=== PATIENT | female | born 1960 | race Caucasian/White ===

== ENCOUNTER 2016-11-22 16:37 | Observation (INO) | payer MEDICAID, MEDICARE ==
--- NOTE | 2016-11-22 17:05 | EDM.PDOC ---
<MagalyZak - Last Filed: 11/22/16 20:07> ED HPI GI/ABDOMINAL - General Chief Complaint: Gastrointestinal Problem Stated Complaint: STOMACH PAIN Time Seen by Provider: 11/22/16 16:54 Source of Information: Reports: Patient History Limitations: Reports: No limitations - History of Present Illness INITIAL COMMENTS - FREE TEXT/NARRATIVE: History of present illness: [56-year-old female presenting with acute abdominal pain specifically in the right upper quadrant. Patient has known history of cirrhotic liver and esophageal varices secondary to hepatitis C. She received treatment for hepatitis C and is cured but has subsequent sequelae a from previous disease process. Patient indicates she has been nauseated and vomiting, as well as having some black tarry stools.] Review of systems: As per history of present illness and below otherwise all systems reviewed and negative. Past medical history: As per history of present illness and as reviewed below otherwise noncontributory. Surgical history: As per history of present illness and as reviewed below otherwise noncontributory. Social history: No reported history of drug or alcohol abuse. Family history: As per history of present illness and as reviewed below otherwise noncontributory. Physical exam: HEENT: Atraumatic, normocephalic, pupils reactive, negative for conjunctival pallor or scleral icterus, mucous membranes moist, throat clear, neck supple, nontender, trachea midline. Lungs: Clear to auscultation, breath sounds equal bilaterally, chest nontender. Heart: S1S2, regular, negative for clicks, rubs, or JVD. Abdomen: Soft, nondistended, diffuse tenderness concentrated primarily in the right upper quadrant but with some amount of radiation to the pelvic area Negative for masses, slight amount of liver enlargement noted on palpation approximately 3 cm below last rib. Negative for costovertebral tenderness. Pelvis: Stable nontender. Genitourinary: Deferred. Rectal: Deferred. Extremities: Atraumatic, negative for cords or calf pain. Neurovascular unremarkable. Neuro: Awake, alert, oriented. Cranial nerves II through XII unremarkable. Cerebellum unremarkable. Motor and sensory unremarkable throughout. Exam nonfocal. Rectal exam performed and guaiac was slightly positive for GI bleed. With faint blue tinge to testing media. Patients CT positive for cirrhosis,cholilithiasis and ascites Diagnostics: [CBC, CMP, amylase, lipase, ammonia, CT of abdomen and pelvis] Therapeutics: [IV, Zofran] Impression: [Cirrhosis of the liver, ascites, GI bleed, ] Plan: [admit] Definitive disposition and diagnosis as appropriate pending reevaluation and review of above. - Related Data Allergies/ADRs: Allergies Allergy/AdvReac Type Severity Reaction Status Date / Time No Known Allergies Allergy Verified 11/22/16 17:10 Home Meds: Home Meds Ascorbic Acid/Vitamin E/Biotin [Hair Skin Nails-Biotin Gummies] 1 tab PO DAILY 11/22/16 [History] Cholecalciferol (Vitamin D3) [D3-2000] 5,000 units PO DAILY 11/22/16 [History] Cyanocobalamin (Vitamin B-12) [B-12] 500 mcg PO DAILY 11/22/16 [History] Eszopiclone [Lunesta] 3 mg PO QPM 11/22/16 [History] Fish Oil/DHA/EPA [Fish Oil 1,200 MG] 1,200 mg PO DAILY 11/22/16 [History] Furosemide [Lasix] 20 mg PO DAILY 11/22/16 [History] Ginkgo Biloba 60 mg PO DAILY 11/22/16 [History] Magnesium 250 mg PO DAILY 11/22/16 [History] Melatonin 5 mg PO BEDTIME 11/22/16 [History] Multivitamin [Multivitamins] 1 cap PO DAILY 11/22/16 [History] Pantoprazole [ProTONIX] 40 mg PO BID 11/22/16 [History] Propranolol [Inderal] 10 mg PO BID 11/22/16 [History] Selenium 200 mcg PO BID PRN 11/22/16 [History] Spironolactone [Aldactone] 50 mg PO DAILY 11/22/16 [History] Turmeric Root Extract [Turmeric] 500 mg PO TID 11/22/16 [History] Ubidecarenone [Coq10] 100 mg PO DAILY 11/22/16 [History] ED ROS GENERAL - Review of Systems Review Of Systems: See Below (The history of present illness) ED EXAM, GI/ABD - Physical Exam Exam: See Below (History of present illness) Course - Vital Signs Last Recorded V/S: Last Vital Signs Temp 36.8 C 11/22/16 18:49 Pulse 53 L 11/22/16 21:49 Resp 17 11/22/16 21:49 BP 99/51 L 11/22/16 21:49 Pulse Ox 91 L 11/22/16 21:49 - Orders/Labs/Meds Orders: Active Orders 24 hr Category Date Time Status Patient Status [ADT] Routine ADT 11/22/16 19:44 Active Antiembolic Devices [RC] PER UNIT ROUTINE Care 11/22/16 19:46 Active Intake and Output [RC] QSHIFT Care 11/22/16 19:45 Active Oxygen Therapy [RC] PRN Care 11/22/16 19:44 Active Up to Chair [RC] ASDIRECTED Care 11/22/16 19:44 Active VTE/DVT Education [RC] PER UNIT ROUTINE Care 11/22/16 19:44 Active Vital Signs [RC] Q4H Care 11/22/16 19:44 Active Clear Liquid Diet [DIET] Diet 11/22/16 Breakfast Active Abdomen Pelvis wo Cont [CT] Stat Exams 11/22/16 17:11 Taken CBC W/O DIFF,HEMOGRAM [HEME] AM Lab 11/23/16 05:11 Ordered COMPREHENSIVE METABOLIC PN,CMP [CHEM] AM Lab 11/23/16 05:11 Ordered Ciprofloxacin in D5W [Cipro in D5W 400 MG/200 ML] 400 Med 11/22/16 20:00 Active mg Premix Bag 1 bag IV Q12H Ondansetron [Zofran] Med 11/22/16 19:44 Active 4 mg IVPUSH Q4H PRN Pantoprazole [ProTONIX IV] 40 mg Med 11/22/16 19:45 Active Sodium Chloride 0.9% [Normal Saline] 10 ml IVPUSH Q12H metroNIDAZOLE/Normal Saline [Flagyl 500 MG in NS 100 ML Med 11/23/16 00:00 Active ] 500 mg Premix Bag 1 bag IV QID Sequential Compression Device [OM.PC] Per Unit Routine Oth 11/22/16 19:45 Ordered Resuscitation Status Routine Resus Stat 11/22/16 19:44 Ordered Medication Orders Pantoprazole Sodium 40 mg/ (Sodium Chloride) 10 mls @ 300 mls/hr IVPUSH Q12H GER Last Admin: 11/22/16 19:58 Dose: 300 mls/hr Ciprofloxacin/Dextrose 400 mg/ (Premix) 200 mls @ 200 mls/hr IV Q12H GER Last Admin: 11/22/16 20:31 Dose: 200 mls/hr Metronidazole 500 mg/ Premix 100 mls @ 100 mls/hr IV QID [facility] Last Admin: 11/22/16 23:20 Dose: 100 mls/hr Morphine Sulfate (Morphine) 2 mg IVPUSH Q2H PRN PRN Reason: Pain Last Admin: 11/22/16 23:16 Dose: 2 mg Ondansetron HCl (Zofran) 4 mg IVPUSH Q4H PRN PRN Reason: Nausea Propranolol HCl (Inderal) 10 mg PO BID [facility] Last Admin: 11/22/16 21:17 Dose: 10 mg Labs: Laboratory Tests 11/22/16 11/22/16 11/22/16 Range/Units 17:17 17:17 17:17 WBC 4.40 (4.0-11.0) K/uL RBC 4.35 (4.30-5.90) M/uL Hgb 14.3 (12.0-16.0) g/dL Hct 41.7 (36.0-46.0) % MCV 95.9 (80.0-98.0) fL MCH 32.9 H (27.0-32.0) pg MCHC 34.3 (31.0-37.0) g/dL RDW Std Deviation 56.4 (28.0-62.0) fl RDW Coeff of Tracey 16 H (11.0-15.0) % Plt Count 66 L (150-400) K/uL MPV 9.50 (7.40-12.00) fL Neut % (Auto) 48.5 (48.0-80.0) % Lymph % (Auto) 40.2 H (16.0-40.0) % [place] % (Auto) 9.1 (0.0-15.0) % Eos % (Auto) 2.0 (0.0-7.0) % Baso % (Auto) 0.2 (0.0-1.5) % Neut # (Auto) 2.1 (1.4-5.7) K/uL Lymph # (Auto) 1.8 (0.6-2.4) K/uL [place] # (Auto) 0.4 (0.0-0.8) K/uL Eos # (Auto) 0.1 (0.0-0.7) K/uL Baso # (Auto) 0.0 (0.0-0.1) K/uL Nucleated RBC % 0.0 /100WBC Nucleated RBCs # 0 K/uL INR (0.86-1.11) Sodium 137 (136-146) mmol/L Potassium 4.4 (3.5-5.1) mmol/L Chloride 105 (98-110) mmol/L Carbon Dioxide 25 (21-31) mmol/L BUN 12 (6.0-23.0) mg/dL Creatinine 0.9 (0.6-1.5) mg/dL Est Cr Clr Drug Dosing 59.11 mL/min Estimated GFR (MDRD) > 60.0 ml/min Glucose 87 (60-110) mg/dL Calcium 8.6 L (8.8-10.8) mg/dL Total Bilirubin 2.1 H (0.1-1.5) mg/dL AST 51 H (5-40) IU/L ALT 32 (8-54) IU/L Alkaline Phosphatase 111 (40-150) Ammonia 74 H (14-68) UG/DL Total Protein 6.7 (6.0-8.0) g/dL Albumin 2.9 L (3.5-5.0) g/dL Globulin 3.8 H (2.0-3.5) g/dL Albumin/Globulin Ratio 0.8 L (1.3-2.8) Amylase 89 (10-90) U/L Lipase 118 H (7-80) U/L 11/22/16 Range/Units 17:17 WBC (4.0-11.0) K/uL RBC (4.30-5.90) M/uL Hgb (12.0-16.0) g/dL Hct (36.0-46.0) % MCV (80.0-98.0) fL MCH (27.0-32.0) pg MCHC (31.0-37.0) g/dL RDW Std Deviation (28.0-62.0) fl RDW Coeff of Tracey (11.0-15.0) % Plt Count (150-400) K/uL MPV (7.40-12.00) fL Neut % (Auto) (48.0-80.0) % Lymph % (Auto) (16.0-40.0) % [place] % (Auto) (0.0-15.0) % Eos % (Auto) (0.0-7.0) % Baso % (Auto) (0.0-1.5) % Neut # (Auto) (1.4-5.7) K/uL Lymph # (Auto) (0.6-2.4) K/uL [place] # (Auto) (0.0-0.8) K/uL Eos # (Auto) (0.0-0.7) K/uL Baso # (Auto) (0.0-0.1) K/uL Nucleated RBC % /100WBC Nucleated RBCs # K/uL INR 1.28 H (0.86-1.11) Sodium (136-146) mmol/L Potassium (3.5-5.1) mmol/L Chloride (98-110) mmol/L Carbon Dioxide (21-31) mmol/L BUN (6.0-23.0) mg/dL Creatinine (0.6-1.5) mg/dL Est Cr Clr Drug Dosing mL/min Estimated GFR (MDRD) ml/min Glucose (60-110) mg/dL Calcium (8.8-10.8) mg/dL Total Bilirubin (0.1-1.5) mg/dL AST (5-40) IU/L ALT (8-54) IU/L Alkaline Phosphatase (40-150) Ammonia (14-68) UG/DL Total Protein (6.0-8.0) g/dL Albumin (3.5-5.0) g/dL Globulin (2.0-3.5) g/dL Albumin/Globulin Ratio (1.3-2.8) Amylase (10-90) U/L Lipase (7-80) U/L Meds: Medications Generic Name Dose Route Start Last Admin Trade Name Freq PRN Reason Stop Dose Admin Pantoprazole Sodium 40 mg/ 10 mls @ 300 mls/hr 11/22/16 19:45 11/22/16 19:58 Sodium Chloride IVPUSH 300 mls/hr Q12H GER Administration Ciprofloxacin/Dextrose 400 mg/ 200 mls @ 200 mls/hr 11/22/16 20:00 11/22/16 20:31 Premix IV 200 mls/hr Q12H GER Administration Metronidazole 500 mg/ Premix 100 mls @ 100 mls/hr 11/23/16 00:00 11/22/16 23: 20 IV 100 mls/hr QID GER Administration Morphine Sulfate 2 mg 11/22/16 20:39 11/22/16 23:16 Morphine IVPUSH 2 mg Q2H PRN Administration Pain Ondansetron HCl 4 mg 11/22/16 19:44 Zofran IVPUSH Q4H PRN Nausea Propranolol HCl 10 mg 11/22/16 21:00 11/22/16 21:17 Inderal PO 10 mg BID GER Administration Discontinued Medications Generic Name Dose Route Start Last Admin Trade Name Freq PRN Reason Stop Dose Admin Sodium Chloride 1,000 mls @ 999 mls/hr 11/22/16 17:10 11/22/16 17:30 Normal Saline IV 11/22/16 18:10 999 mls/hr STAT ONE Administration Morphine Sulfate 4 mg 11/22/16 17:10 11/22/16 17:41 Morphine IV 11/22/16 17:11 4 mg ONETIME ONE Administration Morphine Sulfate 4 mg 11/22/16 18:54 11/22/16 19:19 Morphine IV 11/22/16 18:55 4 mg ONETIME ONE Administration Non-Formulary Medication 10 mg 11/22/16 21:00 Propranolol PO BID GER Ondansetron HCl 8 mg 11/22/16 17:10 11/22/16 17:36 Zofran IVPUSH 11/22/16 17:11 8 mg ONETIME ONE Administration Departure - Departure Time of Disposition: 20:01 Disposition: Admitted As Inpatient 68 Condition: good Clinical Impression: Abdominal pain, Colitis, Cholelithiases, Cirrhosis <Miguelina Ambriz - Last Filed: 11/22/16 23:27> ED HPI GI/ABDOMINAL - History of Present Illness INITIAL COMMENTS - FREE TEXT/NARRATIVE: Please note that the case was discussed with our hospitalist Dr. White who also came to the ER to see the patient and evaluate her prior to admission.
[2016-11-22] MEDS ORDERED: Sodium Chloride 0.9% 1,000 ML IV ONE (17:10)
[2016-11-22] MEDS ORDERED: Ondansetron 4 MG/2 ML SDV IVPUSH ONE (17:10)
[2016-11-22] MEDS ORDERED: Morphine 10 MG/ML Syringe IV ONE ×2 (17:10→18:54)
[2016-11-22 17:46] LABS: CHLORIDE,CL 105 mmol/L (98-110); SODIUM,NA 137 mmol/L (136-146)
[2016-11-22] MEDS: Pantoprazole 40 MG in Sodium Chloride 0.9% 10 ML IVPUSH SCH (19:58)
--- NOTE | 2016-11-22 20:00 | PCM.HP ---
H&P History of Present Illness - General Admit Problem/Dx: Admission Diagnosis/Problem Admission Diagnosis/Problem Abdominal pain - History of Present Illness Initial Comments - Free Text/Narative: 56 yo female with pmh of Hepatitis C, liver cirrhosis with multiple banding procedures for esophageal varices. She presents with one day history of right lower quadrant abdominal pain and nausea. She reports dark stool yesterday. She denies any vomiting. She was evaluated in the ED and no melanotic stools were noted on rectal exam with mildly positive heme test. CT scan of the abdomen reported thickening of the ascending colon, cirrhosis of liver, and cholelithiasis. Abdominal Pain Score (Numeric/FACES): 5 - Related Data Allergies/Adverse Reactions: Allergies Allergy/AdvReac Type Severity Reaction Status Date / Time No Known Allergies Allergy Verified 11/22/16 17:10 Home Medications: Home Meds Eszopiclone [Lunesta] 3 mg PO QPM 11/22/16 [History] Furosemide [Lasix] 20 mg PO DAILY 11/22/16 [History] Pantoprazole [ProTONIX] 40 mg PO BID 11/22/16 [History] Propranolol [Inderal] 10 mg PO BID 11/22/16 [History] Spironolactone [Aldactone] 50 mg PO DAILY 11/22/16 [History] Past Medical History - Past Health History Medical/Surgical History: Denies Medical/Surgical History Gastrointestinal 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: Cirrhosis, Hepatitis, Other (see below) Other Gastrointestinal History: esophageal varicies - Infectious Disease History Infectious Disease 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: Chicken pox, Hepatitis C, Measles, Mumps - Past Surgical History GI Surgical 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: Colonoscopy, EGD, Esophageal dilatation Social & Family History - Family History Family Medical History: Noncontributory - Tobacco Use Smoking Status *Q: Light Tobacco Smoker Years of Tobacco use: 4 Packs/Tins Daily: 0.1 - Caffeine Use Caffeine Use: Reports: None - Recreational Drug Use Recreational Drug Use: No H&P Review of Systems - Review of Systems: Review Of Systems: See Below General: Reports: no symptoms HEENT: Reports: no symptoms Pulmonary: Reports: No Symptoms Cardiovascular: Reports: no symptoms Gastrointestinal: Reports: Abdominal pain, Black stool, Nausea. Denies: Bloody stool, Diarrhea, Hematochezia, Vomiting Genitourinary: Reports: no symptoms Musculoskeletal: Reports: no symptoms Skin: Reports: no symptoms Psychiatric: Reports: no symptoms Neurological: Reports: No Symptoms Hematologic/Lymphatic: Reports: no symptoms Immunologic: Reports: no symptoms Exam - Exam Exam: See Below - Vital Signs Vital Signs: Last Vital Signs Temp 36.8 C 11/22/16 18:49 Pulse 52 L 11/22/16 19:18 Resp 18 11/22/16 19:18 BP 102/58 L 11/22/16 19:18 Pulse Ox 95 11/22/16 19:18 Weight: 52.6 kg - Exam General: alert, oriented, 4 Lungs: Clear to auscultation, Normal respiratory effort Cardiovascular: regular rate, regular rhythm Abdomen: normal bowel sounds, tenderness (right sided). No: distention, guarding, rigidity Extremities: normal inspection. No: edema - Patient Data Lab Results last 24 hrs: Laboratory Results - last 24 hr 11/22/16 11/22/16 11/22/16 Range/Units 17:17 17:17 17:17 WBC 4.40 (4.0-11.0) K/uL RBC 4.35 (4.30-5.90) M/uL Hgb 14.3 (12.0-16.0) g/dL Hct 41.7 (36.0-46.0) % MCV 95.9 (80.0-98.0) fL MCH 32.9 H (27.0-32.0) pg MCHC 34.3 (31.0-37.0) g/dL RDW Std Deviation 56.4 (28.0-62.0) fl RDW Coeff of Tracey 16 H (11.0-15.0) % Plt Count 66 L (150-400) K/uL MPV 9.50 (7.40-12.00) fL Neut % (Auto) 48.5 (48.0-80.0) % Lymph % (Auto) 40.2 H (16.0-40.0) % [place] % (Auto) 9.1 (0.0-15.0) % Eos % (Auto) 2.0 (0.0-7.0) % Baso % (Auto) 0.2 (0.0-1.5) % Neut # (Auto) 2.1 (1.4-5.7) K/uL Lymph # (Auto) 1.8 (0.6-2.4) K/uL [place] # (Auto) 0.4 (0.0-0.8) K/uL Eos # (Auto) 0.1 (0.0-0.7) K/uL Baso # (Auto) 0.0 (0.0-0.1) K/uL Nucleated RBC % 0.0 /100WBC Nucleated RBCs # 0 K/uL INR (0.86-1.11) Sodium 137 (136-146) mmol/L Potassium 4.4 (3.5-5.1) mmol/L Chloride 105 (98-110) mmol/L Carbon Dioxide 25 (21-31) mmol/L BUN 12 (6.0-23.0) mg/dL Creatinine 0.9 (0.6-1.5) mg/dL Est Cr Clr Drug Dosing 59.11 mL/min Estimated GFR (MDRD) > 60.0 ml/min Glucose 87 (60-110) mg/dL Calcium 8.6 L (8.8-10.8) mg/dL Total Bilirubin 2.1 H (0.1-1.5) mg/dL AST 51 H (5-40) IU/L ALT 32 (8-54) IU/L Alkaline Phosphatase 111 (40-150) Ammonia 74 H (14-68) UG/DL Total Protein 6.7 (6.0-8.0) g/dL Albumin 2.9 L (3.5-5.0) g/dL Globulin 3.8 H (2.0-3.5) g/dL Albumin/Globulin Ratio 0.8 L (1.3-2.8) Amylase 89 (10-90) U/L Lipase 118 H (7-80) U/L 11/22/16 Range/Units 17:17 WBC (4.0-11.0) K/uL RBC (4.30-5.90) M/uL Hgb (12.0-16.0) g/dL Hct (36.0-46.0) % MCV (80.0-98.0) fL MCH (27.0-32.0) pg MCHC (31.0-37.0) g/dL RDW Std Deviation (28.0-62.0) fl RDW Coeff of Tracey (11.0-15.0) % Plt Count (150-400) K/uL MPV (7.40-12.00) fL Neut % (Auto) (48.0-80.0) % Lymph % (Auto) (16.0-40.0) % [place] % (Auto) (0.0-15.0) % Eos % (Auto) (0.0-7.0) % Baso % (Auto) (0.0-1.5) % Neut # (Auto) (1.4-5.7) K/uL Lymph # (Auto) (0.6-2.4) K/uL [place] # (Auto) (0.0-0.8) K/uL Eos # (Auto) (0.0-0.7) K/uL Baso # (Auto) (0.0-0.1) K/uL Nucleated RBC % /100WBC Nucleated RBCs # K/uL INR 1.28 H (0.86-1.11) Sodium (136-146) mmol/L Potassium (3.5-5.1) mmol/L Chloride (98-110) mmol/L Carbon Dioxide (21-31) mmol/L BUN (6.0-23.0) mg/dL Creatinine (0.6-1.5) mg/dL Est Cr Clr Drug Dosing mL/min Estimated GFR (MDRD) ml/min Glucose (60-110) mg/dL Calcium (8.8-10.8) mg/dL Total Bilirubin (0.1-1.5) mg/dL AST (5-40) IU/L ALT (8-54) IU/L Alkaline Phosphatase (40-150) Ammonia (14-68) UG/DL Total Protein (6.0-8.0) g/dL Albumin (3.5-5.0) g/dL Globulin (2.0-3.5) g/dL Albumin/Globulin Ratio (1.3-2.8) Amylase (10-90) U/L Lipase (7-80) U/L Result Diagrams: 11/22/16 17:17 11/22/16 17:17 *Q Meaningful Use (ADM) - VTE *Q VTE Criteria *Q: - Stroke *Q Stroke Criteria *Q: - AMI *Q AMI Criteria *Q: Problem List Initiated/Reviewed/Updated: Yes Orders Last 24hrs: Active Orders 24 hr Category Date Time Status Patient Status [ADT] Routine ADT 11/22/16 19:44 Ordered Antiembolic Devices [RC] PER UNIT ROUTINE Care 11/22/16 19:46 Ordered Intake and Output [RC] QSHIFT Care 11/22/16 19:45 Ordered Oxygen Therapy [RC] PRN Care 11/22/16 19:44 Ordered Up to Chair [RC] ASDIRECTED Care 11/22/16 19:44 Ordered VTE/DVT Education [RC] PER UNIT ROUTINE Care 11/22/16 19:44 Ordered Vital Signs [RC] Q4H Care 11/22/16 19:44 Ordered Clear Liquid Diet [DIET] Diet 11/22/16 Breakfast Ordered Abdomen Pelvis wo Cont [CT] Stat Exams 11/22/16 17:11 Taken CBC W/O DIFF,HEMOGRAM [HEME] AM Lab 11/23/16 05:11 Ordered COMPREHENSIVE METABOLIC PN,CMP [CHEM] AM Lab 11/23/16 05:11 Ordered Ondansetron [Zofran] Med 11/22/16 19:44 Ordered 4 mg IVPUSH Q4H PRN Pantoprazole [ProTONIX IV] 40 mg Med 11/22/16 19:45 Ordered Sodium Chloride 0.9% [Normal Saline] 10 ml IVPUSH Q12H Sequential Compression Device [OM.PC] Per Unit Routine Oth 11/22/16 19:45 Ordered Resuscitation Status Routine Resus Stat 11/22/16 19:44 Ordered Medication Orders Pantoprazole Sodium 40 mg/ (Sodium Chloride) 10 mls @ 300 mls/hr IVPUSH Q12H GER Ondansetron HCl (Zofran) 4 mg IVPUSH Q4H PRN PRN Reason: Nausea Assessment/Plan Comment:: 56 yo female presented with right sided abdominal pain. I suspect colitis. Patient has received one liter of fluids. Will start Flagyl and ciprofloxacin. I spoke with Dr. Pham regarding her report of dark stools, abdominal pain and history of varices. As the patient was stable and active bleeding was thought less likely he did not believe endoscopy was needed and recommended outpatient GI follow up. Patient will continue protonix and propranolol.
[2016-11-22] MEDS: Ciprofloxacin in D5W 400 MG in Premix Bag 1 BAG IV SCH ×2 (20:31)
[2016-11-22] MEDS ORDERED: PROPRANOLOL 10 MG PO SCH (21:00)
[2016-11-22] MEDS: Propranolol 20 MG Tab PO SCH (21:17)
[2016-11-22] MEDS: Morphine 2 MG/ML Syringe IVPUSH PRN (23:16)
[2016-11-22] MEDS: metroNIDAZOLE/Normal Saline 500 MG in Premix Bag 1 BAG IV SCH (23:20)
[2016-11-22] MEDS: Ondansetron 4 MG/2 ML SDV IVPUSH PRN (23:27)
[2016-11-23] MEDS ORDERED: diphenhydrAMINE 25 MG Cap PO PRN (00:05)
[2016-11-23] MEDS: Morphine 2 MG/ML Syringe IVPUSH PRN ×6 (01:26→12:37)
[2016-11-23] MEDS: Ondansetron 4 MG/2 ML SDV IVPUSH PRN ×2 (04:07→10:45)
[2016-11-23 05:53] LABS: CHLORIDE,CL 107 mmol/L (98-110); SODIUM,NA 138 mmol/L (136-146)
[2016-11-23] MEDS: metroNIDAZOLE/Normal Saline 500 MG in Premix Bag 1 BAG IV SCH ×2 (06:03→11:10)
[2016-11-23] MEDS: Pantoprazole 40 MG in Sodium Chloride 0.9% 10 ML IVPUSH SCH (06:52)
[2016-11-23] MEDS: Ciprofloxacin in D5W 400 MG in Premix Bag 1 BAG IV SCH ×2 (07:22)
[2016-11-23] MEDS ORDERED: Acetaminophen 325 MG Tab PO PRN (07:37)
[2016-11-23] MEDS ORDERED: Promethazine 25 MG/ML SDV IM PRN (07:38)
[2016-11-23] MEDS: Propranolol 20 MG Tab PO SCH (08:32)
[2016-11-23] MEDS ORDERED: traMADol 50 MG Tab PO PRN (09:13)
--- NOTE | 2016-11-23 09:13 | PCM.PN ---
- General Info Date of Service: 11/23/16 - Patient Data Vitals - most recent: Last Vital Signs Temp 97.6 F 11/23/16 08:30 Pulse 61 11/23/16 08:30 Resp 12 11/23/16 08:30 BP 104/59 L 11/23/16 08:30 Pulse Ox 90 L 11/23/16 08:30 Weight - most recent: 114 lb 4.8 oz I&O - last 24 hours: Intake & Output 11/22/16 11/23/16 11/23/16 22:59 06:59 14:59 Intake Total 200 500 200 Output Total 600 Balance 200 -100 200 Lab Results last 24 hrs: Laboratory Results - last 24 hr 11/23/16 11/23/16 Range/Units 04:49 04:49 WBC 4.70 (4.0-11.0) K/uL RBC 4.09 L (4.30-5.90) M/uL Hgb 13.5 (12.0-16.0) g/dL Hct 39.3 (36.0-46.0) % MCV 96.1 (80.0-98.0) fL MCH 33.0 H (27.0-32.0) pg MCHC 34.4 (31.0-37.0) g/dL RDW Std Deviation 55.8 (28.0-62.0) fl RDW Coeff of Tracey 16 H (11.0-15.0) % Plt Count 39 L (150-400) K/uL MPV 10.10 (7.40-12.00) fL Nucleated RBC % 0.0 /100WBC Nucleated RBCs # 0 K/uL Sodium 138 (136-146) mmol/L Potassium 4.1 (3.5-5.1) mmol/L Chloride 107 (98-110) mmol/L Carbon Dioxide 22 (21-31) mmol/L BUN 13 (6.0-23.0) mg/dL Creatinine 0.8 (0.6-1.5) mg/dL Est Cr Clr Drug Dosing 65.80 mL/min Estimated GFR (MDRD) > 60.0 ml/min Glucose 61 (60-110) mg/dL Calcium 7.9 L (8.8-10.8) mg/dL Total Bilirubin 2.3 H (0.1-1.5) mg/dL AST 44 H (5-40) IU/L ALT 29 (8-54) IU/L Alkaline Phosphatase 93 (40-150) Total Protein 6.2 (6.0-8.0) g/dL Albumin 2.8 L (3.5-5.0) g/dL Globulin 3.4 (2.0-3.5) g/dL Albumin/Globulin Ratio 0.8 L (1.3-2.8) Med Orders - Current: Current Medications Acetaminophen (Tylenol) 325 mg PO Q8H PRN PRN Reason: Pain/Fever Last Admin: 11/23/16 08:32 Dose: 325 mg Diphenhydramine HCl (Benadryl) 25 mg PO Q6H PRN PRN Reason: Itching Last Admin: 11/23/16 00:47 Dose: 25 mg Pantoprazole Sodium 40 mg/ (Sodium Chloride) 10 mls @ 300 mls/hr IVPUSH Q12H [facility] Last Admin: 11/23/16 06:52 Dose: 300 mls/hr Ciprofloxacin/Dextrose 400 mg/ (Premix) 200 mls @ 200 mls/hr IV Q12H [facility] Last Admin: 11/23/16 07:22 Dose: 200 mls/hr Metronidazole 500 mg/ Premix 100 mls @ 100 mls/hr IV QID [facility] Last Admin: 11/23/16 06:03 Dose: 100 mls/hr Morphine Sulfate (Morphine) 2 mg IVPUSH Q2H PRN PRN Reason: Pain Last Admin: 11/23/16 07:22 Dose: 2 mg Ondansetron HCl (Zofran) 4 mg IVPUSH Q4H PRN PRN Reason: Nausea Last Admin: 11/23/16 04:07 Dose: 4 mg Promethazine HCl (Phenergan) 12.5 mg IM Q6H PRN PRN Reason: Abdominal Pain Last Admin: 11/23/16 07:51 Dose: 12.5 mg Propranolol HCl (Inderal) 10 mg PO BID [facility] Last Admin: 11/23/16 08:32 Dose: 10 mg Discontinued Medications Sodium Chloride (Normal Saline) 1,000 mls @ 999 mls/hr IV STAT ONE Stop: 11/22/16 18:10 Last Admin: 11/22/16 17:30 Dose: 999 mls/hr Morphine Sulfate (Morphine) 4 mg IV ONETIME ONE Stop: 11/22/16 17:11 Last Admin: 11/22/16 17:41 Dose: 4 mg Morphine Sulfate (Morphine) 4 mg IV ONETIME ONE Stop: 11/22/16 18:55 Last Admin: 11/22/16 19:19 Dose: 4 mg Non-Formulary Medication (Propranolol) 10 mg PO BID GER Ondansetron HCl (Zofran) 8 mg IVPUSH ONETIME ONE Stop: 11/22/16 17:11 Last Admin: 11/22/16 17:36 Dose: 8 mg - Plan Plan:: 56 yo female presented with right sided abdominal pain. I suspect colitis. Patient has received one liter of fluids. Will start Flagyl and ciprofloxacin. I spoke with Dr. Pham regarding her report of dark stools, abdominal pain and history of varices. As the patient was stable and active bleeding was thought less likely he did not believe endoscopy was needed and recommended outpatient GI follow up. Patient will continue protonix and propranolol.
[2016-11-23] MEDS ORDERED: LORazepam 0.5 MG Tab PO PRN (09:15)
[2016-11-23 12:07] VITALS: BP 97/61
--- NOTE | 2016-11-23 14:09 | CT ---
EXAM DATE: 11/22/16 PATIENT'S AGE: 56 Patient: AURA SANTOYO Facility: [place], [place] Site . Site : [id number] Study: CT Abdomen/Pelvis [id number]/10/2017 5:32:18 PM Ordering Physician: Doctor Coto Final Report: INDICATION: abd pain TECHNIQUE: CT abdomen and pelvis without contrast. COMPARISON: None FINDINGS: Lower chest: Obstructive lung disease. Mild scarring /atelectasis. Liver: Nodular contour of the liver. Spleen: Splenomegaly. Pancreas: Unremarkable. Gallbladder and bile ducts: Cholelithiasis. Kidneys: Unremarkable. No kidney or ureteral stones and no hydronephrosis. Adrenal glands: Unremarkable. GI tract: Apparent thickening of the ascending colon. Appendix is normal. Vascular structures: Varicosities. Atherosclerotic disease. Lymph nodes: Unremarkable. Miscellaneous: Unremarkable. Ascites. Pelvic Organs: Unremarkable. Bones: Degenerative changes. IMPRESSION: 1. Apparent thickening of the ascending colon. Please correlate for colitis. 2. Cirrhosis with findings consistent with portal hypertension. 3. Nonspecific ascites. 4. Cholelithiasis. Dictated by Umer Fernández MD @ 11/22/2016 6:12:14 PM Dictated by: Umer Fernández MD @ 11/22/2016 18:12:44 (Electronic Signature) Report Signed by Proxy and Original Signed Document filed in the Medical Record. [facility]
--- NOTE | 2016-11-25 11:52 | PCM.DCSUM1 ---
Discharge Summary - Hospital Course Free Text/Narrative:: admission diagnosis: 1.lower abdominal pain with nausea 2. liver cirrhosis 3. melena Discharge diagnosis: 1. lower abdominal pain with nausea, improved 2. liver cirrhosis 3. cholelithiasis 4. thrombocytopenia 56 year old female with a history of liver cirrhosis, hepatits C, esophageal varices that was admitted with lower abdominal pain and nausea. Heme occult was only mildly positive. Abdomen/pelvis CT showed thickening of the ascending colon suggestive of colitis, liver cirrhosis with portal HTN, cholelithiasis and ascites. LFT's were normal. AST, ammonia and lipase were slightly elevated. WBC count was normal. Patient started on IV ciprofloxacin and Flagyl and IV protonix. Patient given tramadol at suggestion of hospital pharmacist given the patients liver cirrhosis which helped control and improve the patients abdominal pain. CBC showed a worsening platelet count (66 to 39). GI specialist in [place] was contacted due to the low platelet count and he did not think the patient needed to be transferred for a platelet infusion if she was not actively bleeding. INR was 1.28. Patient received zofran for nausea which helped. Patient felt improved at time of discharge. - Discharge Data Discharge Date: 11/23/16 Discharge Disposition: Home, Self-Care 01 Condition: Fair - Patient Instructions Diet: Usual Diet as Tolerated Activity: As Tolerated Driving: May Drive Today Showering/Bathing: May Shower Notify Provider of: Fever, Increased Pain, Nausea and/or Vomiting Other/Special Instructions: Patient needs appointment setup with a GI specialist secondary to liver cirrhosis, esophageal varices, and low platelet count - Discharge Plan Prescriptions/Med Rec: Ciprofloxacin [Ciprofloxacin HCl] 500 mg PO BID #12 tablet Ondansetron [Zofran ODT] 4 mg PO Q4H PRN #30 tab.dis PRN Reason: Nausea metroNIDAZOLE [Flagyl] 500 mg PO Q6H #24 tablet traMADol [Ultram] 50 mg PO TID PRN #4 tablet PRN Reason: Pain Home Medications: Home Meds Ascorbic Acid/Vitamin E/Biotin [Hair Skin Nails-Biotin Gummies] 1 tab PO DAILY 11/22/16 [History] Cholecalciferol (Vitamin D3) [D3-2000] 5,000 units PO DAILY 11/22/16 [History] Cyanocobalamin (Vitamin B-12) [B-12] 500 mcg PO DAILY 11/22/16 [History] Eszopiclone [Lunesta] 3 mg PO QPM 11/22/16 [History] Fish Oil/DHA/EPA [Fish Oil 1,200 MG] 1,200 mg PO DAILY 11/22/16 [History] Furosemide [Lasix] 20 mg PO DAILY 11/22/16 [History] Ginkgo Biloba 60 mg PO DAILY 11/22/16 [History] Magnesium 250 mg PO DAILY 11/22/16 [History] Melatonin 5 mg PO BEDTIME 11/22/16 [History] Multivitamin [Multivitamins] 1 cap PO DAILY 11/22/16 [History] Pantoprazole [ProTONIX] 40 mg PO BID 11/22/16 [History] Propranolol [Inderal] 10 mg PO BID 11/22/16 [History] Selenium 200 mcg PO BID PRN 11/22/16 [History] Spironolactone [Aldactone] 50 mg PO DAILY 11/22/16 [History] Turmeric Root Extract [Turmeric] 500 mg PO TID 11/22/16 [History] Ubidecarenone [Coq10] 100 mg PO DAILY 11/22/16 [History] Ciprofloxacin [Ciprofloxacin HCl] 500 mg PO BID #12 tablet 11/23/16 [Rx] Ondansetron [Zofran ODT] 4 mg PO Q4H PRN #30 tab.dis 11/23/16 [Rx] metroNIDAZOLE [Flagyl] 500 mg PO Q6H #24 tablet 11/23/16 [Rx] traMADol [Ultram] 50 mg PO TID PRN #4 tablet 11/23/16 [Rx] Patient Handouts: Abdominal Pain, Adult, Tramadol tablets, Colitis, Ciprofloxacin tablets, Metronidazole tablets or capsules Referrals: [facility] [Outside] [facility] [Outside] Froilan Quintanilla MD [Ordering Only Provider] - 02/07/17 2:30 pm Queta Dumas MD [Physician] - 12/01/16 10:45 am - Discharge Summary/Plan Comment DC Time >30 min.: No Discharge Summary/Plan Comment: admission diagnosis: 1.lower abdominal pain with nausea 2. liver cirrhosis 3. melena Discharge diagnosis: 1. lower abdominal pain with nausea, improved 2. liver cirrhosis 3. cholelithiasis 4. thrombocytopenia 56 year old female with a history of liver cirrhosis, hepatits C, esophageal varices that was admitted with lower abdominal pain and nausea. Heme occult was only mildly positive. Abdomen/pelvis CT showed thickening of the ascending colon suggestive of colitis, liver cirrhosis with portal HTN, cholelithiasis and ascites. LFT's were normal. AST, ammonia and lipase were slightly elevated. WBC count was normal. Patient started on IV ciprofloxacin and Flagyl and IV protonix. Patient given tramadol at suggestion of hospital pharmacist given the patients liver cirrhosis which helped control and improve the patients abdominal pain. CBC showed a worsening platelet count (66 to 39). GI specialist in [place] was contacted due to the low platelet count and he did not think the patient needed to be transferred for a platelet infusion if she was not actively bleeding. INR was 1.28. Patient received zofran for nausea which helped. Patient felt improved at time of discharge. Discharge plan: 1. Patient will see Dr. Quintanilla, GI specialist in [place], on January 18. 2. f/u with Dr. Dumas, PCP. 3. Prescribed Ciprofloxacin 500mg BID for 6 days and Flagyl 500mg QID for 6 days. 4. Tramadol 50mg TID, 4 tabs, 0 refiils. - Patient Data Vitals - Most Recent: Last Vital Signs Temp 99.5 F 11/23/16 12:06 Pulse 55 L 11/23/16 12:06 Resp 12 11/23/16 12:06 BP 97/61 11/23/16 12:06 Pulse Ox 84 L 11/23/16 12:06 Weight - Most Recent: 114 lb 4.8 oz Med Orders - Current: Current Medications Discontinued Medications Acetaminophen (Tylenol) 325 mg PO Q8H PRN PRN Reason: Pain/Fever Last Admin: 11/23/16 08:32 Dose: 325 mg Diphenhydramine HCl (Benadryl) 25 mg PO Q6H PRN PRN Reason: Itching Last Admin: 11/23/16 00:47 Dose: 25 mg Sodium Chloride (Normal Saline) 1,000 mls @ 999 mls/hr IV STAT ONE Stop: 11/22/16 18:10 Last Admin: 11/22/16 17:30 Dose: 999 mls/hr Pantoprazole Sodium 40 mg/ (Sodium Chloride) 10 mls @ 300 mls/hr IVPUSH Q12H [facility] Last Admin: 11/23/16 06:52 Dose: 300 mls/hr Ciprofloxacin/Dextrose 400 mg/ (Premix) 200 mls @ 200 mls/hr IV Q12H [facility] Last Admin: 11/23/16 07:22 Dose: 200 mls/hr Metronidazole 500 mg/ Premix 100 mls @ 100 mls/hr IV QID [facility] Last Admin: 11/23/16 11:10 Dose: 100 mls/hr Lorazepam (Ativan) 0.5 mg PO BID PRN PRN Reason: Agitation Last Admin: 11/23/16 09:23 Dose: 0.5 mg Morphine Sulfate (Morphine) 4 mg IV ONETIME ONE Stop: 11/22/16 17:11 Last Admin: 11/22/16 17:41 Dose: 4 mg Morphine Sulfate (Morphine) 4 mg IV ONETIME ONE Stop: 11/22/16 18:55 Last Admin: 11/22/16 19:19 Dose: 4 mg Morphine Sulfate (Morphine) 2 mg IVPUSH Q2H PRN PRN Reason: Pain Last Admin: 11/23/16 12:37 Dose: 2 mg Non-Formulary Medication (Propranolol) 10 mg PO BID [facility] Ondansetron HCl (Zofran) 8 mg IVPUSH ONETIME ONE Stop: 11/22/16 17:11 Last Admin: 11/22/16 17:36 Dose: 8 mg Ondansetron HCl (Zofran) 4 mg IVPUSH Q4H PRN PRN Reason: Nausea Last Admin: 11/23/16 10:45 Dose: 4 mg Promethazine HCl (Phenergan) 12.5 mg IM Q6H PRN PRN Reason: Abdominal Pain Last Admin: 11/23/16 07:51 Dose: 12.5 mg Propranolol HCl (Inderal) 10 mg PO BID [facility] Last Admin: 11/23/16 08:32 Dose: 10 mg Tramadol HCl (Ultram) 50 mg PO Q12HR PRN PRN Reason: headache Last Admin: 11/23/16 09:22 Dose: 50 mg *Q Meaningful Use (DIS) - VTE *Q VTE Criteria *Q: - Stroke *Q Stroke Criteria *Q: - AMI *Q AMI Criteria *Q:
== END 2016-11-23 13:23 | disposition home or self-care (01) ==
LOC: MW.ED 16:37 → MW.MS 19:44 → UNDOADMOB 19:44 → MW.MS 19:46 → UNDOADMOB 19:46 → MW.MS 20:03
PROVIDERS: ADMIT Internal Medicine; ATTEND Internal Medicine
DX: R10.30 Lower abdominal pain, unspecified (principal); K21.9 Gastro-esophageal reflux disease without esophagitis; D69.6 Thrombocytopenia, unspecified; F17.210 Nicotine dependence, cigarettes, uncomplicated; Z86.19 Personal history of other infectious and parasitic diseases; Z87.19 Personal history of other diseases of the digestive system; Z98.890 Other specified postprocedural states; Z79.899 Other long term (current) drug therapy; Z79.2 Long term (current) use of antibiotics
CPT/HCPCS: 36415; 74176; 80053; 82140; 82150; 83690; 85025; 85027; 85610; 96361; 96365; 96366; 96367; 96372; 96375; 96376; 99285; A9270; C9113; G0378; J0744; J2270; J2405; J2550; J7040; 96374; 99284

== ENCOUNTER 2017-02-15 18:19 | Emergency (ER) | payer MEDICARE ==
[2017-02-15] MEDS ORDERED: Diphtheria,Pertussis(Acell),Tetanus Vaccine 0.5 ML Syringe IM ONE (18:29)
[2017-02-15] MEDS ORDERED: Lidocaine 1% 20 ML MDV INJECT ONE (18:29)
--- NOTE | 2017-02-15 18:33 | EDM.PDOC ---
ED HPI GENERAL MEDICAL PROBLEM - General Chief Complaint: Laceration Stated Complaint: LACERATION LT INDEX FINGER Time Seen by Provider: 02/15/17 18:31 Source of Information: Reports: Patient - History of Present Illness INITIAL COMMENTS - FREE TEXT/NARRATIVE: HISTORY AND PHYSICAL: History of present illness: []Patient cut her finger with a knife, left index finger entirely neurovascularly intact tendons function intact pre-and post suture No fever nausea vomiting chills sweats Review of systems: As per history of present illness and below otherwise all systems reviewed and negative. Past medical history: As per history of present illness and as reviewed below otherwise noncontributory. Surgical history: As per history of present illness and as reviewed below otherwise noncontributory. Social history: No reported history of drug or alcohol abuse. Family history: As per history of present illness and as reviewed below otherwise noncontributory. Physical exam: HEENT: Atraumatic, normocephalic, pupils reactive, negative for conjunctival pallor or scleral icterus, mucous membranes moist, throat clear, neck supple, nontender, trachea midline. Lungs: Clear to auscultation, breath sounds equal bilaterally, chest nontender. Heart: S1S2, regular, negative for clicks, rubs, or JVD. Abdomen: Soft, nondistended, nontender. Negative for masses or hepatosplenomegaly. Negative for costovertebral tenderness. Pelvis: Stable nontender. Genitourinary: Deferred. Rectal: Deferred. Extremities: Atraumatic, negative for cords or calf pain. Neurovascular unremarkable. Neuro: Awake, alert, oriented. Cranial nerves II through XII unremarkable. Cerebellum unremarkable. Motor and sensory unremarkable throughout. Exam nonfocal. Skin as per history of present illness otherwise unremarkable Diagnostics: [] Therapeutics: []Tetanus status is updated Lidocaine Neosporin/bandaging Standard wound care instructions Impression: []Laceration 2 left index. Laceration #1 on dorsum 1.5 cm linear #2 5-0 Monosoft Laceration #2 1.5 cm linear #2 5-0 Monosoft Definitive disposition and diagnosis as appropriate pending reevaluation and review of above. left index finger Pain Score (Numeric/FACES): 8 - Related Data Allergies Allergy/AdvReac Type Severity Reaction Status Date / Time No Known Allergies Allergy Verified 02/15/17 18:32 Home Meds: Home Meds Pantoprazole [ProTONIX] 40 mg PO BID 11/22/16 [History] Propranolol [Inderal] 10 mg PO BID 11/22/16 [History] Ondansetron [Zofran ODT] 4 mg PO Q4H PRN #30 tab.dis 11/23/16 [Rx] Past Medical History - Past Health History Medical/Surgical History: Denies Medical/Surgical History HEENT 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: Other (See Below) Other HEENT History: Dry eyes syndrome, wears reading eyeglasses Cardiovascular 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: None Respiratory 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: None Gastrointestinal 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: Cirrhosis, Hepatitis, Other (See Below) Other Gastrointestinal History: esophageal varicies Genitourinary 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: Other (See Below) Other Genitourinary History: had UTI when she was a teenager 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 , Neurological 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: Other (See Below) Other Neuro History: Started to have a bad headache recently Psychiatric 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: Anxiety Dermatologic 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: Other (See Below) Other Dermatologic History: dry skin - Infectious Disease History Infectious Disease 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: Chicken Pox, Hepatitis C - Past Surgical History GI Surgical 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: Colonoscopy, EGD, Esophageal Dilatation Social & Family History - Family History Family Medical History: Noncontributory - Tobacco Use Smoking Status *Q: Current Some Day Smoker Years of Tobacco use: 4 Packs/Tins Daily: 1 Used Tobacco, but Quit: No Second Hand Smoke Exposure: No - Caffeine Use Caffeine Use: Reports: None - Recreational Drug Use Recreational Drug Use: No ED ROS GENERAL - Review of Systems Review Of Systems: ROS reveals no pertinent complaints other than HPI. ED EXAM, SKIN/RASH Exam: See Below Course - Vital Signs Last Recorded V/S: Last Vital Signs Temp 36.6 C 02/15/17 18:34 Pulse 61 02/15/17 18:34 Resp 18 02/15/17 18:34 BP 98/61 02/15/17 18:34 Pulse Ox 97 02/15/17 18:34 - Orders/Labs/Meds Orders: Active Orders 24 hr Category Date Time Status Vaccines to be Administered [RC] PER UNIT ROUTINE Care 02/15/17 18:29 Active Meds: Medications Discontinued Medications Generic Name Dose Route Start Last Admin Trade Name Freq PRN Reason Stop Dose Admin Diphtheria/Tetanus/Acell Pertussis 0.5 ml 02/15/17 18:29 02/15/17 18:36 Adacel IM 02/15/17 18:30 0.5 ml .ONCE ONE Administration Lidocaine HCl 20 ml 02/15/17 18:29 02/15/17 18:37 Xylocaine 1% INJECT 02/15/17 18:30 20 ml ONETIME ONE Administration Departure - Departure Time of Disposition: 18:45 Disposition: Home, Self-Care 01 Condition: Good Clinical Impression: Laceration of finger of left hand - Discharge Information Forms: ED Department Discharge Additional Instructions: Standard wound care instructions Return if symptoms persist or worsen or fever nausea vomiting chills sweats redness warmth or pus drainage Keep wound clean and dry for 48 hours Tube dressing with splint for comfort Sutures out in 10 days The following information is given to patients seen in the emergency department who are being discharged to home. This information is to outline your options for follow-up care. We provide all patients seen in our emergency department with a follow-up referral. The need for follow-up, as well as the timing and circumstances, are variable depending upon the specifics of your emergency department visit. If you don't have a primary care physician on staff, we will provide you with a referral. We always advise you to contact your personal physician following an emergency department visit to inform them of the circumstance of the visit and for follow-up with them and/or the need for any referrals to a consulting specialist. The emergency department will also refer you to a specialist when appropriate. This referral assures that you have the opportunity for follow-up care with a specialist. All of these measure are taken in an effort to provide you with optimal care, which includes your follow-up. Under all circumstances we always encourage you to contact your private physician who remains a resource for coordinating your care. When calling for follow-up care, please make the office aware that this follow-up is from your recent emergency room visit. If for any reason you are refused follow-up, please contact the [facility] emergency department at and asked to speak to the emergency department charge nurse. - My Orders Last 24 Hours: My Active Orders 02/15/17 18:29 Vaccines to be Administered [RC] PER UNIT ROUTINE - Assessment/Plan Last 24 Hours: My Active Orders 02/15/17 18:29 Vaccines to be Administered [RC] PER UNIT ROUTINE
[2017-02-15 18:36] VITALS: BP 98/61
[2017-02-15] MEDS ORDERED: Bacitracin Oint 1 GM U/D Packet TOP ONE (18:49)
== END 2017-02-15 19:03 | disposition home or self-care (01) ==
LOC: MW.ED 18:19
DX: S61.211A Laceration without foreign body of left index finger without damage to nail, initial encounter (principal); F17.210 Nicotine dependence, cigarettes, uncomplicated; F41.9 Anxiety disorder, unspecified; Z23 Encounter for immunization; Z98.890 Other specified postprocedural states; W26.0XXA Contact with knife, initial encounter
CPT/HCPCS: 12002; 90471; 90715; 99283; 99283-25

== ENCOUNTER 2017-02-20 17:28 | Emergency (ER) | payer MEDICARE ==
[2017-02-20] MEDS ORDERED: Ketorolac 30 MG/ML SDV IVPUSH ONE (17:49)
[2017-02-20] MEDS ORDERED: Sodium Chloride 0.9% 1,000 ML IV ONE (17:49)
[2017-02-20] MEDS ORDERED: ceFAZolin 2 GM in Premix Bag 1 BAG IV ONE (17:49)
--- NOTE | 2017-02-20 18:04 | EDM.PDOC ---
ED HPI GENERAL MEDICAL PROBLEM - General Chief Complaint: Upper Extremity Injury/Pain Stated Complaint: POSSIBLE INFECTION LT INDEX FINGER Time Seen by Provider: 02/20/17 17:45 Source of Information: Reports: Patient History Limitations: Reports: No Limitations - History of Present Illness INITIAL COMMENTS - FREE TEXT/NARRATIVE: History of present illness: [56-year-old female presenting status post suture to left index finger. Patient comes back in now concerned that she has infection as well as swelling] Review of systems: As per history of present illness and below otherwise all systems reviewed and negative. Past medical history: As per history of present illness and as reviewed below otherwise noncontributory. Surgical history: As per history of present illness and as reviewed below otherwise noncontributory. Social history: No reported history of drug or alcohol abuse. Family history: As per history of present illness and as reviewed below otherwise noncontributory. Physical exam: HEENT: Atraumatic, normocephalic, pupils reactive, negative for conjunctival pallor or scleral icterus, mucous membranes moist, throat clear, neck supple, nontender, trachea midline. Lungs: Clear to auscultation, breath sounds equal bilaterally, chest nontender. Heart: S1S2, regular, negative for clicks, rubs, or JVD. Abdomen: Soft, nondistended, nontender. Negative for masses or hepatosplenomegaly. Negative for costovertebral tenderness. Pelvis: Stable nontender. Genitourinary: Deferred. Rectal: Deferred. Extremities: Left index finger with sutures, erythema and the presence of some cellulitis, negative for cords or calf pain. Neurovascular unremarkable. Neuro: Awake, alert, oriented. Cranial nerves II through XII unremarkable. Cerebellum unremarkable. Motor and sensory unremarkable throughout. Exam nonfocal. Diagnostics: [] Therapeutics: [IV fluid, 2 g Rocephin, Toradol] Impression: [Cellulitis] Plan: [Continue on antibiotics that have been prescribed] Definitive disposition and diagnosis as appropriate pending reevaluation and review of above. Left Index Finger Pain Score (Numeric/FACES): 8 - Related Data Allergies Allergy/AdvReac Type Severity Reaction Status Date / Time No Known Allergies Allergy Verified 02/20/17 17:41 Home Meds: Home Meds Pantoprazole [ProTONIX] 40 mg PO BID 11/22/16 [History] Propranolol [Inderal] 10 mg PO BID 11/22/16 [History] Furosemide [Lasix] 20 mg PO ONETIME 02/20/17 [History] Spironolactone [Aldactone] 25 mg PO 02/20/17 [History] Past Medical History - Past Health History Medical/Surgical History: Denies Medical/Surgical History HEENT 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: Other (See Below) Other HEENT History: Dry eyes syndrome, wears reading eyeglasses Cardiovascular 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: None Respiratory 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: None Gastrointestinal 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: Cirrhosis, Hepatitis, Other (See Below) Other Gastrointestinal History: esophageal varicies Genitourinary 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: Other (See Below) Other Genitourinary History: had UTI when she was a teenager 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 , Neurological 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: Other (See Below) Other Neuro History: Started to have a bad headache recently Psychiatric 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: Anxiety Dermatologic 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: Other (See Below) Other Dermatologic History: dry skin - Infectious Disease History Infectious Disease 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: Chicken Pox, Hepatitis C - Past Surgical History HEENT Surgical 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: None GI Surgical 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: Colonoscopy, EGD, Esophageal Dilatation Social & Family History - Family History Family Medical History: Noncontributory - Tobacco Use Smoking Status *Q: Current Every Day Smoker Years of Tobacco use: 8 Packs/Tins Daily: 0.5 Used Tobacco, but Quit: No Second Hand Smoke Exposure: No - Caffeine Use Caffeine Use: Reports: Coffee - Recreational Drug Use Recreational Drug Use: No Review of Systems - Review of Systems Review Of Systems: See Below (The history of present illness) ED EXAM, GENERAL - Physical Exam Exam: See Below (The history of present illness) Course - Vital Signs Last Recorded V/S: Last Vital Signs Temp 36.7 C 02/20/17 17:43 Pulse 75 02/20/17 17:43 Resp 16 02/20/17 17:43 BP 101/55 L 02/20/17 17:43 Pulse Ox 93 L 02/20/17 17:43 - Orders/Labs/Meds Orders: Active Orders 24 hr Category Date Time Status Sodium Chloride 0.9% [Normal Saline] 1,000 ml Med 02/20/17 17:49 Active IV STAT Medication Orders Sodium Chloride (Normal Saline) 1,000 mls @ 999 mls/hr IV STAT ONE Stop: 02/20/17 18:49 Last Infusion: 02/20/17 18:16 Dose: 300 mls/hr Admin: 02/20/17 18:14 Dose: 999 mls/hr Meds: Medications Generic Name Dose Route Start Last Admin Trade Name Oziel PRN Reason Stop Dose Admin Sodium Chloride 1,000 mls @ 999 mls/hr 02/20/17 17:49 02/20/17 18:16 Normal Saline IV 02/20/17 18:49 300 mls/hr STAT ONE Infusion Discontinued Medications Generic Name Dose Route Start Last Admin Trade Name Oziel PRN Reason Stop Dose Admin Cefazolin Sodium/Dextrose 2 gm 50 mls @ 100 mls/hr 02/20/17 17:49 02/20/17 18 :13 / Premix IV 02/20/17 18:18 100 mls/hr ONETIME ONE Administration Ketorolac Tromethamine 30 mg 02/20/17 17:49 02/20/17 18:12 Toradol IVPUSH 02/20/17 17:50 30 mg ONETIME ONE Administration Departure - Departure Time of Disposition: 18:45 Disposition: Home, Self-Care 01 Condition: Good Clinical Impression: Laceration of finger of left hand - Discharge Information Forms: ED Department Discharge Additional Instructions: The following information is given to patients seen in the emergency department who are being discharged to home. This information is to outline your options for follow-up care. We provide all patients seen in our emergency department with a follow-up referral. The need for follow-up, as well as the timing and circumstances, are variable depending upon the specifics of your emergency department visit. If you don't have a primary care physician on staff, we will provide you with a referral. We always advise you to contact your personal physician following an emergency department visit to inform them of the circumstance of the visit and for follow-up with them and/or the need for any referrals to a consulting specialist. The emergency department will also refer you to a specialist when appropriate. This referral assures that you have the opportunity for follow-up care with a specialist. All of these measure are taken in an effort to provide you with optimal care, which includes your follow-up. Under all circumstances we always encourage you to contact your private physician who remains a resource for coordinating your care. When calling for follow-up care, please make the office aware that this follow-up is from your recent emergency room visit. If for any reason you are refused follow-up, please contact the [facility] Emergency Department at and asked to speak to the emergency department charge nurse. Continue to follow primary care as discussed Return to ED as needed as discussed - My Orders Last 24 Hours: My Active Orders 02/20/17 17:49 Sodium Chloride 0.9% [Normal Saline] 1,000 ml IV STAT - Assessment/Plan Last 24 Hours: My Active Orders 02/20/17 17:49 Sodium Chloride 0.9% [Normal Saline] 1,000 ml IV STAT
[2017-02-20] MEDS ORDERED: Acetaminophen/HYDROcodone 325-5 MG Tab PO ONE (19:24)
[2017-02-20 20:08] VITALS: BP 94/51
== END 2017-02-20 19:55 | disposition home or self-care (01) ==
LOC: MW.ED 17:28
DX: T81.89XA Other complications of procedures, not elsewhere classified, initial encounter (principal); L03.012 Cellulitis of left finger; F17.210 Nicotine dependence, cigarettes, uncomplicated; Z87.440 Personal history of urinary (tract) infections
CPT/HCPCS: 96361; 96365; 96375; 99283; A9270; J0690; J1885; J7040; 99284

== ENCOUNTER 2017-03-09 13:58 | Emergency (ER) | payer MEDICARE ==
--- NOTE | 2017-03-09 14:32 | EDM.PDOC ---
ED HPI GENERAL MEDICAL PROBLEM - General Chief Complaint: Skin Complaint Stated Complaint: PT LT INDEX FINGER INFECTED Time Seen by Provider: 03/09/17 14:26 Source of Information: Reports: Patient History Limitations: Reports: No Limitations - History of Present Illness INITIAL COMMENTS - FREE TEXT/NARRATIVE: HISTORY AND PHYSICAL: []56-year-old female presenting with infection to left index finger History of Present Illness: []Original injury occurred on February 15, 2017 laceration from a knife. Patient tells nurse that she actually was bit by a dog not cut on a knife like she had stated when she was to the emergency room on February 15. Patient is complaining that the original injury had "never been disinfected before sewing together" Patient returned to the emergency room on February 18 was placed on Augmentin after given IV antibiotic for cellulitis Patient then saw Yoli Melo M.D. and had further treatment with antibiotics. of Bactrim DS Review of Systems: As per history of present illness and below otherwise all systems reviewed and negative. Past medical history: As per history of present illness and as reviewed below otherwise noncontributory. Surgical history: As per history of present illness and as reviewed below otherwise noncontributory. Social history: No reported history of drug or alcohol abuse. Family history: As per history of present illness and as reviewed below otherwise noncontributory. Physical exam: Alert and oriented female when questions does state that it was a dog bite. HEENT: Atraumatic, normocehpalic, pupils reactive, negative for conjunctival pallor or scleral icterus, mucous membranes moist, throat clear, neck supple, nontender, trachea midline. Lungs: Clear to auscultation, breath sounds equal bilaterally, chest non tender. Heart: S1S2, regular, negative for clicks, rubs, or JVD. Abdomen: Soft, nondistended, nontender. Negative for masses or hepatossplenmegaly. Negative for costovertebral tenderness. Pelvis: Stable nontender. Genitourinary: Deferred. Rectal: Deferred Extremities: Left index finger has erythema, heat, cellulitis, there is also to the posterior an area of eschar. Original laceration was at the area of the eschar. nodules at the knuckle indicating arthritic condition, exquisitely painful to palpation and examination, negative for cords or calf pain. Neurovascular unremarkable. Neuro: Awake, alert, oriented. Cranial nerves II through XII unremarkable. Cerebellum unremarkable. Motor and sensory unremarkable throughout. Exam nonfocal. Discussed case with Dr. Ron and with Dr. White. Treatment at this would be antibiotics Augmentin 875 twice a day. Arrange for her to be seen at Dr. Aguilar' s clinic tomorrow. Diagnostics: [X-ray left index finger, CBC, CMP, blood cultures 2,] Therapeutics: [toradal] Impression: [Osteomyelitis] Plan: [Augmentin 875 twice a day 10 days] Definitive disposition and diagnosis as appropriate pending reevaluation and review of above. Onset: Gradual, Other (February 15, 2017) Duration: Week(s):, Getting Worse Location: Reports: Upper Extremity, Left Severity: Moderate Improves with: Reports: None Worsens with: Reports: None Left 2-Index finger Pain Score (Numeric/FACES): 9 - Related Data Allergies Allergy/AdvReac Type Severity Reaction Status Date / Time No Known Allergies Allergy Verified 02/20/17 17:41 Home Meds: Home Meds Pantoprazole [ProTONIX] 40 mg PO BID 11/22/16 [History] Propranolol [Inderal] 10 mg PO BID 11/22/16 [History] Furosemide [Lasix] 20 mg PO ONETIME 02/20/17 [History] Spironolactone [Aldactone] 25 mg PO 02/20/17 [History] Amoxicillin/Potassium Clav [Augmentin 875-125 Tablet] 1 each PO BID #20 tablet 03/09/17 [Rx] Past Medical History - Past Health History Medical/Surgical History: Denies Medical/Surgical History HEENT 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: Other (See Below) Other HEENT History: Dry eyes syndrome, wears reading eyeglasses Cardiovascular 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: None Respiratory 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: None Gastrointestinal 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: Cirrhosis, Hepatitis, Other (See Below) Other Gastrointestinal History: esophageal varicies Genitourinary 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: Other (See Below) Other Genitourinary History: had UTI when she was a teenager [employer] 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: Ectopic , Neurological 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: Other (See Below) Other Neuro History: Started to have a bad headache recently Psychiatric 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: Anxiety Dermatologic 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: Other (See Below) Other Dermatologic History: dry skin - Infectious Disease History Infectious Disease 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: Chicken Pox, Hepatitis C - Past Surgical History HEENT Surgical 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: None GI Surgical 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: Colonoscopy, EGD, Esophageal Dilatation Social & Family History - Family History Family Medical History: Noncontributory - Tobacco Use Smoking Status *Q: Current Every Day Smoker Years of Tobacco use: 8 Packs/Tins Daily: 0.5 Used Tobacco, but Quit: No Second Hand Smoke Exposure: No - Caffeine Use Caffeine Use: Reports: Coffee - Recreational Drug Use Recreational Drug Use: No ED ROS GENERAL - Review of Systems Review Of Systems: ROS reveals no pertinent complaints other than HPI. ED EXAM, SKIN/RASH Exam: See Below (see dictation) Course - Vital Signs Last Recorded V/S: Last Vital Signs Temp 36.7 C 03/09/17 14:28 Pulse 67 03/09/17 14:28 Resp 18 03/09/17 14:28 BP 123/76 03/09/17 14:28 Pulse Ox 97 03/09/17 14:28 - Orders/Labs/Meds Orders: Active Orders 24 hr Category Date Time Status CULTURE BLOOD [BC] Stat Lab 03/09/17 14:50 Received CULTURE BLOOD [BC] Stat Lab 03/09/17 15:20 Received Sodium Chloride 0.9% [Saline Flush] Med 03/09/17 14:41 Active 10 ml FLUSH ASDIRECTED PRN Sodium Chloride 0.9% [Saline Flush] Med 03/09/17 14:41 Active 2.5 ml FLUSH ASDIRECTED PRN Blood Culture x2 Reflex Set [OM.PC] Stat Oth 03/09/17 14:33 Ordered Saline Lock Insert [OM.PC] Stat Oth 03/09/17 14:41 Ordered Medication Orders Sodium Chloride (Saline Flush) 10 ml FLUSH ASDIRECTED PRN PRN Reason: Keep Vein Open Sodium Chloride (Saline Flush) 2.5 ml FLUSH ASDIRECTED PRN PRN Reason: Keep Vein Open Labs: Laboratory Tests 03/09/17 03/09/17 Range/Units 14:50 14:50 WBC 4.52 (4.0-11.0) K/uL RBC 4.53 (4.30-5.90) M/uL Hgb 15.1 (12.0-16.0) g/dL Hct 42.2 (36.0-46.0) % MCV 93.2 (80.0-98.0) fL MCH 33.3 H (27.0-32.0) pg MCHC 35.8 (31.0-37.0) g/dL RDW Std Deviation 51.7 (28.0-62.0) fl RDW Coeff of Tracey 15 (11.0-15.0) % Plt Count 53 L (150-400) K/uL MPV 9.90 (7.40-12.00) fL Neut % (Auto) 38.2 L (48.0-80.0) % Lymph % (Auto) 47.3 H (16.0-40.0) % [place] % (Auto) 11.7 (0.0-15.0) % Eos % (Auto) 2.4 (0.0-7.0) % Baso % (Auto) 0.4 (0.0-1.5) % Neut # (Auto) 1.7 (1.4-5.7) K/uL Lymph # (Auto) 2.1 (0.6-2.4) K/uL [place] # (Auto) 0.5 (0.0-0.8) K/uL Eos # (Auto) 0.1 (0.0-0.7) K/uL Baso # (Auto) 0.0 (0.0-0.1) K/uL Nucleated RBC % 0.0 /100WBC Nucleated RBCs # 0 K/uL Sodium 135 L (136-146) mmol/L Potassium 4.0 (3.5-5.1) mmol/L Chloride 104 (98-110) mmol/L Carbon Dioxide 23 (21-31) mmol/L BUN 10 (6.0-23.0) mg/dL Creatinine 0.7 (0.6-1.5) mg/dL Est Cr Clr Drug Dosing 72.37 mL/min Estimated GFR (MDRD) > 60.0 ml/min Glucose 79 (60-110) mg/dL Calcium 8.7 L (8.8-10.8) mg/dL Total Bilirubin 4.0 H (0.1-1.5) mg/dL AST 60 H (5-40) IU/L ALT 33 (8-54) IU/L Alkaline Phosphatase 99 (40-150) Total Protein 7.6 (6.0-8.0) g/dL Albumin 3.3 L (3.5-5.0) g/dL Globulin 4.3 H (2.0-3.5) g/dL Albumin/Globulin Ratio 0.8 L (1.3-2.8) Meds: Medications Generic Name Dose Route Start Last Admin Trade Name Freq PRN Reason Stop Dose Admin Sodium Chloride 10 ml 03/09/17 14:41 Saline Flush FLUSH ASDIRECTED PRN Keep Vein Open Sodium Chloride 2.5 ml 03/09/17 14:41 Saline Flush FLUSH ASDIRECTED PRN Keep Vein Open Discontinued Medications Generic Name Dose Route Start Last Admin Trade Name Freq PRN Reason Stop Dose Admin Ketorolac Tromethamine 30 mg 03/09/17 14:58 03/09/17 15:42 Toradol IVPUSH 03/09/17 14:59 30 mg ONETIME ONE Administration Departure - Departure Time of Disposition: 16:38 Disposition: Home, Self-Care 01 Condition: Good Clinical Impression: Cellulitis Qualifiers: Site of cellulitis: other site Qualified Code(s): L03.818 - Cellulitis of other sites Osteomyelitis Qualifiers: Osteomyelitis type: unspecified type Osteomyelitis location: hand Laterality: left Qualified Code(s): M86.9 - Osteomyelitis, unspecified - Discharge Information Prescriptions: Amoxicillin/Potassium Clav [Augmentin 875-125 Tablet] 1 each PO BID #20 tablet Referrals: PCP,None [Primary Care Provider] - Forms: ED Department Discharge Additional Instructions: The following information is given to patients seen in the emergency department who are being discharged to home. This information is to outline your options for follow-up care. We provide all patients seen in our emergency department with a follow-up referral. The need for follow-up, as well as the timing and circumstances, are variable depending upon the specifics of your emergency department visit. If you don't have a primary care physician on staff, we will provide you with a referral. We always advise you to contact your personal physician following an emergency department visit to inform them of the circumstance of the visit and for follow-up with them and/or the need for any referrals to a consulting specialist. The emergency department will also refer you to a specialist when appropriate. This referral assures that you have the opportunity for followup care with a specialist. All of these measure are taken in an effort to provide you with optimal care, which includes your followup. Under all circumstances we always encourage you to contact your private physician who remains a resource for coordinating your care. When calling for followup care, please make the office aware that this follow-up is from your recent emergency room visit. If for any reason you are refused follow-up, please contact the [facility] emergency department at and asked to speak to the emergency department charge nurse. Antibiotics of Augmentin 875/125 were electronically sent to [place] [facility] 1 tablet twice daily 10 days Appointment has been made to see Dr. Rangel, plastic surgeon hand specialist Tuesday at 8:30 AM - My Orders Last 24 Hours: My Active Orders 03/09/17 14:33 Blood Culture x2 Reflex Set [OM.PC] Stat 03/09/17 14:41 Sodium Chloride 0.9% [Saline Flush] 10 ml FLUSH ASDIRECTED PRN Sodium Chloride 0.9% [Saline Flush] 2.5 ml FLUSH ASDIRECTED PRN Saline Lock Insert [OM.PC] Stat 03/09/17 14:50 CULTURE BLOOD [BC] Stat 03/09/17 15:20 CULTURE BLOOD [BC] Stat - Assessment/Plan Last 24 Hours: My Active Orders 03/09/17 14:33 Blood Culture x2 Reflex Set [OM.PC] Stat 03/09/17 14:41 Sodium Chloride 0.9% [Saline Flush] 10 ml FLUSH ASDIRECTED PRN Sodium Chloride 0.9% [Saline Flush] 2.5 ml FLUSH ASDIRECTED PRN Saline Lock Insert [OM.PC] Stat 03/09/17 14:50 CULTURE BLOOD [BC] Stat 03/09/17 15:20 CULTURE BLOOD [BC] Stat
[2017-03-09] MEDS ORDERED: Sodium Chloride 0.9% 10 ML Syringe FLUSH PRN (14:41)
[2017-03-09] MEDS ORDERED: Sodium Chloride 0.9% 2.5 ML Syringe FLUSH PRN (14:41)
[2017-03-09 14:46] VITALS: BP 123/76
[2017-03-09] MEDS ORDERED: Ketorolac 30 MG/ML SDV IVPUSH ONE (14:58)
[2017-03-09 15:22] LABS: CHLORIDE,CL 104 mmol/L (98-110); SODIUM,NA 135 mmol/L (136-146)
--- NOTE | 2017-03-09 15:38 | CR ---
EXAMINATION: Left second digit HISTORY: Infection COMPARISON: None TECHNIQUE: 3 views FINDINGS: There is a mallet finger deformity of the second digit. There is increased sclerosis withi n the distal subchondral aspect of the middle second phalanx. Bone mineralization otherwise appears heterogeneous with vague lucencies also noted within the middle second phalanx. There is possible er osion of the articular surface of the distal phalanx of the second digit. There is overlying soft ti ssue swelling. No subcutaneous gas. IMPRESSION: 1. Mallet finger deformity of the second digit with bone mineralization changes adjacent to the seco nd DIP joint suspicious for septic arthritis/osteomyelitis.
[2017-03-09] MEDS ORDERED: Diclofenac Sodium 75 MG Tab.EC PO ONE (16:58)
== END 2017-03-09 17:20 | disposition home or self-care (01) ==
LOC: MW.ED 13:58
DX: L03.012 Cellulitis of left finger (principal); M86.9 Osteomyelitis, unspecified; F17.210 Nicotine dependence, cigarettes, uncomplicated; Z98.890 Other specified postprocedural states
CPT/HCPCS: 36415; 73140; 80053; 85025; 87040; 96374; 99283; J1885; 99284

== ENCOUNTER 2017-04-20 13:05 | Emergency (ER) | payer MEDICARE ==
[2017-04-20] MEDS ORDERED: Ondansetron 4 MG/2 ML SDV IVPUSH ONE (14:07)
[2017-04-20] MEDS ORDERED: Morphine 2 MG/ML Syringe IVPUSH ONE (14:07)
[2017-04-20] MEDS ORDERED: Sodium Chloride 0.9% 1,000 ML IV ONE (14:07)
[2017-04-20] MEDS ORDERED: Ketorolac 30 MG/ML SDV IVPUSH ONE (14:07)
[2017-04-20 14:50] LABS: CHLORIDE,CL 109 mmol/L (98-110); SODIUM,NA 141 mmol/L (136-146)
--- NOTE | 2017-04-20 15:08 | EDM.PDOC ---
ED HPI GENERAL MEDICAL PROBLEM - General Chief Complaint: Abdominal Pain Stated Complaint: SICK Time Seen by Provider: 04/20/17 13:07 Source of Information: Reports: Patient History Limitations: Reports: No Limitations - History of Present Illness INITIAL COMMENTS - FREE TEXT/NARRATIVE: History of present illness: [56-year-old female comes in complaining of abdominal pain. Patient indicates that she feels that she has exacerbated a umbilical hernia she felt a tearing pain while lifting heavy boxes at her house and now she is in increasing pain.] Review of systems: As per history of present illness and below otherwise all systems reviewed and negative. Past medical history: As per history of present illness and as reviewed below otherwise noncontributory. Surgical history: As per history of present illness and as reviewed below otherwise noncontributory. Social history: No reported history of drug or alcohol abuse. Family history: As per history of present illness and as reviewed below otherwise noncontributory. Physical exam: HEENT: Atraumatic, normocephalic, pupils reactive, negative for conjunctival pallor or scleral icterus, mucous membranes moist, throat clear, neck supple, nontender, trachea midline. Lungs: Clear to auscultation, breath sounds equal bilaterally, chest nontender. Heart: S1S2, regular, negative for clicks, rubs, or JVD. Abdomen: Soft, nondistended, diffuse ed-mbilical pain. Negative for masses or hepatosplenomegaly. Negative for costovertebral tenderness. Pelvis: Stable nontender. Genitourinary: Deferred. Rectal: Deferred. Extremities: Atraumatic, negative for cords or calf pain. Neurovascular unremarkable. Neuro: Awake, alert, oriented. Cranial nerves II through XII unremarkable. Cerebellum unremarkable. Motor and sensory unremarkable throughout. Exam nonfocal. Patient CT revealed some ascites patient has had some chronic issues with the secondary to hepatitis and cirrhosis of liver. Patient does have an appointment next week with her GI for an EGD and indicated that they have tapped her before when she was worse than she has now. Patient verbalizes desire to follow-up with GI next week for any further interventions. We'll give a brief amount of pain medication for home Diagnostics: [CBC, CMP, amylase, lipase, UA, CT of abdomen with contrast] Therapeutics: [IV fluid, Toradol, morphine, Zofran] Impression: [#1 Abdominal pain #2 Ascites] Plan: [Follow-up with GI/appointment next week] Definitive disposition and diagnosis as appropriate pending reevaluation and review of above. abdomen Pain Score (Numeric/FACES): 10 - Related Data Allergies Allergy/AdvReac Type Severity Reaction Status Date / Time No Known Allergies Allergy Verified 04/20/17 13:12 Home Meds: Home Meds Zolpidem [Ambien] 0 mg PO BEDTIME 04/20/17 [History] Past Medical History - Past Health History Medical/Surgical History: Denies Medical/Surgical History HEENT 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: Other (See Below) Other HEENT History: Dry eyes syndrome, wears reading eyeglasses Cardiovascular 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: None Respiratory 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: None Gastrointestinal 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: Cirrhosis, Hepatitis, Other (See Below) Other Gastrointestinal History: esophageal varicies Genitourinary 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: Other (See Below) Other Genitourinary History: had UTI when she was a teenager [employer] 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: Ectopic , Neurological 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: Other (See Below) Other Neuro History: Started to have a bad headache recently Psychiatric 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: Anxiety Endocrine/Metabolic 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: None Hematologic 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: None Immunologic 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: None Oncologic (Cancer) 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: None Dermatologic 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: Other (See Below) Other Dermatologic History: dry skin - Infectious Disease History Infectious Disease 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: Hepatitis C - Past Surgical History Head Surgeries/Procedures: Reports: None HEENT Surgical 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: None GI Surgical 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: Colonoscopy, EGD, Esophageal Dilatation Musculoskeletal Surgical 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: None Social & Family History - Family History Family Medical History: Noncontributory - Tobacco Use Smoking Status *Q: Current Every Day Smoker Years of Tobacco use: 10 Packs/Tins Daily: 1 Used Tobacco, but Quit: No Second Hand Smoke Exposure: No - Caffeine Use Caffeine Use: Reports: Coffee - Recreational Drug Use Recreational Drug Use: No ED ROS GENERAL - Review of Systems Review Of Systems: See Below (See history of present illness) ED EXAM, GENERAL - Physical Exam Exam: See Below (See history of present illness) Course - Vital Signs Last Recorded V/S: Last Vital Signs Temp 36.7 C 04/20/17 13:05 Pulse 70 04/20/17 16:05 Resp 15 04/20/17 16:05 BP 114/65 04/20/17 16:05 Pulse Ox 94 L 04/20/17 16:05 - Orders/Labs/Meds Labs: Laboratory Tests 04/20/17 04/20/17 Range/Units 14:20 14:20 WBC 5.02 (4.0-11.0) K/uL RBC 4.75 (4.30-5.90) M/uL Hgb 15.9 (12.0-16.0) g/dL Hct 44.9 (36.0-46.0) % MCV 94.5 (80.0-98.0) fL MCH 33.5 H (27.0-32.0) pg MCHC 35.4 (31.0-37.0) g/dL RDW Std Deviation 55.0 (28.0-62.0) fl RDW Coeff of Tracey 16 H (11.0-15.0) % Plt Count 30 L (150-400) K/uL MPV 10.70 (7.40-12.00) fL Neut % (Auto) 67.9 (48.0-80.0) % Lymph % (Auto) 21.5 (16.0-40.0) % [place] % (Auto) 9.2 (0.0-15.0) % Eos % (Auto) 1.2 (0.0-7.0) % Baso % (Auto) 0.2 (0.0-1.5) % Neut # (Auto) 3.4 (1.4-5.7) K/uL Lymph # (Auto) 1.1 (0.6-2.4) K/uL [place] # (Auto) 0.5 (0.0-0.8) K/uL Eos # (Auto) 0.1 (0.0-0.7) K/uL Baso # (Auto) 0.0 (0.0-0.1) K/uL Nucleated RBC % 0.0 /100WBC Nucleated RBCs # 0 K/uL Sodium 141 (136-146) mmol/L Potassium 4.1 (3.5-5.1) mmol/L Chloride 109 (98-110) mmol/L Carbon Dioxide 24 (21-31) mmol/L BUN 11 (6.0-23.0) mg/dL Creatinine 0.7 (0.6-1.5) mg/dL Est Cr Clr Drug Dosing 72.52 mL/min Estimated GFR (MDRD) > 60.0 ml/min Glucose 91 (60-110) mg/dL Calcium 9.1 (8.8-10.8) mg/dL Total Bilirubin 3.4 H (0.1-1.5) mg/dL AST 50 H (5-40) IU/L ALT 37 (8-54) IU/L Alkaline Phosphatase 134 (40-150) Total Protein 7.6 (6.0-8.0) g/dL Albumin 3.3 L (3.5-5.0) g/dL Globulin 4.3 H (2.0-3.5) g/dL Albumin/Globulin Ratio 0.8 L (1.3-2.8) Amylase 89 (10-90) U/L Lipase 89 H (7-80) U/L Meds: Medications Discontinued Medications Generic Name Dose Route Start Last Admin Trade Name Freq PRN Reason Stop Dose Admin Sodium Chloride 1,000 mls @ 999 mls/hr 04/20/17 14:07 04/20/17 14:26 Normal Saline IV 04/20/17 15:07 999 mls/hr STAT ONE Administration Iopamidol 100 ml 04/20/17 15:30 04/20/17 15:31 Isovue Multipack-370 (76%) IVPUSH 04/20/17 15:31 100 ml ONETIME STA Administration Ketorolac Tromethamine 30 mg 04/20/17 14:07 04/20/17 14:26 Toradol IVPUSH 04/20/17 14:08 30 mg ONETIME ONE Administration Morphine Sulfate 2 mg 04/20/17 14:07 04/20/17 14:27 Morphine IVPUSH 04/20/17 14:08 2 mg ONETIME ONE Administration Ondansetron HCl 4 mg 04/20/17 14:07 04/20/17 14:26 Zofran IVPUSH 04/20/17 14:08 4 mg ONETIME ONE Administration Departure - Departure Time of Disposition: 16:49 Disposition: Home, Self-Care 01 Condition: Good Clinical Impression: Abdominal pain, Ascites - Discharge Information Referrals: PCP,None [Primary Care Provider] - Forms: ED Department Discharge Additional Instructions: The following information is given to patients seen in the emergency department who are being discharged to home. This information is to outline your options for follow-up care. We provide all patients seen in our emergency department with a follow-up referral. The need for follow-up, as well as the timing and circumstances, are variable depending upon the specifics of your emergency department visit. If you don't have a primary care physician on staff, we will provide you with a referral. We always advise you to contact your personal physician following an emergency department visit to inform them of the circumstance of the visit and for follow-up with them and/or the need for any referrals to a consulting specialist. The emergency department will also refer you to a specialist when appropriate. This referral assures that you have the opportunity for follow-up care with a specialist. All of these measure are taken in an effort to provide you with optimal care, which includes your follow-up. Under all circumstances we always encourage you to contact your private physician who remains a resource for coordinating your care. When calling for follow-up care, please make the office aware that this follow-up is from your recent emergency room visit. If for any reason you are refused follow-up, please contact the [facility] Emergency Department at and asked to speak to the emergency department charge nurse. Take medication as directed Follow-up with your zinc miner blasting next week as discussed Return to ED as needed as discussed
[2017-04-20] MEDS ORDERED: Iopamidol 755 MG/ML 500 ML Multipack Bottle IVPUSH STA (15:30)
--- NOTE | 2017-04-20 16:17 | CT ---
CT of the abdomen and pelvis with contrast. HISTORY: Pain TECHNIQUE: Axial CT images were obtained of the abdomen and pelvis following administration of 100 mL of Isovue-370 right hand without complication. Coronal and sagittal reconstructions obtained. FINDINGS: Emphysematous changes are noted within the lung bases. The heart is normal in size. The liver is notably nodular and appearance with heterogeneous enhancement. No focal hepatic mass. Th e portal vein is dilated however patent. There is recanalization of the umbilical vein. The spleen is enlarged measuring 15 cm. The pancreas and adrenal glands, and gallbladder appear grossly unremarkab le. There is no bulky retroperitoneal lymphadenopathy. Small distal esophageal varices noted. There i s a moderate amount of abdominal ascites. The kidneys enhance and function symmetrically without evidence of obstructive uropathy. Small renal cortical cysts are noted. Clips project within the retroperitoneum on the left. There is a 4 cm soft tissue density projecting anterior to the uterus this was present on the previou s examination, the etiology is uncertain. The large and small bowel are normal in caliber without torres dence of obstruction. The appendix appears normal. No free air. Urinary bladder appears normal. No suspicious osseous abnormalities identified. IMPRESSION: 1. Notably nodular liver consistent with advanced cirrhosis at with prominent splenomegaly. 2. Moderate amount of abdominal ascites. 3. Small esophageal varices noted. 4. Small soft tissue density noted anterior to the uterus, this could represent an ovarian mass or po ssibly a subserosal fibroid the exact etiology is uncertain.
[2017-04-20 17:06] VITALS: BP 129/70
== END 2017-04-20 17:05 | disposition home or self-care (01) ==
LOC: MW.ED 13:05
DX: R10.33 Periumbilical pain (principal); R18.8 Other ascites; F17.210 Nicotine dependence, cigarettes, uncomplicated
CPT/HCPCS: 36415; 74177; 80053; 82150; 83690; 85025; 96361; 96374; 96375; 99284; J1885; J2270; J2405; J7040; Q9967; 99283

== ENCOUNTER 2017-04-21 15:50 | Emergency (ER) | payer MEDICARE ==
[2017-04-21] MEDS ORDERED: Ketorolac 30 MG/ML SDV IVPUSH ONE (16:19)
[2017-04-21] MEDS ORDERED: Ondansetron 4 MG/2 ML SDV IVPUSH ONE ×2 (16:19→16:44)
[2017-04-21] MEDS ORDERED: Sodium Chloride 0.9% 1,000 ML IV ONE ×2 (16:19→18:18)
[2017-04-21] MEDS ORDERED: Pantoprazole 40 MG Vial IVPUSH ONE (16:43)
[2017-04-21] MEDS ORDERED: Metoclopramide 10 MG/2 ML SDV IV ONE (16:44)
[2017-04-21] MEDS ORDERED: Pantoprazole 80 MG in Sodium Chloride 0.9% 100 ML IV SCH (16:45)
--- NOTE | 2017-04-21 16:47 | EDM.PDOC ---
ED HPI GENERAL MEDICAL PROBLEM - General Chief Complaint: Abdominal Pain Stated Complaint: VOMITING BLOOD Time Seen by Provider: 04/21/17 16:00 Source of Information: Reports: Patient History Limitations: Reports: No Limitations - History of Present Illness INITIAL COMMENTS - FREE TEXT/NARRATIVE: History of present illness: 56-year-old female comes in with known esophageal varices complaining of vomiting blood. Patient does have a internal medicine consult next week for evaluation of her esophageal varices but indicates that she has been vomiting blood and is frightened. Review of systems: As per history of present illness and below otherwise all systems reviewed and negative. Past medical history: As per history of present illness and as reviewed below otherwise noncontributory. Surgical history: As per history of present illness and as reviewed below otherwise noncontributory. Social history: No reported history of drug or alcohol abuse. Family history: As per history of present illness and as reviewed below otherwise noncontributory. Physical exam: HEENT: Atraumatic, normocephalic, pupils reactive, negative for conjunctival pallor or scleral icterus, mucous membranes moist, throat clear, neck supple, nontender, trachea midline. Lungs: Clear to auscultation, breath sounds equal bilaterally, chest nontender. Heart: S1S2, regular, negative for clicks, rubs, or JVD. Abdomen: Soft, nondistended,there is nonspecific tenderness. Negative for masses or hepatosplenomegaly. Negative for costovertebral tenderness. Pelvis: Stable nontender. Genitourinary: Deferred. Rectal: Deferred. Extremities: Atraumatic, negative for cords or calf pain. Neurovascular unremarkable. Neuro: Awake, alert, oriented. Cranial nerves II through XII unremarkable. Cerebellum unremarkable. Motor and sensory unremarkable throughout. Exam nonfocal. After vomiting patient indicates she feels significantly better and is asking if you would be okay if she went home. When being told it was important she be evaluated further with a chief architect she then asked if since she felt so well could she take her own transport. Discussed with patient why that would not be in her best interest and patient verbalized understanding. Patient vomited 1500 mils of mixed media with obvious curtis blood Spoke with Dr. Dixon in the ER of [facility] he agreed to take transfer patient but requested that we give octreotide 100 mg prior to transfer Diagnostics: [CBC, CMP, PT INR, type and screen] Therapeutics: [IV fluid, Zofran, Reglan,] Impression: [#1 GI bleed #2 nausea #3 vomiting] Plan: [Transfer] Definitive disposition and diagnosis as appropriate pending reevaluation and review of above. Abdominal Pain Score (Numeric/FACES): 8 - Related Data Allergies Allergy/AdvReac Type Severity Reaction Status Date / Time No Known Allergies Allergy Verified 04/21/17 16:04 Home Meds: Home Meds Zolpidem [Ambien] 10 mg PO BEDTIME PRN 04/20/17 [History] traMADol [Ultram] 100 mg PO TID PRN 04/21/17 [History] Past Medical History - Past Health History Medical/Surgical History: Denies Medical/Surgical History HEENT 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: Other (See Below) Other HEENT History: Dry eyes syndrome, wears reading eyeglasses Cardiovascular 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: None Respiratory 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: None Gastrointestinal 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: Cirrhosis, Hepatitis, Other (See Below) Other Gastrointestinal History: esophageal varicies Genitourinary 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: Other (See Below) Other Genitourinary History: had UTI when she was a teenager [employer]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 , Neurological 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: Other (See Below) Other Neuro History: Started to have a bad headache recently Psychiatric 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: Anxiety Endocrine/Metabolic 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: None Hematologic 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: None Immunologic 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: None Oncologic (Cancer) 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: None Dermatologic 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: Other (See Below) Other Dermatologic History: dry skin - Infectious Disease History Infectious Disease 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: Hepatitis C - Past Surgical History Head Surgeries/Procedures: Reports: None HEENT Surgical 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: None GI Surgical 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: Colonoscopy, EGD, Esophageal Dilatation Musculoskeletal Surgical 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: None Social & Family History - Family History Family Medical History: Noncontributory - Tobacco Use Smoking Status *Q: Current Every Day Smoker Years of Tobacco use: 10 Packs/Tins Daily: 0.2 Used Tobacco, but Quit: No Second Hand Smoke Exposure: No - Caffeine Use Caffeine Use: Reports: None - Recreational Drug Use Recreational Drug Use: No ED ROS GENERAL - Review of Systems Review Of Systems: See Below (History of present illness) ED EXAM, GI/ABD - Physical Exam Exam: See Below (The history of present illness) Course - Vital Signs Last Recorded V/S: Last Vital Signs Temp 36.1 C 04/21/17 16:01 Pulse 127 H 04/21/17 16:01 Resp 18 04/21/17 16:01 BP 116/78 04/21/17 16:01 Pulse Ox 94 L 04/21/17 16:01 - Orders/Labs/Meds Orders: Active Orders 24 hr Category Date Time Status TYPE AND SCREEN [BBK] Stat Lab 04/21/17 16:57 Received Octreotide [SandoSTATIN] Med 04/21/17 17:30 Ordered 100 mcg SUBCUT TID Pantoprazole [ProTONIX IV] 80 mg Med 04/21/17 16:45 Active Sodium Chloride 0.9% [Normal Saline] 100 ml IV .Continuous Medication Orders Pantoprazole Sodium 80 mg/ (Sodium Chloride) 100 mls @ 10 mls/hr IV .Continuous GER Last Admin: 04/21/17 17:18 Dose: 10 mls/hr Labs: Laboratory Tests 04/21/17 04/21/17 04/21/17 Range/Units 16:45 16:45 16:57 WBC 6.88 (4.0-11.0) K/uL RBC 3.75 L (4.30-5.90) M/uL Hgb 12.4 (12.0-16.0) g/dL Hct 35.7 L (36.0-46.0) % MCV 95.2 (80.0-98.0) fL MCH 33.1 H (27.0-32.0) pg MCHC 34.7 (31.0-37.0) g/dL RDW Std Deviation 55.5 (28.0-62.0) fl RDW Coeff of Tracey 16 H (11.0-15.0) % Plt Count 49 L (150-400) K/uL MPV 9.80 (7.40-12.00) fL Neut % (Auto) 66.9 (48.0-80.0) % Lymph % (Auto) 26.3 (16.0-40.0) % Dickey % (Auto) 5.5 (0.0-15.0) % Eos % (Auto) 1.0 (0.0-7.0) % Baso % (Auto) 0.3 (0.0-1.5) % Neut # (Auto) 4.6 (1.4-5.7) K/uL Lymph # (Auto) 1.8 (0.6-2.4) K/uL Dickey # (Auto) 0.4 (0.0-0.8) K/uL Eos # (Auto) 0.1 (0.0-0.7) K/uL Baso # (Auto) 0.0 (0.0-0.1) K/uL Nucleated RBC % 0.0 /100WBC Nucleated RBCs # 0 K/uL INR 1.45 H (0.86-1.11) Sodium 140 (136-146) mmol/L Potassium 4.4 (3.5-5.1) mmol/L Chloride 108 (98-110) mmol/L Carbon Dioxide 26 (21-31) mmol/L BUN 17 (6.0-23.0) mg/dL Creatinine 0.7 (0.6-1.5) mg/dL Est Cr Clr Drug Dosing 74.26 mL/min Estimated GFR (MDRD) > 60.0 ml/min Glucose 111 H (60-110) mg/dL Calcium 8.2 L (8.8-10.8) mg/dL Total Bilirubin 3.1 H (0.1-1.5) mg/dL AST 44 H (5-40) IU/L ALT 30 (8-54) IU/L Alkaline Phosphatase 108 (40-150) Total Protein 6.2 (6.0-8.0) g/dL Albumin 2.8 L (3.5-5.0) g/dL Globulin 3.4 (2.0-3.5) g/dL Albumin/Globulin Ratio 0.8 L (1.3-2.8) Meds: Medications Generic Name Dose Route Start Last Admin Trade Name Freq PRN Reason Stop Dose Admin Pantoprazole Sodium 80 mg/ 100 mls @ 10 mls/hr 04/21/17 16:45 04/21/17 17:18 Sodium Chloride IV 10 mls/hr .Continuous GER Administration Discontinued Medications Generic Name Dose Route Start Last Admin Trade Name Freq PRN Reason Stop Dose Admin Sodium Chloride 1,000 mls @ 999 mls/hr 04/21/17 16:19 04/21/17 17:10 Normal Saline IV 04/21/17 17:19 999 mls/hr STAT ONE Administration Ketorolac Tromethamine 30 mg 04/21/17 16:19 Toradol IVPUSH 04/21/17 16:20 ONETIME ONE Metoclopramide HCl 10 mg 04/21/17 16:44 04/21/17 17:10 Reglan IV 04/21/17 16:45 10 mg ONETIME ONE Administration Ondansetron HCl 4 mg 04/21/17 16:19 04/21/17 17:11 Zofran IVPUSH 04/21/17 16:20 4 mg ONETIME ONE Administration Ondansetron HCl 4 mg 04/21/17 16:44 04/21/17 17:11 Zofran IVPUSH 04/21/17 16:45 4 mg ONETIME ONE Administration Pantoprazole Sodium 80 mg 04/21/17 16:43 04/21/17 17:10 Protonix Iv IVPUSH 04/21/17 16:44 80 mg .BOLUS ONE Administration Departure - Departure Time of Disposition: 17:27 Disposition: DC/Tfer to Acute Hospital 02 Condition: Good Clinical Impression: Abdominal pain, Ascites, GI bleed - Discharge Information Referrals: PCP,None [Primary Care Provider] - Forms: ED Department Discharge - My Orders Last 24 Hours: My Active Orders 04/21/17 16:45 Pantoprazole [ProTONIX IV] 80 mg Sodium Chloride 0.9% [Normal Saline] 100 ml IV .Continuous 04/21/17 16:57 TYPE AND SCREEN [BBK] Stat 04/21/17 17:30 Octreotide [SandoSTATIN] 100 mcg SUBCUT TID - Assessment/Plan Last 24 Hours: My Active Orders 04/21/17 16:45 Pantoprazole [ProTONIX IV] 80 mg Sodium Chloride 0.9% [Normal Saline] 100 ml IV .Continuous 04/21/17 16:57 TYPE AND SCREEN [BBK] Stat 04/21/17 17:30 Octreotide [SandoSTATIN] 100 mcg SUBCUT TID
--- NOTE | 2017-04-21 17:16 | PCM.SN ---
- Free Text/Narrative Note: Dr. Ambriz dictating a note as the supervising physician on this case. The pacing came back to the ER complaining of this persistent abdominal pain and has unknown chronic pain problem for which she has missed to clinic appointments that have been organized for her. On arrival here today she was saying that she is incredibly nauseated that she was vomiting blood. After initial evaluation we were called into the room because the patient had a significant amount of vomitus which was dark bloody in color and character but it was watery in texture consistent with her statements that she had been drinking a lot of coffee and water through the day today. After she had this significant vomitus the patient has no family improved and actually asked if she could go home. She says that the vomiting has basically resolved her abdominal pressure and complaints. Patient was very anxious on arrival and has a history of being very anxious but her vital signs were noted and currently at 17 10 PM her heart rate is 105, which is improved from initial, and her blood pressure is 93/60. Her conjunctiva on my evaluation is pink and she is nontoxic appearing interactive and comfortable. We will monitor her labs but she was made aware that she would need to be transferred to [facility] as we do not have gastroenterology and with her history of cirrhosis and esophageal varices she would need gastroenterology consult on a more emergent basis. She is agreeable to this transfer and we will orchestrate this once we get more lab values. She is currently being started on a Protonix drip and we will continue to monitor her blood pressure and pulse and if there is any significant deviation or deterioration we will change her transportation mode from ground to flight. Critical care time excluding procedures:31min Impression upper GI bleed with history of esophageal varices and cirrhosis
[2017-04-21 17:22] LABS: CHLORIDE,CL 108 mmol/L (98-110); SODIUM,NA 140 mmol/L (136-146)
[2017-04-21] MEDS ORDERED: Octreotide 100 MCG/1 ML Amp SUBCUT SCH (17:30)
[2017-04-21 19:13] VITALS: BP 111/62
== END 2017-04-21 18:52 ==
LOC: MW.ED 15:50
DX: K92.2 Gastrointestinal hemorrhage, unspecified (principal); R18.8 Other ascites; F17.210 Nicotine dependence, cigarettes, uncomplicated; Z87.440 Personal history of urinary (tract) infections
CPT/HCPCS: 36415; 80053; 85025; 85610; 86850; 86900; 86901; 96365; 96372; 96374; 96375; 96376; 99285; C9113; J2354; J2405; J2765; J7030; J7040; 99283

== ENCOUNTER 2017-04-27 13:28 | Emergency (ER) | payer MEDICARE ==
[2017-04-27] MEDS ORDERED: HYDROmorphone 2 MG/ML Syringe IM ONE (14:02)
--- NOTE | 2017-04-27 14:24 | EDM.PDOC ---
ED HPI GENERAL MEDICAL PROBLEM - General Chief Complaint: Abdominal Pain Stated Complaint: HEADACHE AND ABD PAIN Time Seen by Provider: 04/27/17 13:35 - History of Present Illness INITIAL COMMENTS - FREE TEXT/NARRATIVE: HISTORY AND PHYSICAL: History of present illness: The patient is a 56-year-old female with a known history of cirrhosis of the liver esophageal varices who was seen here last week on April 20 for pain in the right upper quadrant and seen on the next day April 21 for vomiting blood and bleeding esophageal varices. She was emergently transferred to [facility] which he underwent emergent endoscopy and banding of a varix. The patient says that she was discharged on the and has been doing relatively well at home eating and drinking normally but was told not to drink coffee and she did have some coffee today. According to the family at bedside and the patient she has had persistent right and left upper abdominal pain that has been ongoing for weeks and is not new or different but they did not give her any specific medications for pain when she was discharged from [place] and she is having this discomfort. The patient has tramadol at home and says it is not working. 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 They're planning to go there tomorrow but would like some management of the pain here in the ED to get her through the next 24 hours. She is currently not nauseated nor any vomiting of blood.. The patient does not feel lightheaded or dizzy but says that she had an episode of lightheadedness 2 days ago she had a brief fainting episode which was not prolonged. The patient sustained a minor scratch at her right hinduism area and since that time has not had any syncope or severe lightheadedness. She has no weakness in any focal area. She has no neck or back pain as a result of those events or currently in the ED. Review of systems: As per history of present illness and below otherwise all systems reviewed and negative. Past medical history: As per history of present illness and as reviewed below otherwise noncontributory. Surgical history: As per history of present illness and as reviewed below otherwise noncontributory. Social history: No reported history of drug or alcohol abuse. Family history: As per history of present illness and as reviewed below otherwise noncontributory. Physical exam: Gen.: Well-developed thin female who is nontoxic and in no distress in the ED. On my evaluation she is interactive and talkative. She intermittently will say that she is having severe pain and start moaning. Her vital signs of the note by me HEENT: Atraumatic, normocephalic, pupils reactive, negative for conjunctival pallor or scleral icterus, mucous membranes moist, throat clear, neck supple, nontender, trachea midline. At the area of the right hinduism that the family indicates she hit 2 days ago there is a small flaky like scab that is incredibly superficial and there is no surrounding soft tissue swelling ecchymosis erythema or deformities. Lungs: Clear to auscultation, breath sounds equal bilaterally, chest nontender. Heart: S1S2, regular, and rhythm no overt murmurs Abdomen: Soft, nondistended, nontender--on my evaluation with distraction I am able to deeply palpate all quadrants without any significant tenderness and there is no rebound or voluntary or involuntary guarding. Bowel sounds are normoactive. Negative for masses or hepatosplenomegaly. . Pelvis: Stable nontender. Genitourinary: Deferred. Rectal: Deferred. Skin: Turgor is normal no evidence of any rashes or lesions Extremities: Atraumatic, negative for cords or calf pain. Neurovascular unremarkable. Neuro: Awake, alert, oriented. Cranial nerves II through XII unremarkable. Cerebellum unremarkable. Motor and sensory unremarkable throughout. Exam nonfocal. Diagnostics: CBC CMP INR CT scan of the head Therapeutics: Dilaudid IM potassium chloride by mouth, magnesium oxide by mouth I reiterated to the patient and family that due to her liver disease we could not give her any Tylenol based products and due to her recent bleeding we could not use any anti-inflammatories. I told her that I could not write for any of the stronger narcotics and that she would need to be seeing somebody or chronic pain management and she has been told this in the past here in the ED on prior visits. It is unclear to her why she did not get any pain medication when she was discharged from [facility] and I feel uncomfortable writing a prescription for anything as they did not either. She has a follow-up appointment in [place] tomorrow which I asked her to address her pain at that time. All of the patient's laboratory testing is improved from her last visit here with the exception of her potassium at 2.5. I will add a magnesium level and give her supplemental potassium. The patient is aware of this and we have research and the patient is currently taking Lasix and spironolactone without potassium supplementation. I will give her prescription for for 2 more doses of potassium and have advised her to have that lab followed up tomorrow when she is seeing her doctor in [place]. Her magnesium level is also low and I will give her a dose here as well as a prescription for 3 more doses and advised her to have that followed up as well with her doctor tomorrow. I've offered her admission to the hospital which is declining at this time as she truly wants to go home ; family members at bedside and will continue to monitor her at home Impression: Chronic abdominal pain, hypokalemia and hypomagnesemia Definitive disposition and diagnosis as appropriate pending reevaluation and review of above. Left Upper Abdomen Pain Score (Numeric/FACES): 9 - Related Data Allergies Allergy/AdvReac Type Severity Reaction Status Date / Time No Known Allergies Allergy Verified 04/27/17 13:43 Home Meds: Home Meds Zolpidem [Ambien] 10 mg PO BEDTIME PRN 04/20/17 [History] traMADol [Ultram] 100 mg PO TID PRN 04/21/17 [History] Furosemide [Lasix] 40 mg PO DAILY 04/27/17 [History] Spironolactone [Aldactone] 25 mg PO DAILY 04/27/17 [History] Past Medical History - Past Health History Medical/Surgical History: Denies Medical/Surgical History HEENT 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: Other (See Below) Other HEENT History: Dry eyes syndrome, wears reading eyeglasses Cardiovascular 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: None Respiratory 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: None Gastrointestinal 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: Cirrhosis, Hepatitis, Other (See Below) Other Gastrointestinal History: esophageal varicies Genitourinary 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: Other (See Below) Other Genitourinary History: had UTI when she was a teenager [employer] 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: Ectopic , Neurological 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: Other (See Below) Other Neuro History: Started to have a bad headache recently Psychiatric 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: Anxiety Endocrine/Metabolic 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: None Hematologic 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: None Immunologic 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: None Oncologic (Cancer) 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: None Dermatologic 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: Other (See Below) Other Dermatologic History: dry skin - Infectious Disease History Infectious Disease 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: Hepatitis C - Past Surgical History Head Surgeries/Procedures: Reports: None HEENT Surgical 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: None GI Surgical 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: Colonoscopy, EGD, Esophageal Dilatation Musculoskeletal Surgical 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: None Social & Family History - Family History Family Medical History: Noncontributory - Tobacco Use Smoking Status *Q: Current Every Day Smoker Years of Tobacco use: 6 Packs/Tins Daily: 0.3 Used Tobacco, but Quit: No Second Hand Smoke Exposure: Yes - Caffeine Use Caffeine Use: Reports: Coffee Caffeine Use Comment: 1 cup every other day - Recreational Drug Use Recreational Drug Use: No ED ROS GENERAL - Review of Systems Review Of Systems: ROS reveals no pertinent complaints other than HPI. ED EXAM, GENERAL - Physical Exam Exam: See Below (See dictation) Course - Vital Signs Last Recorded V/S: Last Vital Signs Temp 36.3 C 04/27/17 13:44 Pulse 75 04/27/17 13:44 Resp 16 04/27/17 13:44 BP 117/66 04/27/17 13:44 Pulse Ox 97 04/27/17 13:44 - Orders/Labs/Meds Labs: Laboratory Tests 04/27/17 04/27/17 04/27/17 Range/Units 14:35 14:35 14:35 WBC 5.61 (4.0-11.0) K/uL RBC 4.46 (4.30-5.90) M/uL Hgb 14.3 (12.0-16.0) g/dL Hct 40.2 (36.0-46.0) % MCV 90.1 (80.0-98.0) fL MCH 32.1 H (27.0-32.0) pg MCHC 35.6 (31.0-37.0) g/dL RDW Std Deviation 54.5 (28.0-62.0) fl RDW Coeff of Tracey 18 H (11.0-15.0) % Plt Count 77 L (150-400) K/uL MPV 9.90 (7.40-12.00) fL Neut % (Auto) 49.9 (48.0-80.0) % Lymph % (Auto) 33.9 (16.0-40.0) % Toole % (Auto) 13.7 (0.0-15.0) % Eos % (Auto) 2.1 (0.0-7.0) % Baso % (Auto) 0.4 (0.0-1.5) % Neut # (Auto) 2.8 (1.4-5.7) K/uL Lymph # (Auto) 1.9 (0.6-2.4) K/uL Toole # (Auto) 0.8 (0.0-0.8) K/uL Eos # (Auto) 0.1 (0.0-0.7) K/uL Baso # (Auto) 0.0 (0.0-0.1) K/uL Nucleated RBC % 0.0 /100WBC Nucleated RBCs # 0 K/uL INR 1.38 H (0.86-1.11) Sodium 136 (136-146) mmol/L Potassium 2.5 L (3.5-5.1) mmol/L Chloride 98 (98-110) mmol/L Carbon Dioxide 28 (21-31) mmol/L BUN 7 (6.0-23.0) mg/dL Creatinine 0.8 (0.6-1.5) mg/dL Est Cr Clr Drug Dosing 60.92 mL/min Estimated GFR (MDRD) > 60.0 ml/min Glucose 149 H (60-110) mg/dL Calcium 8.5 L (8.8-10.8) mg/dL Magnesium (1.5-2.3) mEq/L Total Bilirubin 2.2 H (0.1-1.5) mg/dL AST 45 H (5-40) IU/L ALT 35 (8-54) IU/L Alkaline Phosphatase 190 H (40-150) Total Protein 6.3 (6.0-8.0) g/dL Albumin 2.8 L (3.5-5.0) g/dL Globulin 3.5 (2.0-3.5) g/dL Albumin/Globulin Ratio 0.8 L (1.3-2.8) 04/27/17 Range/Units 14:35 WBC (4.0-11.0) K/uL RBC (4.30-5.90) M/uL Hgb (12.0-16.0) g/dL Hct (36.0-46.0) % MCV (80.0-98.0) fL MCH (27.0-32.0) pg MCHC (31.0-37.0) g/dL RDW Std Deviation (28.0-62.0) fl RDW Coeff of Tracey (11.0-15.0) % Plt Count (150-400) K/uL MPV (7.40-12.00) fL Neut % (Auto) (48.0-80.0) % Lymph % (Auto) (16.0-40.0) % Toole % (Auto) (0.0-15.0) % Eos % (Auto) (0.0-7.0) % Baso % (Auto) (0.0-1.5) % Neut # (Auto) (1.4-5.7) K/uL Lymph # (Auto) (0.6-2.4) K/uL Toole # (Auto) (0.0-0.8) K/uL Eos # (Auto) (0.0-0.7) K/uL Baso # (Auto) (0.0-0.1) K/uL Nucleated RBC % /100WBC Nucleated RBCs # K/uL INR (0.86-1.11) Sodium (136-146) mmol/L Potassium (3.5-5.1) mmol/L Chloride (98-110) mmol/L Carbon Dioxide (21-31) mmol/L BUN (6.0-23.0) mg/dL Creatinine (0.6-1.5) mg/dL Est Cr Clr Drug Dosing mL/min Estimated GFR (MDRD) ml/min Glucose (60-110) mg/dL Calcium (8.8-10.8) mg/dL Magnesium 1.1 L (1.5-2.3) mEq/L Total Bilirubin (0.1-1.5) mg/dL AST (5-40) IU/L ALT (8-54) IU/L Alkaline Phosphatase (40-150) Total Protein (6.0-8.0) g/dL Albumin (3.5-5.0) g/dL Globulin (2.0-3.5) g/dL Albumin/Globulin Ratio (1.3-2.8) Meds: Medications Discontinued Medications Generic Name Dose Route Start Last Admin Trade Name Oziel PRN Reason Stop Dose Admin Hydromorphone HCl 1 mg 04/27/17 14:02 04/27/17 14:17 Dilaudid IM 04/27/17 14:03 1 mg ONETIME ONE Administration Magnesium Oxide 400 mg 04/27/17 16:21 Magnesium Oxide PO 04/27/17 16:22 ONETIME ONE Potassium Chloride 40 meq 04/27/17 16:00 04/27/17 16:08 Klor-Con M20 PO 04/27/17 16:01 40 meq ONETIME ONE Administration Departure - Departure Time of Disposition: 16:28 Disposition: Home, Self-Care 01 Condition: Good Clinical Impression: Hypokalemia, Hypomagnesemia Abdominal pain Qualifiers: Abdominal location: upper abdomen, unspecified Qualified Code(s): R10.10 - Upper abdominal pain, unspecified - Discharge Information Referrals: PCP,None [Primary Care Provider] - Forms: ED Department Discharge Additional Instructions: The following information is given to patients seen in the emergency department who are being discharged to home. This information is to outline your options for follow-up care. We provide all patients seen in our emergency department with a follow-up referral. The need for follow-up, as well as the timing and circumstances, are variable depending upon the specifics of your emergency department visit. If you don't have a primary care physician on staff, we will provide you with a referral. We always advise you to contact your personal physician following an emergency department visit to inform them of the circumstance of the visit and for follow-up with them and/or the need for any referrals to a consulting specialist. The emergency department will also refer you to a specialist when appropriate. This referral assures that you have the opportunity for followup care with a specialist. All of these measure are taken in an effort to provide you with optimal care, which includes your followup. Under all circumstances we always encourage you to contact your private physician who remains a resource for coordinating your care. When calling for followup care, please make the office aware that this follow-up is from your recent emergency room visit. If for any reason you are refused follow-up, please contact the [facility] emergency department at and ask to speak to the emergency department charge nurse. [facility] Primary care- [place] [address] Please keep your appointment tomorrow as scheduled with your rail switch operator in [place]. Please discuss with them all of the medications you're taking and please have them recheck your potassium and magnesium levels as we discussed. All the prescriptions I am giving you today to supplement your potassium and magnesium. Take all other prescribed medications as before. Return to ER as needed and as discussed.
[2017-04-27 15:22] LABS: CHLORIDE,CL 98 mmol/L (98-110); SODIUM,NA 136 mmol/L (136-146)
[2017-04-27] MEDS ORDERED: Potassium Chloride 20 MEQ Tab.ER PO ONE (16:00)
--- NOTE | 2017-04-27 16:05 | CT ---
EXAMINATION: Non contrast CT head. Coronal and sagittal reformats. HISTORY: Pain FINDINGS: No evidence of intra or extra axial hemorrhage, mass, midline shift, hydrocephalus or edema. No hypoattenuation changes in the major vascular territories to suggest acute infarct. No abnormal intracranial calcifications are detected. No evidence of substantial vascular calcificat ions. Paranasal sinuses and mastoid air cells are well aerated without substantial findings. The orbits an d globes are symmetric. Pituitary fossa appears unremarkable. Calvarium is intact. No evidence of skull fracture. IMPRESSION: No acute intracranial findings.
[2017-04-27] MEDS ORDERED: Magnesium Oxide 400 MG Tab PO ONE (16:21)
[2017-04-27 16:37] VITALS: BP 124/70
== END 2017-04-27 16:37 | disposition home or self-care (01) ==
LOC: MW.ED 13:28
DX: R10.12 Left upper quadrant pain (principal); G89.29 Other chronic pain; E83.42 Hypomagnesemia; E87.6 Hypokalemia; F41.9 Anxiety disorder, unspecified; Z98.890 Other specified postprocedural states; F17.210 Nicotine dependence, cigarettes, uncomplicated; Z79.899 Other long term (current) drug therapy
CPT/HCPCS: 36415; 70450; 80053; 83735; 85025; 85610; 96372; 99284; A9270; J1170; 99283

== ENCOUNTER 2017-07-04 15:42 | Inpatient (IN) | payer MEDICARE ==
[2017-07-04] MEDS ORDERED: Albuterol/Ipratropium 3.0-0.5 MG/3 ML Neb Soln NEB ONE (16:04)
--- NOTE | 2017-07-04 16:11 | EDM.PDOC ---
ED HPI GENERAL MEDICAL PROBLEM - General Chief Complaint: General Stated Complaint: FLUID IN STOMACH/CHEST /TROBULE BREATHING Time Seen by Provider: 07/04/17 16:11 Source of Information: Reports: Patient - History of Present Illness INITIAL COMMENTS - FREE TEXT/NARRATIVE: HISTORY AND PHYSICAL: History of present illness: [Patient presents with known history of liver cirrhosis she has had ascites in the past which is required to be tapped within the last couple of weeks which was performed in [place]. Today she presents with shortness of breath and discomfort in both abdomen and chest, she had a previous imaging with prominent appendix we repeated CT today appendix is stable at 7 mm does not appear to be an acute finding. She does have a large pleural effusion on the right No fever nausea vomiting chills sweats no headache dizziness or palpitation ] Review of systems: As per history of present illness and below otherwise all systems reviewed and negative. Past medical history: As per history of present illness and as reviewed below otherwise noncontributory. Surgical history: As per history of present illness and as reviewed below otherwise noncontributory. Social history: No reported history of drug or alcohol abuse. Family history: As per history of present illness and as reviewed below otherwise noncontributory. Physical exam: HEENT: Atraumatic, normocephalic, pupils reactive, negative for conjunctival pallor or scleral icterus, mucous membranes moist, throat clear, neck supple, nontender, trachea midline. Lungs: Clear to auscultation, breath sounds decreased on the right clear on the left, chest nontender. Heart: S1S2, regular, negative for clicks, rubs, or JVD. Abdomen: Soft, nondistended, diffusely tender mild guarding no rebound slight fluid wave noted no large ascites clinically Negative for masses or hepatosplenomegaly. Negative for costovertebral tenderness. Pelvis: Stable nontender. Genitourinary: Deferred. Rectal: Deferred. Extremities: Atraumatic, negative for cords or calf pain. Neurovascular unremarkable. Neuro: Awake, alert, oriented. Cranial nerves II through XII unremarkable. Cerebellum unremarkable. Motor and sensory unremarkable throughout. Exam nonfocal. Diagnostics: []Lab as below CT abdomen pelvis with contrast Chest 1 view patient refused Therapeutics: []Patient admitted for observation and therapeutic tap and lab of her pleural effusion Morphine 2 mg IV Impression: []History of cirrhosis Abdominal pain Right pleural effusion Definitive disposition and diagnosis as appropriate pending reevaluation and review of above. Abdominal Pain Score (Numeric/FACES): 5 - Related Data Allergies Allergy/AdvReac Type Severity Reaction Status Date / Time No Known Allergies Allergy Verified 07/04/17 15:55 Home Meds: Home Meds Zolpidem [Ambien] 10 mg PO BEDTIME PRN 04/20/17 [History] traMADol [Ultram] 100 mg PO TID PRN 04/21/17 [History] Furosemide [Lasix] 20 mg PO DAILY 04/27/17 [History] Spironolactone [Aldactone] 25 mg PO DAILY 04/27/17 [History] Lactulose [Kristalose] 20 gm PO DAILY 07/04/17 [History] Pantoprazole Sodium [Protonix] 40 mg PO DAILY 07/04/17 [History] Propranolol [Inderal] 10 mg PO BID 07/04/17 [History] Past Medical History - Past Health History Medical/Surgical History: Denies Medical/Surgical History HEENT 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: Other (See Below) Other HEENT History: Dry eyes syndrome, wears reading eyeglasses Cardiovascular 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: None Respiratory 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: None Gastrointestinal 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: Cirrhosis, Hepatitis, Other (See Below) Other Gastrointestinal History: esophageal varicies Genitourinary 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: Other (See Below) Other Genitourinary History: had UTI when she was a teenager 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 , Neurological 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: Other (See Below) Other Neuro History: Started to have a bad headache recently Psychiatric 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: Anxiety Endocrine/Metabolic 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: None Hematologic 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: None Immunologic 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: None Oncologic (Cancer) 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: None Dermatologic 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: Other (See Below) Other Dermatologic History: dry skin - Infectious Disease History Infectious Disease 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: Hepatitis C - Past Surgical History Head Surgeries/Procedures: Reports: None HEENT Surgical 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: None GI Surgical 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: Colonoscopy, EGD, Esophageal Dilatation Musculoskeletal Surgical 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: None Social & Family History - Family History Family Medical History: Noncontributory - Tobacco Use Smoking Status *Q: Current Every Day Smoker Years of Tobacco use: 5 Packs/Tins Daily: 0.1 Used Tobacco, but Quit: No Second Hand Smoke Exposure: Yes - Caffeine Use Caffeine Use: Reports: None Caffeine Use Comment: 1 cup every other day - Recreational Drug Use Recreational Drug Use: No ED ROS GENERAL - Review of Systems Review Of Systems: ROS reveals no pertinent complaints other than HPI. ED EXAM, GENERAL - Physical Exam Exam: See Below Course - Vital Signs Last Recorded V/S: Last Vital Signs Temp 97.1 F 07/04/17 16:03 Pulse 97 07/04/17 16:03 Resp 18 07/04/17 16:03 BP 106/71 07/04/17 16:03 Pulse Ox 97 07/04/17 16:03 - Orders/Labs/Meds Orders: Active Orders 24 hr Category Date Time Status EKG Documentation Completion [RC] STAT Care 07/04/17 16:04 Active RT Aerosol Therapy [RC] ASDIRECTED Care 07/04/17 16:05 Active Abdomen Pelvis w Cont [CT] Stat Exams 07/04/17 16:14 Taken Chest 1V Frontal [CR] Stat Exams 07/04/17 16:04 Taken Chest w Cont [CT] Stat Exams 07/04/17 Taken Morphine Med 07/04/17 18:53 Once 2 mg IV ONETIME ONE Sodium Chloride 0.9% [Normal Saline] 1,000 ml Med 07/04/17 16:15 Active IV STAT Medication Orders Sodium Chloride (Normal Saline) 1,000 mls @ 30 mls/hr IV STAT GER Last Admin: 07/04/17 16:32 Dose: 30 mls/hr Labs: Laboratory Tests 07/04/17 07/04/17 07/04/17 Range/Units 16:13 16:13 16:13 WBC 5.68 (4.0-11.0) K/uL RBC 4.08 L (4.30-5.90) M/uL Hgb 13.7 (12.0-16.0) g/dL Hct 40.7 (36.0-46.0) % MCV 99.8 H (80.0-98.0) fL MCH 33.6 H (27.0-32.0) pg MCHC 33.7 (31.0-37.0) g/dL RDW Std Deviation 66.7 H (28.0-62.0) fl RDW Coeff of Tracey 18 H (11.0-15.0) % Plt Count 82 L (150-400) K/uL MPV 10.60 (7.40-12.00) fL Neut % (Auto) 54.6 (48.0-80.0) % Lymph % (Auto) 34.3 (16.0-40.0) % [place] % (Auto) 9.7 (0.0-15.0) % Eos % (Auto) 1.2 (0.0-7.0) % Baso % (Auto) 0.2 (0.0-1.5) % Neut # (Auto) 3.1 (1.4-5.7) K/uL Lymph # (Auto) 2.0 (0.6-2.4) K/uL [place] # (Auto) 0.6 (0.0-0.8) K/uL Eos # (Auto) 0.1 (0.0-0.7) K/uL Baso # (Auto) 0.0 (0.0-0.1) K/uL Nucleated RBC % 0.0 /100WBC Nucleated RBCs # 0 K/uL Sodium 138 (136-146) mmol/L Potassium 4.0 (3.5-5.1) mmol/L Chloride 111 H (98-110) mmol/L Carbon Dioxide 23 (21-31) mmol/L BUN 10 (6.0-23.0) mg/dL Creatinine 0.6 (0.6-1.5) mg/dL Est Cr Clr Drug Dosing 84.43 mL/min Estimated GFR (MDRD) > 60.0 ml/min Glucose 117 H (60-110) mg/dL Calcium 8.0 L (8.8-10.8) mg/dL Total Bilirubin 2.7 H (0.1-1.5) mg/dL AST 42 H (5-40) IU/L ALT 26 (8-54) IU/L Alkaline Phosphatase 155 H (40-150) Ammonia 119 H (14-68) UG/DL Troponin I < 0.10 (0.0-0.29) NG/ML Total Protein 6.2 (6.0-8.0) g/dL Albumin 2.2 L (3.5-5.0) g/dL Globulin 4.0 H (2.0-3.5) g/dL Albumin/Globulin Ratio 0.6 L (1.3-2.8) Urine Color Urine Appearance Urine pH (5.0-8.0) Ur Specific [place] (1.001-1.035) Urine Protein (NEGATIVE) mg/dL Urine Glucose (UA) (NEGATIVE) mg/dL Urine Ketones (NEGATIVE) mg/dL Urine Occult Blood (NEGATIVE) Urine Nitrite (NEGATIVE) Urine Bilirubin (NEGATIVE) Urine Urobilinogen (<2.0) EU/dL Ur Leukocyte Esterase (NEGATIVE) Urine RBC (0-2/HPF) Urine WBC (0-5/HPF) Ur Epithelial Cells (NONE-FEW) Amorphous Sediment (NEGATIVE) Urine Bacteria (NEGATIVE) 07/04/17 Range/Units 18:00 WBC (4.0-11.0) K/uL RBC (4.30-5.90) M/uL Hgb (12.0-16.0) g/dL Hct (36.0-46.0) % MCV (80.0-98.0) fL MCH (27.0-32.0) pg MCHC (31.0-37.0) g/dL RDW Std Deviation (28.0-62.0) fl RDW Coeff of Tracey (11.0-15.0) % Plt Count (150-400) K/uL MPV (7.40-12.00) fL Neut % (Auto) (48.0-80.0) % Lymph % (Auto) (16.0-40.0) % [place] % (Auto) (0.0-15.0) % Eos % (Auto) (0.0-7.0) % Baso % (Auto) (0.0-1.5) % Neut # (Auto) (1.4-5.7) K/uL Lymph # (Auto) (0.6-2.4) K/uL [place] # (Auto) (0.0-0.8) K/uL Eos # (Auto) (0.0-0.7) K/uL Baso # (Auto) (0.0-0.1) K/uL Nucleated RBC % /100WBC Nucleated RBCs # K/uL Sodium (136-146) mmol/L Potassium (3.5-5.1) mmol/L Chloride (98-110) mmol/L Carbon Dioxide (21-31) mmol/L BUN (6.0-23.0) mg/dL Creatinine (0.6-1.5) mg/dL Est Cr Clr Drug Dosing mL/min Estimated GFR (MDRD) ml/min Glucose (60-110) mg/dL Calcium (8.8-10.8) mg/dL Total Bilirubin (0.1-1.5) mg/dL AST (5-40) IU/L ALT (8-54) IU/L Alkaline Phosphatase (40-150) Ammonia (14-68) UG/DL Troponin I (0.0-0.29) NG/ML Total Protein (6.0-8.0) g/dL Albumin (3.5-5.0) g/dL Globulin (2.0-3.5) g/dL Albumin/Globulin Ratio (1.3-2.8) Urine Color YELLOW Urine Appearance CLEAR Urine pH 7.5 (5.0-8.0) Ur Specific [place] 1.010 (1.001-1.035) Urine Protein NEGATIVE (NEGATIVE) mg/dL Urine Glucose (UA) NEGATIVE (NEGATIVE) mg/dL Urine Ketones NEGATIVE (NEGATIVE) mg/dL Urine Occult Blood SMALL H (NEGATIVE) Urine Nitrite NEGATIVE (NEGATIVE) Urine Bilirubin NEGATIVE (NEGATIVE) Urine Urobilinogen 1.0 (<2.0) EU/dL Ur Leukocyte Esterase NEGATIVE (NEGATIVE) Urine RBC 1-2 (0-2/HPF) Urine WBC 0-2 (0-5/HPF) Ur Epithelial Cells FEW (NONE-FEW) Amorphous Sediment FEW (NEGATIVE) Urine Bacteria RARE (NEGATIVE) Meds: Medications Generic Name Dose Route Start Last Admin Trade Name Freq PRN Reason Stop Dose Admin Sodium Chloride 1,000 mls @ 30 mls/hr 07/04/17 16:15 07/04/17 16:32 Normal Saline IV 30 mls/hr STAT GER Administration Discontinued Medications Generic Name Dose Route Start Last Admin Trade Name Freq PRN Reason Stop Dose Admin Albuterol/Ipratropium 3 ml 07/04/17 16:04 07/04/17 16:30 Duoneb 3.0-0.5 Mg/3 Ml NEB 07/04/17 16:05 3 ml ONETIME ONE Administration Iopamidol 61 ml 07/04/17 17:39 07/04/17 17:39 Isovue Multipack-370 (76%) IVPUSH 07/04/17 17:40 61 ml ONETIME STA Administration Departure - Departure Time of Disposition: 18:56 Disposition: Refer to Observation Condition: Fair Clinical Impression: Pleural effusion, Cirrhosis Abdominal pain Qualifiers: Abdominal location: upper abdomen, unspecified Qualified Code(s): R10.10 - Upper abdominal pain, unspecified - Discharge Information Referrals: Queta Dumas MD [Primary Care Provider] - Forms: ED Department Discharge - My Orders Last 24 Hours: My Active Orders 07/04/17 Chest w Cont [CT] Stat 07/04/17 16:04 EKG Documentation Completion [RC] STAT Chest 1V Frontal [CR] Stat 07/04/17 16:05 RT Aerosol Therapy [RC] ASDIRECTED 07/04/17 16:14 Abdomen Pelvis w Cont [CT] Stat 07/04/17 16:15 Sodium Chloride 0.9% [Normal Saline] 1,000 ml IV STAT 07/04/17 18:53 Morphine 2 mg IV ONETIME ONE - Assessment/Plan Last 24 Hours: My Active Orders 07/04/17 Chest w Cont [CT] Stat 07/04/17 16:04 EKG Documentation Completion [RC] STAT Chest 1V Frontal [CR] Stat 07/04/17 16:05 RT Aerosol Therapy [RC] ASDIRECTED 07/04/17 16:14 Abdomen Pelvis w Cont [CT] Stat 07/04/17 16:15 Sodium Chloride 0.9% [Normal Saline] 1,000 ml IV STAT 07/04/17 18:53 Morphine 2 mg IV ONETIME ONE
[2017-07-04] MEDS: Sodium Chloride 0.9% 1,000 ML IV SCH (16:32)
[2017-07-04 16:54] LABS: CHLORIDE,CL 111 mmol/L (98-110); SODIUM,NA 138 mmol/L (136-146)
[2017-07-04] MEDS ORDERED: Iopamidol 755 MG/ML 500 ML Multipack Bottle IVPUSH STA (17:39)
[2017-07-04] MEDS ORDERED: Morphine 10 MG/ML Syringe IV ONE (18:53)
[2017-07-04] MEDS ORDERED: Pantoprazole 40 MG Vial IVPUSH SCH (21:00)
[2017-07-04] MEDS: Propranolol 20 MG Tab PO SCH (23:08)
[2017-07-04] MEDS: traMADol 50 MG Tab PO PRN (23:13)
[2017-07-04] MEDS: Spironolactone 25 MG Tab PO SCH (23:14)
[2017-07-04] MEDS: Furosemide 20 MG/2 ML VIAL IVPUSH SCH (23:17)
[2017-07-04] MEDS: metroNIDAZOLE/Normal Saline 500 MG in Premix Bag 1 BAG IV SCH (23:22)
[2017-07-05] MEDS ORDERED: Temazepam 15 MG Cap PO PRN (00:04)
[2017-07-05] MEDS: Morphine 2 MG/ML Syringe IVPUSH PRN ×3 (01:32→09:43)
[2017-07-05] MEDS: Sodium Chloride 0.9% 1,000 ML IV SCH (01:34)
[2017-07-05] MEDS: metroNIDAZOLE/Normal Saline 500 MG in Premix Bag 1 BAG IV SCH ×3 (05:45→21:59)
[2017-07-05 06:39] LABS: CHLORIDE,CL 112 mmol/L (98-110); SODIUM,NA 141 mmol/L (136-146)
[2017-07-05] MEDS: Pantoprazole 40 MG in Sodium Chloride 0.9% 10 ML IV SCH ×2 (09:46→21:45)
--- NOTE | 2017-07-05 09:59 | CR ---
EXAM DATE: 07/04/17 PATIENT'S AGE: 56 Patient: SAVANNAH SANTOYO Facility: [place], [place] Site . Site : 1960 Study: XRay Chest [id number]/20/2017 5:17:03 PM Ordering Physician: Doctor Coto Final Report: INDICATIONS: Dyspnea. TECHNIQUE: Chest 1 view. COMPARISON: Chest CT July 04, 2017 at 5:31 p.m.. FINDINGS: No pneumothorax. Moderate to large right pleural effusion with associated right basilar opacity is similar in appearance. Emphysema. Lungs are otherwise clear. Cardiac and mediastinal contours are within normal limits. Upper abdomen and osseous structures as image show no acute abnormality. IMPRESSION: Moderate to large right pleural effusion with associated basilar atelectasis or airspace disease. Emphysema. Dictated by Óscar Mike MD @ 07/04/2017 6:02:19 PM Dictated by: Óscar Mike MD @ 07/04/2017 18:02:43 (Electronic Signature) Report Signed by Proxy. [facility]
--- NOTE | 2017-07-05 10:01 | CT ---
EXAM DATE: 07/04/17 PATIENT'S AGE: 56 Patient: SAVANNAH SANTOYO Facility: [place], [place] Site . Site : 1960 Study: CT Abdomen/Pelvis W CONT [id number] 5:44:29 PM Ordering Physician: Jacob Garcia Final Report: INDICATION: Abdominal pain TECHNIQUE: CT Abdomen and pelvis with i.v. contrast. Coronal and sagittal reformats were obtained. CONTRAST: 61 mL Isovue 370 COMPARISON: 04/20/2017 FINDINGS: Lower chest: Discoid and segmental atelectasis is seen in the right lung base. A moderate right pleural effusion is seen. Mild centrilobular emphysema is present bilaterally. Liver: The liver has a nodular capsular contour, consistent with micronodular cirrhosis. No focal liver lesions are identified. Spleen: The spleen measures 14 cm in craniocaudal length. Pancreas: Unremarkable. Gallbladder: Unremarkable. Kidney: Excretion of contrast into the renal collecting systems and ureters are noted, which limits evaluation for the presence of stones. Adrenal: Unremarkable. GI tract: Moderate wall thickening of the gastric antrum is present. Moderate wall thickening of the cecum colon noted. The appendix is at the upper limits of normal in size, measuring 7 mm in diameter. Vascular: Unremarkable. A recannulized paraumbilical vein is present from portal hypertension. Lymph: Unremarkable. Peritoneum: Unremarkable. No pneumoperitoneum is seen. Moderate abdominal ascites is present. Pelvis: The left ovary is enlarged without interval change measuring 4.7 x 3.7 cm. Soft tissue: Unremarkable. Bones: Unremarkable for age. IMPRESSIONS: 1. Moderate wall thickening of the cecum colon noted. Given the presence of cirrhosis, this may be due to altered hemodynamics associated with portal hypertension. Clinical correlation recommended to exclude infectious colitis or inflammatory bowel disease. 2. Moderate wall thickening of the gastric antrum is present. This may be due to gastritis or peptic ulcer disease. 3. The spleen measures 14 cm in craniocaudal length. Moderate splenomegaly noted without significant interval change. With cirrhosis present, this is consistent with portal hypertension. 4. The left ovary is enlarged without interval change measuring 4.7 x 3.7 cm. This can be better characterized by outpatient pelvic ultrasound. 5. The appendix is at the upper limits of normal in size, measuring 7 mm in diameter. The stability compared to prior examination is suggestive of an ectatic normal variant. 6. A moderate right pleural effusion is present which may be due to hepatic hydrothorax. Dictated by Pollo Duong MD @ 07/04/2017 6:20:02 PM Dictated by: Pollo Duong MD @ 07/04/2017 18:20:26 (Electronic Signature) Report Signed by Proxy. [facility]
--- NOTE | 2017-07-05 10:02 | CT ---
EXAM DATE: 07/04/17 PATIENT'S AGE: 56 Patient: SAVANNAH SANTOYO Facility: [place], [place] Site . Site : 1960 Study: CT Chest W CONT [id number]/2017 5:46:12 PM Ordering Physician: Jacob Garcia Final Report: INDICATION: Chest pain with bloating. TECHNIQUE: CT chest with i.v. contrast during the venous phase. Coronal and sagittal reformats were obtained. CONTRAST: 61 mL Isovue 370 COMPARISON: 04/20/2017 FINDINGS: Cardiovascular: The heart has an unremarkable appearance and size. The pulmonary arteries are unremarkable in appearance. Ectasia of the ascending aorta is noted measuring 3.4 cm. A coronary stent is present in the proximal LAD. Mediastinum: No mass or adenopathy seen. Lungs: Compressive segmental atelectasis present in the medial basal segment of the right lower lobe and in the lateral right middle lobe. Moderate centrilobular emphysema is present bilaterally and most pronounced in the apices. Pleura and pericardium: A large right transudative effusion is present. No significant pericardial effusion is present. Chest wall and axilla: No mass or adenopathy seen. Bones: Unremarkable for age. IMPRESSIONS: 1. A large right transudative effusion is present. In the presence of cirrhosis and abdominal ascites, this is likely due to hepatic hydrothorax. 2. Ectasia of the ascending aorta is noted measuring 3.4 cm. Dictated by Pollo Duong MD @ 07/04/2017 6:25:03 PM Dictated by: Pollo Duong MD @ 07/04/2017 18:25:14 (Electronic Signature) Report Signed by Proxy. [facility]ENTER[facility]el
[2017-07-05] MEDS ORDERED: traMADol 50 MG Tab PO PRN (10:04)
[2017-07-05] MEDS ORDERED: Sodium Chloride 0.45% 1,000 ML IV SCH (13:00)
[2017-07-05] MEDS ORDERED: Sodium Chloride 0.9% 500 ML IV SCH (13:00)
--- NOTE | 2017-07-05 13:36 | PCM.HP ---
H&P History of Present Illness - General Date of Service: 07/05/17 Admit Problem/Dx: Admission Diagnosis/Problem Admission Diagnosis/Problem Pleural effusion Respiratory Distress Source of Information: Patient - History of Present Illness Initial Comments - Free Text/Narative: Patient 56 y old female with PMhx of liver cirrhosis and ascitis , S/p Rt pleural effusions drainage 2 weeks ago presented to Er due to worsening SOb for the fast few days. Patient also reports feeling dizzy and hitting her head/face on a closet, No LOC. . She had Hep. C and was treated for it. She also used to drink alcohol , but stopped 16 years ago. C/o abdominal pain that is diffuse in the abdomen , mild to moderate and muscle cramps. Denies heartburn. Onset of Symptoms: Reports: Gradual Duration of Symptoms: Reports: Day(s): Location: Reports: Chest Abdominal Pain Score (Numeric/FACES): 5 - Related Data Allergies/Adverse Reactions: Allergies Allergy/AdvReac Type Severity Reaction Status Date / Time No Known Allergies Allergy Verified 07/04/17 15:55 Home Medications: Home Meds Zolpidem [Ambien] 10 mg PO BEDTIME PRN 04/20/17 [History] traMADol [Ultram] 100 mg PO TID PRN 04/21/17 [History] Furosemide [Lasix] 20 mg PO DAILY 04/27/17 [History] Spironolactone [Aldactone] 25 mg PO DAILY 04/27/17 [History] Lactulose [Kristalose] 20 gm PO DAILY 07/04/17 [History] Pantoprazole Sodium [Protonix] 40 mg PO DAILY 07/04/17 [History] Propranolol [Inderal] 10 mg PO BID 07/04/17 [History] Past Medical History - Past Health History Medical/Surgical History: Denies Medical/Surgical History HEENT 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: Other (See Below) Other HEENT History: Dry eyes syndrome, wears reading eyeglasses Cardiovascular 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: None Respiratory 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: None Gastrointestinal 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: Cirrhosis, Hepatitis, Other (See Below) Other Gastrointestinal History: esophageal varicies Genitourinary 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: Other (See Below) Other Genitourinary History: had UTI when she was a teenager [employer] 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: Ectopic , Neurological 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: Other (See Below) Other Neuro History: Started to have a bad headache recently Psychiatric 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: Anxiety Endocrine/Metabolic 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: None Hematologic 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: None Immunologic 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: None Oncologic (Cancer) 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: None Dermatologic 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: Other (See Below) Other Dermatologic History: dry skin - Infectious Disease History Infectious Disease 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: Hepatitis C - Past Surgical History Head Surgeries/Procedures: Reports: None HEENT Surgical 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: None GI Surgical 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: Colonoscopy, EGD, Esophageal Dilatation Musculoskeletal Surgical 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: None Social & Family History - Family History Family Medical History: Noncontributory Neurological: Reports: Alzheimers Disease, Dementia - Tobacco Use Smoking Status *Q: Current Every Day Smoker Years of Tobacco use: 5 Packs/Tins Daily: 0.1 Used Tobacco, but Quit: No Second Hand Smoke Exposure: Yes - Caffeine Use Caffeine Use: Reports: None Caffeine Use Comment: 1 cup every other day - Recreational Drug Use Recreational Drug Use: No H&P Review of Systems - Review of Systems: Review Of Systems: See Below General: Reports: Weakness, Decreased Appetite, Weight Loss HEENT: Reports: No Symptoms Pulmonary: Reports: Shortness of Breath Cardiovascular: Reports: Dyspnea on Exertion, Lightheadedness Gastrointestinal: Reports: Abdominal Pain, Diarrhea Genitourinary: Reports: No Symptoms Musculoskeletal: Reports: Muscle Pain Skin: Reports: Jaundice, Bruising Psychiatric: Reports: No Symptoms Neurological: Reports: No Symptoms Hematologic/Lymphatic: Reports: Easy Bruising Exam - Exam Exam: See Below - Vital Signs Vital Signs: Last Vital Signs Temp 98.2 F 07/05/17 09:00 Pulse 93 07/05/17 11:55 Resp 10 L 07/05/17 11:55 BP 87/53 L 07/05/17 11:55 Pulse Ox 93 L 07/05/17 11:55 Weight: 110 lb - Exam Quality Assessment: Supplemental Oxygen General: Alert, Oriented, Cooperative HEENT: Scleral Icterus Neck: Supple, Trachea Midline Lungs: Decreased Breath Sounds (RT lung) Cardiovascular: Regular Rate, Regular Rhythm, Normal S1, Normal S2 GI/Abdominal Exam: Normal Bowel Sounds, Soft, Guarding, Tender, Splenomegaly Back Exam: Normal Inspection - Patient Data Lab Results Last 24 hrs: Laboratory Results - last 24 hr 07/05/17 07/05/17 07/05/17 Range/Units 06:04 06:04 06:04 WBC 5.72 (4.0-11.0) K/uL RBC 4.09 L (4.30-5.90) M/uL Hgb 13.7 (12.0-16.0) g/dL Hct 40.8 (36.0-46.0) % MCV 99.8 H (80.0-98.0) fL MCH 33.5 H (27.0-32.0) pg MCHC 33.6 (31.0-37.0) g/dL RDW Std Deviation 65.6 H (28.0-62.0) fl RDW Coeff of Tracey 18 H (11.0-15.0) % Plt Count 82 L (150-400) K/uL MPV 10.50 (7.40-12.00) fL Neut % (Auto) 49.2 (48.0-80.0) % Lymph % (Auto) 39.5 (16.0-40.0) % [place] % (Auto) 8.6 (0.0-15.0) % Eos % (Auto) 2.4 (0.0-7.0) % Baso % (Auto) 0.3 (0.0-1.5) % Neut # (Auto) 2.8 (1.4-5.7) K/uL Lymph # (Auto) 2.3 (0.6-2.4) K/uL [place] # (Auto) 0.5 (0.0-0.8) K/uL Eos # (Auto) 0.1 (0.0-0.7) K/uL Baso # (Auto) 0.0 (0.0-0.1) K/uL Nucleated RBC % 0.0 /100WBC Nucleated RBCs # 0 K/uL INR 1.33 H (0.86-1.11) APTT 30.1 (18.6-31.3) SEC Sodium (136-146) mmol/L Potassium (3.5-5.1) mmol/L Chloride (98-110) mmol/L Carbon Dioxide (21-31) mmol/L BUN (6.0-23.0) mg/dL Creatinine (0.6-1.5) mg/dL Est Cr Clr Drug Dosing mL/min Estimated GFR (MDRD) ml/min Glucose (60-110) mg/dL Calcium (8.8-10.8) mg/dL Total Bilirubin (0.1-1.5) mg/dL AST (5-40) IU/L ALT (8-54) IU/L Alkaline Phosphatase (40-150) Ammonia 94 H (14-68) UG/DL Total Protein (6.0-8.0) g/dL Albumin (3.5-5.0) g/dL Globulin (2.0-3.5) g/dL Albumin/Globulin Ratio (1.3-2.8) 07/05/17 Range/Units 06:04 WBC (4.0-11.0) K/uL RBC (4.30-5.90) M/uL Hgb (12.0-16.0) g/dL Hct (36.0-46.0) % MCV (80.0-98.0) fL MCH (27.0-32.0) pg MCHC (31.0-37.0) g/dL RDW Std Deviation (28.0-62.0) fl RDW Coeff of Tracey (11.0-15.0) % Plt Count (150-400) K/uL MPV (7.40-12.00) fL Neut % (Auto) (48.0-80.0) % Lymph % (Auto) (16.0-40.0) % [place] % (Auto) (0.0-15.0) % Eos % (Auto) (0.0-7.0) % Baso % (Auto) (0.0-1.5) % Neut # (Auto) (1.4-5.7) K/uL Lymph # (Auto) (0.6-2.4) K/uL [place] # (Auto) (0.0-0.8) K/uL Eos # (Auto) (0.0-0.7) K/uL Baso # (Auto) (0.0-0.1) K/uL Nucleated RBC % /100WBC Nucleated RBCs # K/uL INR (0.86-1.11) APTT (18.6-31.3) SEC Sodium 141 (136-146) mmol/L Potassium 4.4 (3.5-5.1) mmol/L Chloride 112 H (98-110) mmol/L Carbon Dioxide 26 (21-31) mmol/L BUN 10 (6.0-23.0) mg/dL Creatinine 0.6 (0.6-1.5) mg/dL Est Cr Clr Drug Dosing 84.43 mL/min Estimated GFR (MDRD) > 60.0 ml/min Glucose 93 (60-110) mg/dL Calcium 8.0 L (8.8-10.8) mg/dL Total Bilirubin 2.4 H (0.1-1.5) mg/dL AST 41 H (5-40) IU/L ALT 27 (8-54) IU/L Alkaline Phosphatase 158 H (40-150) Ammonia (14-68) UG/DL Total Protein 6.2 (6.0-8.0) g/dL Albumin 2.3 L (3.5-5.0) g/dL Globulin 3.9 H (2.0-3.5) g/dL Albumin/Globulin Ratio 0.6 L (1.3-2.8) Result Diagrams: 07/05/17 06:04 07/05/17 06:04 EKG INTERPRETATION EKG Date: 07/05/17 Rhythm: NSR *Q Meaningful Use (ADM) - VTE *Q VTE Criteria *Q: - Stroke *Q Stroke Criteria *Q: - AMI *Q AMI Criteria *Q: - Problem List (1) Abdominal pain SNOMED Code(s): 67946464 ICD Code: R10.9 - UNSPECIFIED ABDOMINAL PAIN Status: Acute Current Visit : No (2) Abdominal pain SNOMED Code(s): 28768155 ICD Code: R10.9 - UNSPECIFIED ABDOMINAL PAIN Status: Acute Current Visit : Yes Qualifiers: Abdominal location: upper abdomen, unspecified Qualified Code(s): R10.10 - Upper abdominal pain, unspecified (3) Cirrhosis SNOMED Code(s): 99365436 ICD Code: K74.60 - UNSPECIFIED CIRRHOSIS OF LIVER Status: Acute Current Visit: Yes (4) Pleural effusion SNOMED Code(s): 91861071 ICD Code: J90 - PLEURAL EFFUSION, NOT ELSEWHERE CLASSIFIED Status: Acute Current Visit: Yes (5) Ascites SNOMED Code(s): 316332743 ICD Code: R18.8 - OTHER ASCITES Status: Acute Current Visit: No (6) Colitis SNOMED Code(s): 27077066 ICD Code: K52.9 - NONINFECTIVE GASTROENTERITIS AND COLITIS, UNSPECIFIED Status: Acute Current Visit: No (7) Hyperammonemia SNOMED Code(s): 0757893 ICD Code: E72.20 - DISORDER OF UREA CYCLE METABOLISM, UNSPECIFIED Status: Acute Current Visit: Yes (8) Liver failure without hepatic coma SNOMED Code(s): 93176452 ICD Code: K72.90 - HEPATIC FAILURE, UNSPECIFIED WITHOUT COMA Status: Acute Current Visit: Yes Qualifiers: Liver failure chronicity: unspecified chronicity Qualified Code(s): K72.90 - Hepatic failure, unspecified without coma Problem List Initiated/Reviewed/Updated: Yes Orders Last 24hrs: Active Orders 24 hr Category Date Time Status Admission Status [Patient Status] [ADT] Routine ADT 07/05/17 10:02 Active Activity as Tolerated [RC] .Routine Care 07/04/17 21:41 Active Telemetry Monitoring [Cardiac Monitoring] [RC] . Care 07/05/17 10:01 Active DIRECTED Clear Liquid Diet [DIET] Diet 07/05/17 Breakfast Active Thoracentesis W/ US Guide [US] Urgent Exams 07/05/17 10:05 Ordered CULTURE STOOL + CAMPY+SHIGATOX [RM] Routine Lab 07/04/17 22:13 Uncollected Furosemide [Lasix] Med 07/04/17 22:00 Active 20 mg IVPUSH Q12H Lactulose [Chronulac] Med 07/05/17 09:00 Active 20 gm PO DAILY Morphine Med 07/05/17 01:14 Active 2 mg IVPUSH Q2H PRN Neomycin [Neomycin Sulfate] Med 07/05/17 14:00 Active 4,000 mg PO TID Pantoprazole [ProTONIX IV] 40 mg Med 07/05/17 09:00 Active Sodium Chloride 0.9% [Normal Saline] 10 ml IV Q12HR Propranolol [Inderal] Med 07/05/17 21:00 Active 10 mg PO BID Sodium Chloride 0.45% 1,000 ml Med 07/05/17 13:00 Active IV ASDIRECTED Sodium Chloride 0.9% [Normal Saline] 500 ml Med 07/05/17 13:00 Active IV .BOLUS Spironolactone [Aldactone] Med 07/04/17 22:00 Active 25 mg PO BID Temazepam [Restoril] Med 07/05/17 00:04 Active 15 mg PO BEDTIME PRN Zaleplon [Sonata] Med 07/05/17 10:04 Active 10 mg PO BEDTIME PRN metroNIDAZOLE/Normal Saline [Flagyl 500 MG in NS 100 ML Med 07/04/17 22:00 Active ] 500 mg Premix Bag 1 bag IV Q8H traMADol [Ultram] Med 07/05/17 10:04 Active 100 mg PO TID PRN traMADol [Ultram] Med 07/04/17 21:52 Active 50 mg PO Q6H PRN Medication Orders Furosemide (Lasix) 20 mg IVPUSH Q12H [facility] Last Admin: 07/04/17 23:17 Dose: 20 mg Sodium Chloride (Normal Saline) 1,000 mls @ 30 mls/hr IV STAT [facility] Last Admin: 07/05/17 01:34 Dose: 30 mls/hr Infusion: 07/05/17 01:34 Dose: 30 mls/hr Admin: 07/04/17 16:32 Dose: 30 mls/hr Metronidazole 500 mg/ Premix 100 mls @ 100 mls/hr IV Q8H [facility] Last Admin: 07/05/17 05:45 Dose: 100 mls/hr Infusion: 07/05/17 00:22 Dose: 100 mls/hr Admin: 07/04/17 23:22 Dose: 100 mls/hr Pantoprazole Sodium 40 mg/ (Sodium Chloride) 10 mls @ 200 mls/hr IV Q12HR [facility] Last Admin: 07/05/17 09:46 Dose: 200 mls/hr Sodium Chloride (Sodium Chloride 0.45%) 1,000 mls @ 75 mls/hr IV ASDIRECTED [facility] Sodium Chloride (Normal Saline) 500 mls @ 999 mls/hr IV .BOLUS [facility] Lactulose (Chronulac) 20 gm PO DAILY [facility] Morphine Sulfate (Morphine) 2 mg IVPUSH Q2H PRN PRN Reason: Abdominal Pain Last Admin: 07/05/17 09:43 Dose: 2 mg Admin: 07/05/17 05:53 Dose: 2 mg Admin: 07/05/17 01:32 Dose: 2 mg Neomycin Sulfate (Neomycin Sulfate) 4,000 mg PO TID [facility] Propranolol HCl (Inderal) 10 mg PO BID [facility] Spironolactone (Aldactone) 25 mg PO BID [facility] Last Admin: 07/04/17 23:14 Dose: 25 mg Temazepam (Restoril) 15 mg PO BEDTIME PRN PRN Reason: sleep Last Admin: 07/05/17 00:22 Dose: 15 mg Tramadol HCl (Ultram) 50 mg PO Q6H PRN PRN Reason: Pain Last Admin: 07/04/17 23:13 Dose: 50 mg Tramadol HCl (Ultram) 100 mg PO TID PRN PRN Reason: Pain Zaleplon (Sonata) 10 mg PO BEDTIME PRN PRN Reason: Insomnia Assessment/Plan Comment:: Ct abdomen: splenomegaly , portal hypertension, antral gastritis possible ulcer , possible colitis, liver cirrhosis, right hydrothorax,mild ascitis , mild pericardial effusions A/P Sob secondary to Rt pl. effusions- will admit patient to med surge- patient will be started on lasix 20 mg iv q 12h , spironolactone 25 mg iv q 12h , monitor electrolytes , supplement K, IR consult for thoracentesis. At admission the blood pressure systolic was 105. Abdominal pain, gastritis, possible colitis:will start patient on Flagyl 500 mg iv q 8 h , stool culture , stool for ova and parasites, protonix 40 mg iv q 12h Hyperammoniemia- continue lactulose 20 mg po daily , start neomycin 4000 mg po TID Thrombocytopenia- secondary to splenomegaly , secondary to cirrhosis , monitor platelets. Weight loss, decreased appetite- remeron 15 mg po qhs Hepatic failure- monitor ammonia level , Bilirubin , INR , platelets, f/up with GI Esophageal varices: cont with propranolol 10 mg po BID, hold for sb ledd than 90 , HR less than 60
[2017-07-05] MEDS: Lactulose Soln 10 GM/15 ML 15 ML UD Cup PO SCH (14:00)
[2017-07-05] MEDS: Furosemide 20 MG/2 ML VIAL IVPUSH SCH ×2 (14:00→21:45)
[2017-07-05] MEDS: Spironolactone 25 MG Tab PO SCH ×2 (14:00→21:43)
[2017-07-05] MEDS ORDERED: Lactulose Soln 10 GM/15 ML 15 ML UD Cup PO ONE (16:00)
--- NOTE | 2017-07-05 17:17 | US ---
EXAMINATION: Ultrasound guided right thoracentesis. HISTORY: Right pleural effusion. Technique/findings: The procedure, benefits and risks were discussed with the patient. Following wr itten informed consent was obtained from the patient, under ultrasound guidance and utilizing 1% lido jane as local anesthesia the right pleural effusion was accessed using a 5 Turkish one-step needle. Following access the catheter was placed into the effusion, 1200 cc of pleural effusion was drained. US images demonstrate a trace residual pleural effusion post thoracentesis. The patient tolerated th e procedure well. No immediate complications. IMPRESSION: Successful ultrasound guided right thoracentesis. Fluid was straw-colored.
[2017-07-05] MEDS: Propranolol 20 MG Tab PO SCH ×2 (21:43→23:40)
[2017-07-05] MEDS: Mirtazapine 15 MG Tab PO SCH ×2 (21:43→21:47)
[2017-07-05] MEDS: traMADol 50 MG Tab PO PRN (22:43)
[2017-07-06] MEDS: Temazepam 15 MG Cap PO PRN ×2 (00:34→22:03)
[2017-07-06] MEDS: traMADol 50 MG Tab PO PRN ×2 (04:54→09:56)
[2017-07-06] MEDS: metroNIDAZOLE/Normal Saline 500 MG in Premix Bag 1 BAG IV SCH ×2 (05:02→21:16)
[2017-07-06 07:46] LABS: CHLORIDE,CL 109 mmol/L (98-110); SODIUM,NA 137 mmol/L (136-146)
[2017-07-06] MEDS ORDERED: Albumin 25% 12.5 GM/50 ML BAG IV ONE ×2 (08:50→08:51)
[2017-07-06] MEDS: Pantoprazole 40 MG Vial IVPUSH SCH ×2 (09:43→21:10)
[2017-07-06] MEDS: Propranolol 20 MG Tab PO SCH ×2 (09:47→21:20)
[2017-07-06] MEDS: Spironolactone 25 MG Tab PO SCH ×2 (09:47→21:21)
[2017-07-06] MEDS: Lactulose Soln 10 GM/15 ML 15 ML UD Cup PO SCH (09:47)
[2017-07-06] MEDS: Furosemide 20 MG/2 ML VIAL IVPUSH SCH ×2 (11:45→21:07)
[2017-07-06] MEDS: Ciprofloxacin in D5W 400 MG in Premix Bag 1 BAG IV SCH ×2 (15:24)
--- NOTE | 2017-07-06 15:58 | PCM.PN ---
- General Info Date of Service: 07/06/17 Admission Dx/Problem (Free Text): Patient c/o abd pain and she is continuously requeting pain medication. She says she has abdominal pain for 2 months and does not take anything home for pain . Her BM were formed today , pasty. Abdominal paracentesis could not be done due to low volume ascitis. Pain Score: 5 - Review of Systems General: Reports: Weakness, Other HEENT: Reports: No Symptoms Pulmonary: Reports: No Symptoms Cardiovascular: Reports: No Symptoms Gastrointestinal: Reports: Abdominal Pain Genitourinary: Reports: No Symptoms Musculoskeletal: Reports: No Symptoms Skin: Reports: Jaundice Neurological: Reports: Weakness - Patient Data Vitals - Most Recent: Last Vital Signs Temp 98.5 F 07/06/17 08:00 Pulse 58 L 07/06/17 08:00 Resp 12 07/06/17 08:00 BP 98/49 L 07/06/17 08:00 Pulse Ox 90 L 07/06/17 08:00 Weight - Most Recent: 110 lb Lab Results Last 24 Hours: Laboratory Results - last 24 hr 07/06/17 07/06/17 07/06/17 Range/Units 07:06 07:06 07:06 WBC 3.77 L (4.0-11.0) K/uL RBC 3.76 L (4.30-5.90) M/uL Hgb 12.7 (12.0-16.0) g/dL Hct 37.1 (36.0-46.0) % MCV 98.7 H (80.0-98.0) fL MCH 33.8 H (27.0-32.0) pg MCHC 34.2 (31.0-37.0) g/dL RDW Std Deviation 63.2 H (28.0-62.0) fl RDW Coeff of Tracey 18 H (11.0-15.0) % Plt Count 88 L (150-400) K/uL MPV 10.10 (7.40-12.00) fL Nucleated RBC % 0.0 /100WBC Nucleated RBCs # 0 K/uL Sodium 137 (136-146) mmol/L Potassium 3.8 (3.5-5.1) mmol/L Chloride 109 (98-110) mmol/L Carbon Dioxide 24 (21-31) mmol/L BUN 8 (6.0-23.0) mg/dL Creatinine 0.6 (0.6-1.5) mg/dL Est Cr Clr Drug Dosing 84.43 mL/min Estimated GFR (MDRD) > 60.0 ml/min Glucose 89 (60-110) mg/dL Calcium 7.5 L (8.8-10.8) mg/dL Total Bilirubin 2.4 H (0.1-1.5) mg/dL AST 39 (5-40) IU/L ALT 24 (8-54) IU/L Alkaline Phosphatase 113 (40-150) Ammonia 94 H (14-68) UG/DL Total Protein 5.4 L (6.0-8.0) g/dL Albumin 1.9 L (3.5-5.0) g/dL Globulin 3.5 (2.0-3.5) g/dL Albumin/Globulin Ratio 0.5 L (1.3-2.8) [place] Results Last 24 Hours: Microbiology 07/06/17 12:50 Campylobacter Antigen Assay - Final Stool / Feces NEGATIVE [facility] Med Orders - Current: Current Medications Furosemide (Lasix) 20 mg IVPUSH Q12H [facility] [place] Last Admin: 07/06/17 11:45 Dose: 20 mg Sodium Chloride (Normal Saline) 1,000 mls @ 30 mls/hr IV STAT [facility] [place] Last Admin: 07/05/17 01:34 Dose: 30 mls/hr Sodium Chloride (Normal Saline) 500 mls @ 999 mls/hr IV .BOLUS [facility] [place] Last Admin: 07/05/17 13:00 Dose: 999 mls/hr Metronidazole 500 mg/ Premix 100 mls @ 100 mls/hr IV BID [facility]ER Ciprofloxacin/Dextrose 400 mg/ (Premix) 200 mls @ 200 mls/hr IV Q12H [facility] [place] Last Admin: 07/06/17 15:24 Dose: 200 mls/hr Lactulose (Chronulac) 20 gm PO DAILY [facility] [place] Last Admin: 07/06/17 09:47 Dose: 20 gm Mirtazapine (Remeron) 15 mg PO BEDTIME [facility] [place] Last Admin: 07/05/17 21:47 Dose: Not Given Morphine Sulfate (Morphine) 2 mg IVPUSH Q3H PRN PRN Reason: Pain Neomycin Sulfate (Neomycin Sulfate) 4,000 mg PO TID [facility] [place] Last Admin: 07/06/17 14:52 Dose: 4,000 mg Pantoprazole Sodium (Protonix Iv) 40 mg IVPUSH Q12HR [facility] [place] Last Admin: 07/06/17 09:43 Dose: 40 mg Propranolol HCl (Inderal) 10 mg PO BID [facility] [place] Last Admin: 07/06/17 09:47 Dose: 10 mg Spironolactone (Aldactone) 25 mg PO BID [facility] [place] Last Admin: 07/06/17 09:47 Dose: 25 mg Temazepam (Restoril) 15 mg PO BEDTIME PRN PRN Reason: Insomnia Last Admin: 07/06/17 00:34 Dose: 15 mg Tramadol HCl (Ultram) 50 mg PO Q12H PRN PRN Reason: Pain Last Admin: 07/06/17 09:56 Dose: 50 mg Discontinued Medications Albuterol/Ipratropium (Duoneb 3.0-0.5 Mg/3 Ml) 3 ml NEB ONETIME ONE Stop: 07/04/17 16:05 Last Admin: 07/04/17 16:30 Dose: 3 ml Eszopiclone (Lunesta) 1 mg PO BEDTIME PRN PRN Reason: sleep Eszopiclone (Lunesta) 0.5 mg PO BEDTIME PRN PRN Reason: Insomnia Metronidazole 500 mg/ Premix 100 mls @ 100 mls/hr IV Q8H [facility] [place] Last Admin: 07/06/17 05:02 Dose: 100 mls/hr Pantoprazole Sodium 40 mg/ (Sodium Chloride) 10 mls @ 200 mls/hr IV Q12HR [facility] [place] Last Admin: 07/05/17 21:45 Dose: 200 mls/hr Sodium Chloride (Sodium Chloride 0.45%) 1,000 mls @ 75 mls/hr IV ASDIRECTED [facility] [place] Last Admin: 07/05/17 15:33 Dose: 75 mls/hr Albumin Human (Flexbumin 25%) 12.5 gm in 50 mls @ 100 mls/hr IV ONETIME ONE Stop: 07/06/17 09:19 Last Admin: 07/06/17 09:50 Dose: 100 mls/hr Albumin Human (Flexbumin 25%) 12.5 gm in 50 mls @ 100 mls/hr IV ONETIME ONE Stop: 07/06/17 09:20 Last Admin: 07/06/17 10:33 Dose: 100 mls/hr Iopamidol (Isovue Multipack-370 (76%)) 61 ml IVPUSH ONETIME STA Stop: 07/04/17 17:40 Last Admin: 07/04/17 17:39 Dose: 61 ml Lactulose (Chronulac) 20 gm PO ONETIME ONE Stop: 07/05/17 16:01 Last Admin: 07/05/17 16:22 Dose: 20 gm Morphine Sulfate (Morphine) 2 mg IV ONETIME ONE Stop: 07/04/17 18:54 Last Admin: 07/04/17 19:00 Dose: 2 mg Morphine Sulfate (Morphine) 2 mg IVPUSH Q2H PRN PRN Reason: Abdominal Pain Last Admin: 07/05/17 09:43 Dose: 2 mg Pantoprazole Sodium (Protonix Iv) 40 mg IVPUSH Q12H [facility] [place] Last Admin: 07/04/17 23:15 Dose: 40 mg Propranolol HCl (Inderal) 10 mg PO BID [facility] [place] Last Admin: 07/05/17 23:40 Dose: Not Given Temazepam (Restoril) 15 mg PO BEDTIME PRN PRN Reason: sleep Last Admin: 07/05/17 00:22 Dose: 15 mg Tramadol HCl (Ultram) 50 mg PO Q6H PRN PRN Reason: Pain Last Admin: 07/06/17 04:54 Dose: 50 mg Tramadol HCl (Ultram) 100 mg PO TID PRN PRN Reason: Pain Last Admin: 07/05/17 16:30 Dose: 100 mg Zaleplon (Sonata) 10 mg PO BEDTIME PRN PRN Reason: Insomnia - Exam General: Alert, Oriented HEENT: Pupils Equal, Pupils Reactive Neck: Supple, Trachea Midline, No JVD Lungs: Clear to Auscultation, Normal Respiratory Effort Cardiovascular: Regular Rate, Regular Rhythm, No Murmurs GI/Abdominal Exam: Normal Bowel Sounds, Tender, Splenomegaly Back Exam: Normal Inspection Extremities: Normal Inspection Skin: Warm, Dry Neurological: No New Focal Deficit Psy/Mental Status: Alert, Normal Affect - Problem List & Annotations (1) Abdominal pain SNOMED Code(s): 67560915 Code(s): R10.9 - UNSPECIFIED ABDOMINAL PAIN Status: Acute Current Visit: No (2) Abdominal pain SNOMED Code(s): 47846034 Code(s): R10.9 - UNSPECIFIED ABDOMINAL PAIN Status: Acute Current Visit: Yes Qualifiers: Abdominal location: upper abdomen, unspecified Qualified Code(s): R10.10 - Upper abdominal pain, unspecified (3) Cirrhosis SNOMED Code(s): 67510368 Code(s): K74.60 - UNSPECIFIED CIRRHOSIS OF LIVER Status: Acute Current Visit: Yes (4) Pleural effusion SNOMED Code(s): 71152135 Code(s): J90 - PLEURAL EFFUSION, NOT ELSEWHERE CLASSIFIED Status: Acute Current Visit: Yes (5) Ascites SNOMED Code(s): 382580680 Code(s): R18.8 - OTHER ASCITES Status: Acute Current Visit: No (6) Colitis SNOMED Code(s): 63492717 Code(s): K52.9 - NONINFECTIVE GASTROENTERITIS AND COLITIS, UNSPECIFIED Status: Acute Current Visit: No (7) Hyperammonemia SNOMED Code(s): 3052855 Code(s): E72.20 - DISORDER OF UREA CYCLE METABOLISM, UNSPECIFIED Status: Acute Current Visit: Yes (8) Liver failure without hepatic coma SNOMED Code(s): 95444234 Code(s): K72.90 - HEPATIC FAILURE, UNSPECIFIED WITHOUT COMA Status: Acute Current Visit: Yes Qualifiers: Liver failure chronicity: unspecified chronicity Qualified Code(s): K72.90 - Hepatic failure, unspecified without coma - Problem List Review Problem List Initiated/Reviewed/Updated: Yes - My Orders Last 24 Hours: My Active Orders 07/05/17 21:00 Mirtazapine [Remeron] 15 mg PO BEDTIME Propranolol [Inderal] 10 mg PO BID 07/05/17 Dinner Low Protein [Protein Restricted Diet] [DIET] 07/06/17 00:20 Temazepam [Restoril] 15 mg PO BEDTIME PRN 07/06/17 08:56 traMADol [Ultram] 50 mg PO Q12H PRN 07/06/17 09:00 Pantoprazole [ProTONIX IV] 40 mg IVPUSH Q12HR 07/06/17 12:50 CULTURE STOOL + CAMPY+SHIGATOX [RM] Routine 07/06/17 15:08 Morphine 2 mg IVPUSH Q3H PRN 07/06/17 15:15 Ciprofloxacin in D5W [Cipro in D5W 400 MG/200 ML] 400 mg Premix Bag 1 bag IV Q12H 07/06/17 21:00 metroNIDAZOLE/Normal Saline [Flagyl 500 MG in NS 100 ML] 500 mg Premix Bag 1 bag IV BID 07/06/17 Dinner 2 Gram Sodium Diet [DIET] 07/07/17 05:11 CBC W/O DIFF,HEMOGRAM [HEME] AM CMP [COMPREHENSIVE METABOLIC PN,CMP] [CHEM] AM 07/08/17 05:11 CBC W/O DIFF,HEMOGRAM [HEME] AM CMP [COMPREHENSIVE METABOLIC PN,CMP] [CHEM] AM 07/09/17 05:11 CBC W/O DIFF,HEMOGRAM [HEME] AM CMP [COMPREHENSIVE METABOLIC PN,CMP] [CHEM] AM 07/10/17 05:11 CBC W/O DIFF,HEMOGRAM [HEME] AM - Plan Plan:: Ct abdomen: splenomegaly , portal hypertension, antral gastritis possible ulcer , possible colitis, liver cirrhosis, right hydrothorax,mild ascitis , mild pericardial effusions A/P Sob secondary to Rt pl. effusions- s/p throracentesis rt, patient breathing improved Abdominal pain, gastritis, possible colitis : change flagyl iv to 500 mg iv q12h , add ciprofloxacin 400 mg iv q12h , stool studies protonix 40 mg iv q 12h Hyperammoniemia- the same-continue lactulose 20 mg po daily , continue neomycin 4000 mg po TID, f/up ammonia level Thrombocytopenia- stable-secondary to splenomegaly , secondary to cirrhosis , monitor platelets. Weight loss, decreased appetite- remeron 15 mg po qhs Hepatic failure- monitor ammonia level , Bilirubin , INR , platelets, f/up with GI Esophageal varices: change propranolol to nadolol , hold for systolic BP less than 90 , HR less than 60 Hypotension-will change propranolol to nadolol and d/c lasix, NS 250 cc iv bolus Hold the opioids - as patient has drug seeking behavior and she is getting hypotension with morphine and bradypneea Patient was also given 250 cc iv bolus to improve the Bp
[2017-07-06] MEDS: Sodium Chloride 0.9% 1,000 ML IV SCH (17:40)
[2017-07-06] MEDS: Morphine 2 MG/ML Syringe IVPUSH PRN ×2 (18:49→22:01)
[2017-07-06] MEDS: Mirtazapine 15 MG Tab PO SCH (21:23)
[2017-07-07] MEDS: traMADol 50 MG Tab PO PRN ×2 (01:11→15:22)
[2017-07-07] MEDS: Ciprofloxacin in D5W 400 MG in Premix Bag 1 BAG IV SCH ×4 (02:42→14:34)
[2017-07-07 06:07] LABS: CHLORIDE,CL 108 mmol/L (98-110); SODIUM,NA 136 mmol/L (136-146)
[2017-07-07] MEDS: Lactulose Soln 10 GM/15 ML 15 ML UD Cup PO SCH ×3 (09:23→15:24)
[2017-07-07] MEDS: Pantoprazole 40 MG Vial IVPUSH SCH (09:23)
[2017-07-07] MEDS: metroNIDAZOLE/Normal Saline 500 MG in Premix Bag 1 BAG IV SCH (09:25)
[2017-07-07] MEDS: Propranolol 20 MG Tab PO SCH (09:35)
[2017-07-07] MEDS: Spironolactone 25 MG Tab PO SCH ×2 (09:35→20:03)
[2017-07-07] MEDS: Furosemide 20 MG/2 ML VIAL IVPUSH SCH (09:35)
[2017-07-07] MEDS ORDERED: Sodium Chloride 0.9% 250 ML IV SCH (12:30)
[2017-07-07] MEDS: Sucralfate Suspension 1 GM/10 ML Cup PO SCH ×3 (12:46→20:03)
[2017-07-07] MEDS: Sodium Chloride 0.9% 1,000 ML IV SCH (15:20)
--- NOTE | 2017-07-07 17:46 | PCM.PN ---
- General Info Date of Service: 07/07/17 Admission Dx/Problem (Free Text): patient with borderline low BP , refusing medications at time , ammonia level increased to 105 today ,was told to be transfered to another facility to be seen by a GI doctor , but she refused . She agreed to be compliant with treatment and will not request any other pain medications other than the tramadol 50 mg po q 12h . and the sleeping pills. Pain Score: 4 - Review of Systems General: Reports: Weakness, Other (abd pain) HEENT: Reports: No Symptoms Pulmonary: Reports: No Symptoms Cardiovascular: Reports: No Symptoms Gastrointestinal: Reports: Abdominal Pain Genitourinary: Reports: No Symptoms Musculoskeletal: Reports: No Symptoms Skin: Reports: Jaundice Neurological: Reports: No Symptoms - Patient Data Vitals - Most Recent: Last Vital Signs Temp 98.7 F 07/07/17 12:00 Pulse 62 07/07/17 12:00 Resp 16 07/07/17 12:00 BP 97/50 L 07/07/17 12:00 Pulse Ox 93 L 07/07/17 12:00 Weight - Most Recent: 110 lb I&O - Last 24 Hours: Intake & Output 07/07/17 07/07/17 07/07/17 06:59 14:59 22:59 Intake Total 2135 350 1520 Output Total 2530 1100 Balance -395 350 420 Lab Results Last 24 Hours: Laboratory Results - last 24 hr 07/07/17 07/07/17 07/07/17 Range/Units 05:03 05:03 08:38 WBC 3.30 L (4.0-11.0) K/uL RBC 3.73 L (4.30-5.90) M/uL Hgb 12.6 (12.0-16.0) g/dL Hct 37.0 (36.0-46.0) % MCV 99.2 H (80.0-98.0) fL MCH 33.8 H (27.0-32.0) pg MCHC 34.1 (31.0-37.0) g/dL RDW Std Deviation 61.5 (28.0-62.0) fl RDW Coeff of Tracey 17 H (11.0-15.0) % Plt Count 82 L (150-400) K/uL MPV 10.50 (7.40-12.00) fL Nucleated RBC % 0.0 /100WBC Nucleated RBCs # 0 K/uL Sodium 136 (136-146) mmol/L Potassium 3.9 (3.5-5.1) mmol/L Chloride 108 (98-110) mmol/L Carbon Dioxide 24 (21-31) mmol/L BUN 8 (6.0-23.0) mg/dL Creatinine 0.6 (0.6-1.5) mg/dL Est Cr Clr Drug Dosing 84.43 mL/min Estimated GFR (MDRD) > 60.0 ml/min Glucose 94 (60-110) mg/dL Calcium 7.7 L (8.8-10.8) mg/dL Total Bilirubin 2.2 H (0.1-1.5) mg/dL AST 41 H (5-40) IU/L ALT 21 (8-54) IU/L Alkaline Phosphatase 107 (40-150) Ammonia 105 H (14-68) UG/DL Total Protein 5.5 L (6.0-8.0) g/dL Albumin 2.2 L (3.5-5.0) g/dL Globulin 3.3 (2.0-3.5) g/dL Albumin/Globulin Ratio 0.7 L (1.3-2.8) [place] Results Last 24 Hours: Microbiology 07/06/17 12:50 Clostridium difficile Toxin A&B (M) - Final Stool / Feces Negative for C.Diff Toxin/AG 07/06/17 12:50 Campylobacter Antigen Assay - Final Stool / Feces NEGATIVE CAMPYLOBACTER AG - Final NEGATIVE FOR SHIGA TOXIN 1 - Final NEGATIVE FOR SHIGA TOXIN 2 Med Orders - Current: Current Medications Ciprofloxacin (Ciprofloxacin Hcl) 500 mg PO BID [facility] Stop: 07/10/17 21:01 Furosemide (Lasix) 20 mg PO DAILY GER Sodium Chloride (Normal Saline) 1,000 mls @ 30 mls/hr IV STAT GER Last Admin: 07/07/17 15:20 Dose: 30 mls/hr Sodium Chloride (Normal Saline) 500 mls @ 999 mls/hr IV .BOLUS GER Last Admin: 07/05/17 13:00 Dose: 999 mls/hr Sodium Chloride (Normal Saline) 250 mls @ 999 mls/hr IV ASDIRECTED GER Last Admin: 07/07/17 12:30 Dose: 999 mls/hr Lactulose (Chronulac) 20 gm PO DAILY [facility] Last Admin: 07/07/17 15:24 Dose: 20 gm Metronidazole (Metronidazole) 500 mg PO Q12HR [facility] Mirtazapine (Remeron) 15 mg PO BEDTIME [facility] Last Admin: 07/06/17 21:23 Dose: Not Given Nadolol (Naldol) 40 mg PO DAILY [facility] Spironolactone (Aldactone) 25 mg PO BID [facility] Last Admin: 07/07/17 09:35 Dose: Not Given Sucralfate (Carafate) 1 gm PO QIDACANDBED [facility] Last Admin: 07/07/17 16:57 Dose: 1 gm Tramadol HCl (Ultram) 50 mg PO Q12H PRN PRN Reason: Pain Last Admin: 07/07/17 15:22 Dose: 50 mg Discontinued Medications Albuterol/Ipratropium (Duoneb 3.0-0.5 Mg/3 Ml) 3 ml NEB ONETIME ONE Stop: 07/04/17 16:05 Last Admin: 07/04/17 16:30 Dose: 3 ml Eszopiclone (Lunesta) 1 mg PO BEDTIME PRN PRN Reason: sleep Eszopiclone (Lunesta) 0.5 mg PO BEDTIME PRN PRN Reason: Insomnia Furosemide (Lasix) 20 mg IVPUSH Q12H [facility] Last Admin: 07/07/17 09:35 Dose: Not Given Metronidazole 500 mg/ Premix 100 mls @ 100 mls/hr IV Q8H [facility] Last Admin: 07/06/17 05:02 Dose: 100 mls/hr Pantoprazole Sodium 40 mg/ (Sodium Chloride) 10 mls @ 200 mls/hr IV Q12HR [facility] Last Admin: 07/05/17 21:45 Dose: 200 mls/hr Sodium Chloride (Sodium Chloride 0.45%) 1,000 mls @ 75 mls/hr IV ASDIRECTED [facility] Last Admin: 07/05/17 15:33 Dose: 75 mls/hr Albumin Human (Flexbumin 25%) 12.5 gm in 50 mls @ 100 mls/hr IV ONETIME ONE Stop: 07/06/17 09:19 Last Admin: 07/06/17 09:50 Dose: 100 mls/hr Albumin Human (Flexbumin 25%) 12.5 gm in 50 mls @ 100 mls/hr IV ONETIME ONE Stop: 07/06/17 09:20 Last Admin: 07/06/17 10:33 Dose: 100 mls/hr Metronidazole 500 mg/ Premix 100 mls @ 100 mls/hr IV BID [facility] Last Admin: 07/07/17 09:25 Dose: 100 mls/hr Ciprofloxacin/Dextrose 400 mg/ (Premix) 200 mls @ 200 mls/hr IV Q12H [facility] Last Admin: 07/07/17 14:34 Dose: 200 mls/hr Iopamidol (Isovue Multipack-370 (76%)) 61 ml IVPUSH ONETIME STA Stop: 07/04/17 17:40 Last Admin: 07/04/17 17:39 Dose: 61 ml Lactulose (Chronulac) 20 gm PO ONETIME ONE Stop: 07/05/17 16:01 Last Admin: 07/05/17 16:22 Dose: 20 gm Morphine Sulfate (Morphine) 2 mg IV ONETIME ONE Stop: 07/04/17 18:54 Last Admin: 07/04/17 19:00 Dose: 2 mg Morphine Sulfate (Morphine) 2 mg IVPUSH Q2H PRN PRN Reason: Abdominal Pain Last Admin: 07/05/17 09:43 Dose: 2 mg Morphine Sulfate (Morphine) 2 mg IVPUSH Q3H PRN PRN Reason: Pain Last Admin: 07/06/17 22:01 Dose: 2 mg Neomycin Sulfate (Neomycin Sulfate) 4,000 mg PO TID [facility] Last Admin: 07/07/17 13:41 Dose: 4,000 mg Pantoprazole Sodium (Protonix Iv) 40 mg IVPUSH Q12H [facility] Last Admin: 07/04/17 23:15 Dose: 40 mg Pantoprazole Sodium (Protonix Iv) 40 mg IVPUSH Q12HR [facility] Last Admin: 07/07/17 09:23 Dose: 40 mg Propranolol HCl (Inderal) 10 mg PO BID [facility] Last Admin: 07/05/17 23:40 Dose: Not Given Propranolol HCl (Inderal) 10 mg PO BID [facility] Last Admin: 07/07/17 09:35 Dose: Not Given Temazepam (Restoril) 15 mg PO BEDTIME PRN PRN Reason: sleep Last Admin: 07/05/17 00:22 Dose: 15 mg Temazepam (Restoril) 15 mg PO BEDTIME PRN PRN Reason: Insomnia Last Admin: 07/06/17 22:03 Dose: 15 mg Tramadol HCl (Ultram) 50 mg PO Q6H PRN PRN Reason: Pain Last Admin: 07/06/17 04:54 Dose: 50 mg Tramadol HCl (Ultram) 100 mg PO TID PRN PRN Reason: Pain Last Admin: 07/05/17 16:30 Dose: 100 mg Zaleplon (Sonata) 10 mg PO BEDTIME PRN PRN Reason: Insomnia - Exam Quality Assessment: Supplemental Oxygen General: Alert, Oriented, Cooperative HEENT: Pupils Equal, Scleral Icterus Neck: Supple, Trachea Midline, No JVD Lungs: Clear to Auscultation, Normal Respiratory Effort Cardiovascular: Regular Rate, Regular Rhythm, No Murmurs GI/Abdominal Exam: Normal Bowel Sounds, Soft, Tender, Splenomegaly Extremities: Normal Inspection Skin: Warm, Dry Wound/Incisions: Healing Well Neurological: No New Focal Deficit Psy/Mental Status: Alert, Normal Affect - Problem List & Annotations (1) Abdominal pain SNOMED Code(s): 56404226 Code(s): R10.9 - UNSPECIFIED ABDOMINAL PAIN Status: Acute Current Visit: No (2) Abdominal pain SNOMED Code(s): 38181582 Code(s): R10.9 - UNSPECIFIED ABDOMINAL PAIN Status: Acute Current Visit: Yes Qualifiers: Abdominal location: upper abdomen, unspecified Qualified Code(s): R10.10 - Upper abdominal pain, unspecified (3) Cirrhosis SNOMED Code(s): 55666168 Code(s): K74.60 - UNSPECIFIED CIRRHOSIS OF LIVER Status: Acute Current Visit: Yes (4) Pleural effusion SNOMED Code(s): 06221312 Code(s): J90 - PLEURAL EFFUSION, NOT ELSEWHERE CLASSIFIED Status: Acute Current Visit: Yes (5) Ascites SNOMED Code(s): 816313668 Code(s): R18.8 - OTHER ASCITES Status: Acute Current Visit: No (6) Colitis SNOMED Code(s): 62350325 Code(s): K52.9 - NONINFECTIVE GASTROENTERITIS AND COLITIS, UNSPECIFIED Status: Acute Current Visit: No (7) Hyperammonemia SNOMED Code(s): 5471577 Code(s): E72.20 - DISORDER OF UREA CYCLE METABOLISM, UNSPECIFIED Status: Acute Current Visit: Yes (8) Liver failure without hepatic coma SNOMED Code(s): 64592276 Code(s): K72.90 - HEPATIC FAILURE, UNSPECIFIED WITHOUT COMA Status: Acute Current Visit: Yes Qualifiers: Liver failure chronicity: unspecified chronicity Qualified Code(s): K72.90 - Hepatic failure, unspecified without coma - Problem List Review Problem List Initiated/Reviewed/Updated: Yes - My Orders Last 24 Hours: My Active Orders 07/07/17 12:00 Sucralfate [Carafate] 1 gm PO QIDACANDBED 07/07/17 12:30 Sodium Chloride 0.9% [Normal Saline] 250 ml IV ASDIRECTED 07/07/17 21:00 Ciprofloxacin [Ciprofloxacin HCl] 500 mg PO BID metroNIDAZOLE 500 mg PO Q12HR 07/08/17 05:11 CBC W/O DIFF,HEMOGRAM [HEME] AM CMP [COMPREHENSIVE METABOLIC PN,CMP] [CHEM] AM 07/08/17 09:00 Furosemide [Lasix] 20 mg PO DAILY Nadolol [Naldol] 40 mg PO DAILY 07/09/17 05:11 CBC W/O DIFF,HEMOGRAM [HEME] AM CMP [COMPREHENSIVE METABOLIC PN,CMP] [CHEM] AM 07/10/17 05:11 CBC W/O DIFF,HEMOGRAM [HEME] AM - Plan Plan:: Ct abdomen: splenomegaly , portal hypertension, antral gastritis possible ulcer , possible colitis, liver cirrhosis, right hydrothorax,mild ascitis , mild pericardial effusions A/P Sob secondary to Rt pl. effusions- s/p throracentesis rt, patient breathing well Abdominal pain, gastritis, possible colitis : change flagyl to 500 mg po q12h , add ciprofloxacin 400 mg iv q12h , stool studies neg for C diff protonix 40 mg po q 12h Hyperammoniemia- incread today -continue lactulose 20 mg po daily , continue neomycin 4000 mg po daily , f/up ammonia level Thrombocytopenia- stable-secondary to splenomegaly , secondary to cirrhosis , monitor platelets. Weight loss, decreased appetite- remeron 15 mg po qhs Hepatic failure- monitor ammonia level , Bilirubin , INR , platelets, f/up with GI Esophageal varices: change propranolol to nadolol , hold for systolic BP less than 90 , HR less than 60 Hypotension-medications on hold today , lasix changed to po 20 mg daily Hold the opioids - as patient has drug seeking behavior and she is getting hypotension with morphine and bradypneea D/c planning tomorrow
[2017-07-07] MEDS: Mirtazapine 15 MG Tab PO SCH (20:03)
[2017-07-07] MEDS: Ciprofloxacin 250 MG Tab PO SCH (20:03)
[2017-07-07] MEDS: metroNIDAZOLE 250 MG Tab PO SCH (20:03)
[2017-07-07] MEDS ORDERED: Temazepam 15 MG Cap PO ONE (21:09)
[2017-07-08 06:59] LABS: CHLORIDE,CL 113 mmol/L (98-110); SODIUM,NA 140 mmol/L (136-146)
[2017-07-08] MEDS: Sucralfate Suspension 1 GM/10 ML Cup PO SCH ×2 (07:33→10:30)
[2017-07-08] MEDS: Spironolactone 25 MG Tab PO SCH (08:56)
[2017-07-08] MEDS: metroNIDAZOLE 250 MG Tab PO SCH (08:56)
[2017-07-08] MEDS: Ciprofloxacin 250 MG Tab PO SCH (08:56)
[2017-07-08] MEDS: Lactulose Soln 10 GM/15 ML 15 ML UD Cup PO SCH (08:56)
[2017-07-08] MEDS ORDERED: Furosemide 20 MG Tab PO SCH (09:00)
[2017-07-08] MEDS ORDERED: Sodium Chloride 0.9% 500 ML IV SCH (09:30)
[2017-07-08 11:58] VITALS: BP 100/54
--- NOTE | 2017-07-08 14:09 | PCM.DCSUM1 ---
Discharge Summary - Hospital Course HPI Initial Comments: Patient 56 y old female with liver failure presented to Er with SOB and was found to have rt sided pleural effusions . Patient had thoracentesis and fluid was removed , it was transudate . She had abdominal sonogram , but she did not have enough fluid in ascitis to have paracenthesis. In the hospital at admission her ammonia level was 120 and decreased to 94 and increased again to 119 , despite she was receiving lactulose and neomicin. Rifaximin was not available in the hospital. I have discussed to patient to have transfer to be evaluated by gastroenterologyst , she refused. She complained about abdominal pain and requested pain medications ,but medications could not be given later because of borderline BP. She also had diarrhea and was treated with ciprofloxacin and metronidazole. for possible colitis seen on CT abdomen and with protonix BID for gastritis ( CT abdomen showed thickening of the gastric mucosa consistent with gastritis) - Discharge Data Discharge Date: 07/08/17 Discharge Disposition: Home, Self-Care 01 Condition: Good - Discharge Diagnosis/Problem(s) (1) Abdominal pain SNOMED Code(s): 33939265 ICD Code: R10.9 - UNSPECIFIED ABDOMINAL PAIN Status: Acute (2) Abdominal pain SNOMED Code(s): 88101429 ICD Code: R10.9 - UNSPECIFIED ABDOMINAL PAIN Status: Acute Qualifiers: Abdominal location: upper abdomen, unspecified Qualified Code(s): R10.10 - Upper abdominal pain, unspecified (3) Cirrhosis SNOMED Code(s): 76361495 ICD Code: K74.60 - UNSPECIFIED CIRRHOSIS OF LIVER Status: Acute (4) Pleural effusion SNOMED Code(s): 68471402 ICD Code: J90 - PLEURAL EFFUSION, NOT ELSEWHERE CLASSIFIED Status: Acute (5) Ascites SNOMED Code(s): 459822002 ICD Code: R18.8 - OTHER ASCITES Status: Acute (6) Colitis SNOMED Code(s): 44061394 ICD Code: K52.9 - NONINFECTIVE GASTROENTERITIS AND COLITIS, UNSPECIFIED Status: Acute (7) Hyperammonemia SNOMED Code(s): 4098698 ICD Code: E72.20 - DISORDER OF UREA CYCLE METABOLISM, UNSPECIFIED Status: Acute (8) Liver failure without hepatic coma SNOMED Code(s): 17087468 ICD Code: K72.90 - HEPATIC FAILURE, UNSPECIFIED WITHOUT COMA Status: Acute Qualifiers: Liver failure chronicity: unspecified chronicity Qualified Code(s): K72.90 - Hepatic failure, unspecified without coma - Patient Instructions Diet: Renal Diet Diet, Other: low protein diet Activity: As Tolerated Driving: Do Not Drive Showering/Bathing: December Shower - Discharge Plan Prescriptions/Med Rec: metroNIDAZOLE 500 mg PO Q12HR #4 tablet Ciprofloxacin [Ciprofloxacin HCl] 500 mg PO BID #2 tablet Lactulose [Chronulac] 20 gm PO DAILY #1 cup Nadolol [Naldol] 40 mg PO DAILY #30 tablet Rifaximin [Xifaxan] 1,000 mg PO BID 30 Days #60 tablet traMADol [Ultram] 50 mg PO Q12H PRN #20 tablet PRN Reason: Pain Home Medications: Home Meds Spironolactone [Aldactone] 25 mg PO DAILY 04/27/17 [History] Lactulose [Kristalose] 20 gm PO DAILY 07/04/17 [History] Pantoprazole Sodium [Protonix] 40 mg PO DAILY 07/04/17 [History] Ciprofloxacin [Ciprofloxacin HCl] 500 mg PO BID #2 tablet 07/08/17 [Rx] Lactulose [Chronulac] 20 gm PO DAILY #1 cup 07/08/17 [Rx] Nadolol [Naldol] 40 mg PO DAILY #30 tablet 07/08/17 [Rx] Rifaximin [Xifaxan] 1,000 mg PO BID 30 Days #60 tablet 07/08/17 [Rx] metroNIDAZOLE 500 mg PO Q12HR #4 tablet 07/08/17 [Rx] traMADol [Ultram] 50 mg PO Q12H PRN #20 tablet 07/08/17 [Rx] Patient Handouts: Pleural Effusion - Discharge Summary/Plan Comment DC Time >30 min.: Yes - General Info Date of Service: 07/08/17 Admission Dx/Problem (Free Text: Patient 56 y old female with PMhx of liver cirrhosis and ascitis , S/p Rt pleural effusions drainage 2 weeks ago presented to Er due to worsening SOb for the fast few days. Patient also reports feeling dizzy and hitting her head/face on a closet, No LOC. . She had Hep. C and was treated for it. She also used to drink alcohol , but stopped 16 years ago. C/o abdominal pain that is diffuse in the abdomen , mild to moderate and muscle cramps. Denies heartburn - Review of Systems General: Reports: Weakness Pulmonary: Reports: No Symptoms Cardiovascular: Reports: No Symptoms Gastrointestinal: Reports: No Symptoms Genitourinary: Reports: No Symptoms Musculoskeletal: Reports: No Symptoms Skin: Reports: Jaundice Neurological: Reports: No Symptoms Psychiatric: Reports: No Symptoms - Patient Data Vitals - Most Recent: Last Vital Signs Temp 98.2 F 07/08/17 11:57 Pulse 60 07/08/17 11:57 Resp 22 H 07/08/17 11:57 BP 100/54 L 07/08/17 11:57 Pulse Ox 90 L 07/08/17 11:57 Weight - Most Recent: 110 lb I&O - Last 24 hours: Intake & Output 07/07/17 07/08/17 07/08/17 22:59 06:59 14:59 Intake Total 1520 1340 Output Total 1100 2500 Balance 420 -1160 Lab Results - Last 24 hrs: Laboratory Results - last 24 hr 07/08/17 07/08/17 07/08/17 Range/Units 06:15 06:15 08:38 WBC 3.86 L (4.0-11.0) K/uL RBC 4.11 L (4.30-5.90) M/uL Hgb 13.9 (12.0-16.0) g/dL Hct 40.7 (36.0-46.0) % MCV 99.0 H (80.0-98.0) fL MCH 33.8 H (27.0-32.0) pg MCHC 34.2 (31.0-37.0) g/dL RDW Std Deviation 62.2 H (28.0-62.0) fl RDW Coeff of Tracey 17 H (11.0-15.0) % Plt Count 63 L (150-400) K/uL MPV 10.40 (7.40-12.00) fL Nucleated RBC % 0.0 /100WBC Nucleated RBCs # 0 K/uL Sodium 140 (136-146) mmol/L Potassium 4.2 (3.5-5.1) mmol/L Chloride 113 H (98-110) mmol/L Carbon Dioxide 24 (21-31) mmol/L BUN 7 (6.0-23.0) mg/dL Creatinine 0.6 (0.6-1.5) mg/dL Est Cr Clr Drug Dosing 84.43 mL/min Estimated GFR (MDRD) > 60.0 ml/min Glucose 101 (60-110) mg/dL Calcium 8.5 L (8.8-10.8) mg/dL Total Bilirubin 1.8 H (0.1-1.5) mg/dL AST 49 H (5-40) IU/L ALT 24 (8-54) IU/L Alkaline Phosphatase 134 (40-150) Ammonia 123 H (14-68) UG/DL Total Protein 5.9 L (6.0-8.0) g/dL Albumin 2.3 L (3.5-5.0) g/dL Globulin 3.6 H (2.0-3.5) g/dL Albumin/Globulin Ratio 0.6 L (1.3-2.8) NERI Results - Last 24 hrs: Microbiology 07/06/17 12:50 Stool Culture - Final Stool / Feces NO SALMONELLA, SHIGELLA,OR E.COLI O157 ISOLATED Campylobacter Antigen Assay - Final NEGATIVE CAMPYLOBACTER AG - Final NEGATIVE FOR SHIGA TOXIN 1 - Final NEGATIVE FOR SHIGA TOXIN 2 07/06/17 12:50 Clostridium difficile Toxin A&B (M) - Final Stool / Feces Negative for C.Diff Toxin/AG Med Orders - Current: Current Medications Ciprofloxacin (Ciprofloxacin Hcl) 500 mg PO BID [facility] Stop: 07/10/17 21:01 Last Admin: 07/08/17 08:56 Dose: 500 mg Sodium Chloride (Normal Saline) 1,000 mls @ 30 mls/hr IV STAT [facility] Last Admin: 07/07/17 15:20 Dose: 30 mls/hr Sodium Chloride (Normal Saline) 500 mls @ 999 mls/hr IV .BOLUS [facility] Last Admin: 07/05/17 13:00 Dose: 999 mls/hr Sodium Chloride (Normal Saline) 250 mls @ 999 mls/hr IV ASDIRECTED [facility] Last Admin: 07/07/17 12:30 Dose: 999 mls/hr Sodium Chloride (Normal Saline) 500 mls @ 999 mls/hr IV ASDIRECTED [facility] Lactulose (Chronulac) 20 gm PO DAILY [facility] Last Admin: 07/08/17 08:56 Dose: 20 gm Metronidazole (Metronidazole) 500 mg PO Q12HR [facility] Last Admin: 07/08/17 08:56 Dose: 500 mg Mirtazapine (Remeron) 15 mg PO BEDTIME [facility] Last Admin: 07/07/17 20:03 Dose: 15 mg Nadolol (Naldol) 40 mg PO DAILY [facility] Last Admin: 07/08/17 08:55 Dose: 40 mg Neomycin Sulfate (Neomycin Sulfate) 4,000 mg PO DAILY [facility] Spironolactone (Aldactone) 25 mg PO BID [facility] Last Admin: 07/08/17 08:56 Dose: 25 mg Sucralfate (Carafate) 1 gm PO QIDACANDBED [facility] Last Admin: 07/08/17 10:30 Dose: 1 gm Tramadol HCl (Ultram) 50 mg PO Q12H PRN PRN Reason: Pain Last Admin: 07/07/17 15:22 Dose: 50 mg Discontinued Medications Albuterol/Ipratropium (Duoneb 3.0-0.5 Mg/3 Ml) 3 ml NEB ONETIME ONE Stop: 07/04/17 16:05 Last Admin: 07/04/17 16:30 Dose: 3 ml Eszopiclone (Lunesta) 1 mg PO BEDTIME PRN PRN Reason: sleep Eszopiclone (Lunesta) 0.5 mg PO BEDTIME PRN PRN Reason: Insomnia Furosemide (Lasix) 20 mg IVPUSH Q12H [facility] Last Admin: 07/07/17 09:35 Dose: Not Given Furosemide (Lasix) 20 mg PO DAILY [facility] Last Admin: 07/08/17 08:56 Dose: 20 mg Metronidazole 500 mg/ Premix 100 mls @ 100 mls/hr IV Q8H [facility] Last Admin: 07/06/17 05:02 Dose: 100 mls/hr Pantoprazole Sodium 40 mg/ (Sodium Chloride) 10 mls @ 200 mls/hr IV Q12HR [facility] Last Admin: 07/05/17 21:45 Dose: 200 mls/hr Sodium Chloride (Sodium Chloride 0.45%) 1,000 mls @ 75 mls/hr IV ASDIRECTED [facility] Last Admin: 07/05/17 15:33 Dose: 75 mls/hr Albumin Human (Flexbumin 25%) 12.5 gm in 50 mls @ 100 mls/hr IV ONETIME ONE Stop: 07/06/17 09:19 Last Admin: 07/06/17 09:50 Dose: 100 mls/hr Albumin Human (Flexbumin 25%) 12.5 gm in 50 mls @ 100 mls/hr IV ONETIME ONE Stop: 07/06/17 09:20 Last Admin: 07/06/17 10:33 Dose: 100 mls/hr Metronidazole 500 mg/ Premix 100 mls @ 100 mls/hr IV BID [facility] Last Admin: 07/07/17 09:25 Dose: 100 mls/hr Ciprofloxacin/Dextrose 400 mg/ (Premix) 200 mls @ 200 mls/hr IV Q12H [facility] Last Admin: 07/07/17 14:34 Dose: 200 mls/hr Iopamidol (Isovue Multipack-370 (76%)) 61 ml IVPUSH ONETIME STA Stop: 07/04/17 17:40 Last Admin: 07/04/17 17:39 Dose: 61 ml Lactulose (Chronulac) 20 gm PO ONETIME ONE Stop: 07/05/17 16:01 Last Admin: 07/05/17 16:22 Dose: 20 gm Morphine Sulfate (Morphine) 2 mg IV ONETIME ONE Stop: 07/04/17 18:54 Last Admin: 07/04/17 19:00 Dose: 2 mg Morphine Sulfate (Morphine) 2 mg IVPUSH Q2H PRN PRN Reason: Abdominal Pain Last Admin: 07/05/17 09:43 Dose: 2 mg Morphine Sulfate (Morphine) 2 mg IVPUSH Q3H PRN PRN Reason: Pain Last Admin: 07/06/17 22:01 Dose: 2 mg Neomycin Sulfate (Neomycin Sulfate) 4,000 mg PO TID [facility] Last Admin: 07/07/17 13:41 Dose: 4,000 mg Pantoprazole Sodium (Protonix Iv) 40 mg IVPUSH Q12H [facility] Last Admin: 07/04/17 23:15 Dose: 40 mg Pantoprazole Sodium (Protonix Iv) 40 mg IVPUSH Q12HR [facility] Last Admin: 07/07/17 09:23 Dose: 40 mg Propranolol HCl (Inderal) 10 mg PO BID [facility] Last Admin: 07/05/17 23:40 Dose: Not Given Propranolol HCl (Inderal) 10 mg PO BID [facility] Last Admin: 07/07/17 09:35 Dose: Not Given Temazepam (Restoril) 15 mg PO BEDTIME PRN PRN Reason: sleep Last Admin: 07/05/17 00:22 Dose: 15 mg Temazepam (Restoril) 15 mg PO BEDTIME PRN PRN Reason: Insomnia Last Admin: 07/06/17 22:03 Dose: 15 mg Temazepam (Restoril) 15 mg PO ONETIME ONE Stop: 07/07/17 21:10 Last Admin: 07/07/17 21:18 Dose: 15 mg Tramadol HCl (Ultram) 50 mg PO Q6H PRN PRN Reason: Pain Last Admin: 07/06/17 04:54 Dose: 50 mg Tramadol HCl (Ultram) 100 mg PO TID PRN PRN Reason: Pain Last Admin: 07/05/17 16:30 Dose: 100 mg Zaleplon (Sonata) 10 mg PO BEDTIME PRN PRN Reason: Insomnia - Exam General: Reports: Alert, Oriented HEENT: Reports: Pupils Equal, Pupils Reactive, EOMI, Scleral Icterus Neck: Reports: Supple, Trachea Midline, No JVD, No Thyromegaly Lungs: Reports: Clear to Auscultation, Normal Respiratory Effort Cardiovascular: Reports: Regular Rate, Regular Rhythm, No Murmurs GI/Abdominal Exam: Normal Bowel Sounds, Soft, Non-Tender, No Organomegaly Skin: Reports: Warm, Dry Neurological: Reports: No New Focal Deficit Psy/Mental Status: Reports: Alert, Anxious *Q Meaningful Use (DIS) - VTE *Q VTE Criteria *Q: - Stroke *Q Stroke Criteria *Q: - AMI *Q AMI Criteria *Q:
== END 2017-07-08 15:06 | disposition home or self-care (01) | DRG 392 ==
LOC: MW.ED 15:42 → MW.OB 18:56 → OBSVTOIN 07-05 10:02 → MW.MS 07-05 11:40
PROVIDERS: ADMIT Internal Medicine; ATTEND Internal Medicine
PROC: 0W993ZZ Drainage of Right Pleural Cavity, Percutaneous Approach (ICD-10-PCS; principal; 2017-07-05)
DX: R10.9 Unspecified abdominal pain (principal); R10.10 Upper abdominal pain, unspecified; R06.02 Shortness of breath; J90 Pleural effusion, not elsewhere classified; R18.8 Other ascites; E72.20 Disorder of urea cycle metabolism, unspecified; K74.60 Unspecified cirrhosis of liver; Z86.19 Personal history of other infectious and parasitic diseases; K52.9 Noninfective gastroenteritis and colitis, unspecified; K72.90 Hepatic failure, unspecified without coma; F41.9 Anxiety disorder, unspecified; F17.200 Nicotine dependence, unspecified, uncomplicated; Z79.899 Other long term (current) drug therapy
CPT/HCPCS: 36415 ×2; 71010; 71260; 74177; 80053 ×2; 81001; 82140 ×2; 84484; 85025 ×2; 85610; 85730; 93005; 94640; 96361; 96374; 99285; A9270 ×5; C9113 ×2; J2270 ×4; J7040 ×2; Q9967; 32555; 82945; 83615; 84157; 85027; 87046; 87324; 87899; 89050; 96365; 96366; 96375; 96376; C1729; G0378; J0744; J7030; J7050; P9047

== ENCOUNTER 2017-08-07 18:28 | Emergency (ER) | payer MEDICARE ==
[2017-08-07] MEDS ORDERED: Sodium Chloride 0.9% 10 ML Syringe FLUSH PRN (18:56)
[2017-08-07] MEDS ORDERED: HYDROmorphone 1 MG/ML Syringe IVPUSH ONE (18:57)
[2017-08-07] MEDS ORDERED: Ondansetron 4 MG/2 ML SDV IVPUSH ONE (19:00)
--- NOTE | 2017-08-07 19:03 | EDM.PDOC ---
ED HPI GENERAL MEDICAL PROBLEM - General Chief Complaint: Abdominal Pain Stated Complaint: ABD PAIN Time Seen by Provider: 08/07/17 19:00 Source of Information: Reports: Patient History Limitations: Reports: No Limitations - History of Present Illness INITIAL COMMENTS - FREE TEXT/NARRATIVE: HISTORY AND PHYSICAL: []56-year-old female presenting with nonspecific abdominal pain/ cramping History of Present Illness: []Patient has history of cirrhosis and ascites Her personal physician is Dr. Rich. She is on large amounts of Lasix at home Review of Systems: As per history of present illness and below otherwise all systems reviewed and negative. Past medical history: As per history of present illness and as reviewed below otherwise noncontributory. Surgical history: As per history of present illness and as reviewed below otherwise noncontributory. Social history: No reported history of drug or alcohol abuse. Family history: As per history of present illness and as reviewed below otherwise noncontributory. Physical exam: Alert and oriented female complaining of abdominal pain laying flat is better than sitting up speaking in full sentences without any shortness of breath HEENT: Atraumatic, normocehpalic, pupils reactive, negative for conjunctival pallor or scleral icterus, mucous membranes moist, throat clear, neck supple, nontender, trachea midline. Lungs: Clear to auscultation, breath sounds equal bilaterally, chest non tender. Heart: S1S2, regular, negative for clicks, rubs, or JVD. Abdomen: Soft, distended, nontender. Negative for masses or hepatossplenmegaly. Negative for costovertebral tenderness. Pelvis: Stable nontender. Genitourinary: Deferred. Rectal: Deferred Extremities: Atraumatic, negative for cords or calf pain. Neurovascular unremarkable. Neuro: Awake, alert, oriented. Cranial nerves II through XII unremarkable. Cerebellum unremarkable. Motor and sensory unremarkable throughout. Exam nonfocal. Diagnostics: [CT scan chest and abdomen] Therapeutics: [1 L of fluid 40 mg furosemide] Impression: [Acute ascites Chronic ascites Atelectasis] Plan: [Discharged to home Continue with your current medication See Dr. Rich on Tuesday] Definitive disposition and diagnosis as appropriate pending reevaluation and review of above. Abdomen Pain Score (Numeric/FACES): 7 - Related Data Allergies Allergy/AdvReac Type Severity Reaction Status Date / Time No Known Allergies Allergy Verified 08/07/17 18:33 Home Meds: Home Meds Spironolactone [Aldactone] 25 mg PO DAILY 04/27/17 [History] Lactulose [Kristalose] 20 gm PO DAILY 07/04/17 [History] Pantoprazole Sodium [Protonix] 40 mg PO DAILY 07/04/17 [History] Lactulose [Chronulac] 20 gm PO DAILY #1 cup 07/08/17 [Rx] Furosemide 20 mg PO DAILY 08/07/17 [History] Propranolol [Inderal] 10 mg PO DAILY 08/07/17 [History] Past Medical History - Past Health History Medical/Surgical History: Denies Medical/Surgical History HEENT 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: Other (See Below) Other HEENT History: Dry eyes syndrome, wears reading eyeglasses Cardiovascular 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: None Respiratory 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: None Gastrointestinal 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: Cirrhosis, Hepatitis, Other (See Below) Other Gastrointestinal History: esophageal varicies Genitourinary 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: Other (See Below) Other Genitourinary History: had UTI when she was a teenager 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: 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 , Neurological 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: Other (See Below) Other Neuro History: Started to have a bad headache recently Psychiatric 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: Anxiety Endocrine/Metabolic 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: None Hematologic 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: None Immunologic 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: None Oncologic (Cancer) 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: None Dermatologic 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: Other (See Below) Other Dermatologic History: dry skin - Infectious Disease History Infectious Disease 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: Hepatitis A - Past Surgical History Head Surgeries/Procedures: Reports: None HEENT Surgical 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: None GI Surgical 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: Colonoscopy, EGD, Esophageal Dilatation Musculoskeletal Surgical 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: None Social & Family History - Family History Family Medical History: Noncontributory Neurological: Reports: Alzheimers Disease, Dementia - Tobacco Use Smoking Status *Q: Never Smoker Years of Tobacco use: 5 Packs/Tins Daily: 0.1 Used Tobacco, but Quit: No Second Hand Smoke Exposure: Yes - Caffeine Use Caffeine Use: Reports: None Caffeine Use Comment: 1 cup every other day - Recreational Drug Use Recreational Drug Use: No ED ROS GENERAL - Review of Systems Review Of Systems: ROS reveals no pertinent complaints other than HPI. ED EXAM, GI/ABD - Physical Exam Exam: See Below Course - Vital Signs Last Recorded V/S: Last Vital Signs Temp 35.7 C 08/07/17 18:36 Pulse 104 H 08/07/17 18:36 Resp 18 08/07/17 18:36 BP 111/72 08/07/17 18:36 Pulse Ox 94 L 08/07/17 18:36 - Orders/Labs/Meds Orders: Active Orders 24 hr Category Date Time Status EKG Documentation Completion [RC] STAT Care 08/07/17 18:57 Active Abdomen Pelvis w Cont [CT] Stat Exams 08/07/17 18:57 Ordered Chest w Cont [CT] Stat Exams 08/07/17 20:00 Taken CULTURE URINE [RM] Stat Lab 08/07/17 20:40 Received Sodium Chloride 0.9% [Saline Flush] Med 08/07/17 18:56 Active 10 ml FLUSH ASDIRECTED PRN Sodium Chloride 0.9% [Saline Flush] Med 08/07/17 18:56 Active 2.5 ml FLUSH ASDIRECTED PRN Saline Lock Insert [OM.PC] Stat Oth 08/07/17 18:57 Ordered Medication Orders Sodium Chloride (Saline Flush) 10 ml FLUSH ASDIRECTED PRN PRN Reason: Keep Vein Open Last Admin: 08/07/17 20:39 Dose: 10 ml Sodium Chloride (Saline Flush) 2.5 ml FLUSH ASDIRECTED PRN PRN Reason: Keep Vein Open Last Admin: 08/07/17 20:39 Dose: 2.5 ml Admin: 08/07/17 19:48 Dose: 2.5 ml Labs: Laboratory Tests 08/07/17 08/07/17 08/07/17 Range/Units 19:04 19:04 19:04 WBC 4.37 (4.0-11.0) K/uL RBC 4.35 (4.30-5.90) M/uL Hgb 14.7 (12.0-16.0) g/dL Hct 42.7 (36.0-46.0) % MCV 98.2 H (80.0-98.0) fL MCH 33.8 H (27.0-32.0) pg MCHC 34.4 (31.0-37.0) g/dL RDW Std Deviation 56.1 (28.0-62.0) fl RDW Coeff of Tracey 16 H (11.0-15.0) % Plt Count 51 L (150-400) K/uL MPV 11.10 (7.40-12.00) fL Neut % (Auto) 57.0 (48.0-80.0) % Lymph % (Auto) 29.3 (16.0-40.0) % Harper % (Auto) 11.4 (0.0-15.0) % Eos % (Auto) 1.8 (0.0-7.0) % Baso % (Auto) 0.5 (0.0-1.5) % Neut # (Auto) 2.5 (1.4-5.7) K/uL Lymph # (Auto) 1.3 (0.6-2.4) K/uL Harper # (Auto) 0.5 (0.0-0.8) K/uL Eos # (Auto) 0.1 (0.0-0.7) K/uL Baso # (Auto) 0.0 (0.0-0.1) K/uL Nucleated RBC % 0.0 /100WBC Nucleated RBCs # 0 K/uL INR 1.37 H (0.86-1.11) Sodium 137 (136-146) mmol/L Potassium 3.6 (3.5-5.1) mmol/L Chloride 106 (98-110) mmol/L Carbon Dioxide 24 (21-31) mmol/L BUN 9 (6.0-23.0) mg/dL Creatinine 0.7 (0.6-1.5) mg/dL Est Cr Clr Drug Dosing 74.55 mL/min Estimated GFR (MDRD) > 60.0 ml/min Glucose 128 H (60-110) mg/dL Calcium 8.3 L (8.8-10.8) mg/dL Total Bilirubin 2.5 H (0.1-1.5) mg/dL AST 45 H (5-40) IU/L ALT 31 (8-54) IU/L Alkaline Phosphatase 147 (40-150) Total Protein 6.6 (6.0-8.0) g/dL Albumin 2.5 L (3.5-5.0) g/dL Globulin 4.1 H (2.0-3.5) g/dL Albumin/Globulin Ratio 0.6 L (1.3-2.8) Amylase 71 (10-90) U/L Lipase 116 H (7-80) U/L Urine Color Urine Appearance Urine pH (5.0-8.0) Ur Specific Hammond (1.001-1.035) Urine Protein (NEGATIVE) mg/dL Urine Glucose (UA) (NEGATIVE) mg/dL Urine Ketones (NEGATIVE) mg/dL Urine Occult Blood (NEGATIVE) Urine Nitrite (NEGATIVE) Urine Bilirubin (NEGATIVE) Urine Urobilinogen (<2.0) EU/dL Ur Leukocyte Esterase (NEGATIVE) Urine RBC (0-2/HPF) Urine WBC (0-5/HPF) Ur Epithelial Cells (NONE-FEW) Urine Bacteria (NEGATIVE) 08/07/17 Range/Units 20:40 WBC (4.0-11.0) K/uL RBC (4.30-5.90) M/uL Hgb (12.0-16.0) g/dL Hct (36.0-46.0) % MCV (80.0-98.0) fL MCH (27.0-32.0) pg MCHC (31.0-37.0) g/dL RDW Std Deviation (28.0-62.0) fl RDW Coeff of Tracey (11.0-15.0) % Plt Count (150-400) K/uL MPV (7.40-12.00) fL Neut % (Auto) (48.0-80.0) % Lymph % (Auto) (16.0-40.0) % Harper % (Auto) (0.0-15.0) % Eos % (Auto) (0.0-7.0) % Baso % (Auto) (0.0-1.5) % Neut # (Auto) (1.4-5.7) K/uL Lymph # (Auto) (0.6-2.4) K/uL Harper # (Auto) (0.0-0.8) K/uL Eos # (Auto) (0.0-0.7) K/uL Baso # (Auto) (0.0-0.1) K/uL Nucleated RBC % /100WBC Nucleated RBCs # K/uL INR (0.86-1.11) Sodium (136-146) mmol/L Potassium (3.5-5.1) mmol/L Chloride (98-110) mmol/L Carbon Dioxide (21-31) mmol/L BUN (6.0-23.0) mg/dL Creatinine (0.6-1.5) mg/dL Est Cr Clr Drug Dosing mL/min Estimated GFR (MDRD) ml/min Glucose (60-110) mg/dL Calcium (8.8-10.8) mg/dL Total Bilirubin (0.1-1.5) mg/dL AST (5-40) IU/L ALT (8-54) IU/L Alkaline Phosphatase (40-150) Total Protein (6.0-8.0) g/dL Albumin (3.5-5.0) g/dL Globulin (2.0-3.5) g/dL Albumin/Globulin Ratio (1.3-2.8) Amylase (10-90) U/L Lipase (7-80) U/L Urine Color YELLOW Urine Appearance CLEAR Urine pH 7.0 (5.0-8.0) Ur Specific Hammond <= 1.005 (1.001-1.035) Urine Protein NEGATIVE (NEGATIVE) mg/dL Urine Glucose (UA) NEGATIVE (NEGATIVE) mg/dL Urine Ketones NEGATIVE (NEGATIVE) mg/dL Urine Occult Blood SMALL H (NEGATIVE) Urine Nitrite NEGATIVE (NEGATIVE) Urine Bilirubin NEGATIVE (NEGATIVE) Urine Urobilinogen 0.2 (<2.0) EU/dL Ur Leukocyte Esterase NEGATIVE (NEGATIVE) Urine RBC 0-1 (0-2/HPF) Urine WBC 0-2 (0-5/HPF) Ur Epithelial Cells RARE (NONE-FEW) Urine Bacteria RARE (NEGATIVE) Meds: Medications Generic Name Dose Route Start Last Admin Trade Name Freq PRN Reason Stop Dose Admin Sodium Chloride 10 ml 08/07/17 18:56 08/07/17 20:39 Saline Flush FLUSH 10 ml ASDIRECTED PRN Administration Keep Vein Open Sodium Chloride 2.5 ml 08/07/17 18:56 08/07/17 20:39 Saline Flush FLUSH 2.5 ml ASDIRECTED PRN Administration Keep Vein Open Discontinued Medications Generic Name Dose Route Start Last Admin Trade Name Freq PRN Reason Stop Dose Admin Furosemide 40 mg 08/07/17 20:21 08/07/17 20:41 Lasix IVPUSH 08/07/17 20:22 40 mg NOW ONE Administration Hydromorphone HCl 1 mg 08/07/17 18:57 08/07/17 19:47 Dilaudid IVPUSH 08/07/17 18:58 1 mg ONETIME ONE Administration Sodium Chloride 1,000 mls @ 999 mls/hr 08/07/17 20:21 08/07/17 20:26 Normal Saline IV 08/07/17 21:21 999 mls/hr STAT ONE Administration Iopamidol 62 ml 08/07/17 20:14 Isovue Multipack-370 (76%) IVPUSH 08/07/17 20:15 ONETIME ONE Ondansetron HCl 4 mg 08/07/17 19:00 08/07/17 19:49 Zofran IVPUSH 08/07/17 19:01 4 mg ONETIME ONE Administration Departure - Departure Time of Disposition: 21:27 Disposition: Home, Self-Care 01 Condition: Good Clinical Impression: Cirrhosis Qualifiers: Hepatic cirrhosis type: other cirrhosis Qualified Code(s): K74.69 - Other cirrhosis of liver Ascites Qualifiers: Ascites type: other type Qualified Code(s): R18.8 - Other ascites - Discharge Information Referrals: PCP,None [Primary Care Provider] - Forms: ED Department Discharge Additional Instructions: The following information is given to patients seen in the emergency department who are being discharged to home. This information is to outline your options for follow-up care. We provide all patients seen in our emergency department with a follow-up referral. The need for follow-up, as well as the timing and circumstances, are variable depending upon the specifics of your emergency department visit. If you don't have a primary care physician on staff, we will provide you with a referral. We always advise you to contact your personal physician following an emergency department visit to inform them of the circumstance of the visit and for follow-up with them and/or the need for any referrals to a consulting specialist. The emergency department will also refer you to a specialist when appropriate. This referral assures that you have the opportunity for followup care with a specialist. All of these measure are taken in an effort to provide you with optimal care, which includes your followup. Under all circumstances we always encourage you to contact your private physician who remains a resource for coordinating your care. When calling for followup care, please make the office aware that this follow-up is from your recent emergency room visit. If for any reason you are refused follow-up, please contact the [facility] emergency department at and asked to speak to the emergency department charge nurse. Discharge to home Continue with your current home meds Follow-up with Dr. Rich on Wednesday, August 09, 2017 - My Orders Last 24 Hours: My Active Orders 08/07/17 18:56 Sodium Chloride 0.9% [Saline Flush] 10 ml FLUSH ASDIRECTED PRN Sodium Chloride 0.9% [Saline Flush] 2.5 ml FLUSH ASDIRECTED PRN 08/07/17 18:57 EKG Documentation Completion [RC] STAT Abdomen Pelvis w Cont [CT] Stat Saline Lock Insert [OM.PC] Stat 08/07/17 20:00 Chest w Cont [CT] Stat 08/07/17 20:40 CULTURE URINE [RM] Stat - Assessment/Plan Last 24 Hours: My Active Orders 08/07/17 18:56 Sodium Chloride 0.9% [Saline Flush] 10 ml FLUSH ASDIRECTED PRN Sodium Chloride 0.9% [Saline Flush] 2.5 ml FLUSH ASDIRECTED PRN 08/07/17 18:57 EKG Documentation Completion [RC] STAT Abdomen Pelvis w Cont [CT] Stat Saline Lock Insert [OM.PC] Stat 08/07/17 20:00 Chest w Cont [CT] Stat 08/07/17 20:40 CULTURE URINE [RM] Stat
[2017-08-07 19:34] LABS: CHLORIDE,CL 106 mmol/L (98-110); SODIUM,NA 137 mmol/L (136-146)
[2017-08-07] MEDS: Sodium Chloride 0.9% 2.5 ML Syringe FLUSH PRN ×2 (19:48→20:39)
[2017-08-07] MEDS ORDERED: Iopamidol 755 MG/ML 200 ML Multipack Bottle IVPUSH ONE (20:14)
[2017-08-07] MEDS ORDERED: Furosemide 40 MG/4 ML VIAL IVPUSH ONE (20:21)
[2017-08-07] MEDS ORDERED: Sodium Chloride 0.9% 1,000 ML IV ONE (20:21)
[2017-08-07 21:40] VITALS: BP 124/74
--- NOTE | 2017-08-09 15:38 | CT ---
EXAM DATE: 08/07/17 PATIENT'S AGE: 56 Patient: SAVANNAH SANTOYO Facility: [place], [place] Site . Site : 1960 Study: CT Abdomen/Pelvis w latricia [id number] 8:19:23 PM Ordering Physician: Doctor Coto Final Report: Indication: Abdominal pain since yesterday feeling bloated. Thoracentesis. Shortness of breath. Technique: Contrast-enhanced CT chest abdomen and pelvis. Coronal sagittal reformat images obtained. Comparison: CT chest abdomen pelvis 07/04/2017 Findings: Normal caliber thoracic aorta. Heart size normal. Coronary artery calcification. Tiny anterior pericardial effusion. Small to moderate right pleural effusion ,mildly decreased from the prior study. The central airways are clear. Discoid and compressive atelectasis in the right middle lobe and right lower lobe. Left lung appears clear. Moderate centrilobular emphysema. No pneumothorax. Micronodular cirrhotic morphology liver. No liver lesion. Mild splenomegaly measuring 13.9 cm. Mildly dilated portal vein measuring 1.7 cm. . Recannulized paraumbilical vein. Moderate to large amount of diffuse ascites overall without change. Pancreas, adrenal glands are unremarkable. Possible tiny gallstone or polyp. Tiny cysts in the left kidney. There is no hydronephrosis or nephrolithiasis. Urinary bladder slightly is prominent otherwise unremarkable. Diverticulosis. Normal appendix. Colonic bowel wall thickening again seen primarily involving the right colon probably related probably related to the patient`s cirrhosis. No obstruction. No aortic aneurysm. Left ovary is enlarged and unchanged measuring 4.5 cm Impression: 1. Slightly decreased size of right [id number] effusion from the comparison study. Right middle and lower lobe compressive atelectasis. 2. No acute findings in the abdomen or pelvis. 3. Cirrhotic liver with stigmata of portal hypertension. No discrete lesion. Recannulized periumbilical vein. Mild splenomegaly. 4. Moderate to large diffuse ascites without significant change . 5. Colonic bowel wall thickening primarily involving the right colon likely is related to the patient`s cirrhosis (cirrhotic colonopathy). Please note that all CT scans at this facility use dose modulation, iterative reconstruction, and/or weight-based dosing when appropriate to reduce radiation dose to as low as reasonably achievable. Dictated by Solange Brower MD @ Aug 07 2017 8:45PM (Electronic Signature) Report Signed by Proxy. MTDD
--- NOTE | 2017-08-09 15:39 | CT ---
EXAM DATE: 08/07/17 PATIENT'S AGE: 56 Patient: SAVANNAH SANTOYO Facility: [place], [place] Site . Site : 1960 Study: CT Abdomen/Pelvis w latricia [id number] 8:19:23 PM Ordering Physician: Doctor Coto Final Report: Indication: Abdominal pain since yesterday feeling bloated. Thoracentesis. Shortness of breath. Technique: Contrast-enhanced CT chest abdomen and pelvis. Coronal sagittal reformat images obtained. Comparison: CT chest abdomen pelvis 07/04/2017 Findings: Normal caliber thoracic aorta. Heart size normal. Coronary artery calcification. Tiny anterior pericardial effusion. Small to moderate right pleural effusion ,mildly decreased from the prior study. The central airways are clear. Discoid and compressive atelectasis in the right middle lobe and right lower lobe. Left lung appears clear. Moderate centrilobular emphysema. No pneumothorax. Micronodular cirrhotic morphology liver. No liver lesion. Mild splenomegaly measuring 13.9 cm. Mildly dilated portal vein measuring 1.7 cm. . Recannulized paraumbilical vein. Moderate to large amount of diffuse ascites overall without change. Pancreas, adrenal glands are unremarkable. Possible tiny gallstone or polyp. Tiny cysts in the left kidney. There is no hydronephrosis or nephrolithiasis. Urinary bladder slightly is prominent otherwise unremarkable. Diverticulosis. Normal appendix. Colonic bowel wall thickening again seen primarily involving the right colon probably related probably related to the patient`s cirrhosis. No obstruction. No aortic aneurysm. Left ovary is enlarged and unchanged measuring 4.5 cm Impression: 1. Slightly decreased size of right [id number] effusion from the comparison study. Right middle and lower lobe compressive atelectasis. 2. No acute findings in the abdomen or pelvis. 3. Cirrhotic liver with stigmata of portal hypertension. No discrete lesion. Recannulized periumbilical vein. Mild splenomegaly. 4. Moderate to large diffuse ascites without significant change . 5. Colonic bowel wall thickening primarily involving the right colon likely is related to the patient`s cirrhosis (cirrhotic colonopathy). Please note that all CT scans at this facility use dose modulation, iterative reconstruction, and/or weight-based dosing when appropriate to reduce radiation dose to as low as reasonably achievable. Dictated by Solange Brower MD @ Aug 07 2017 8:45PM (Electronic Signature) Report Signed by Proxy. MTDD
== END 2017-08-07 21:45 | disposition home or self-care (01) ==
LOC: MW.ED 18:28
DX: K74.69 Other cirrhosis of liver (principal); J98.11 Atelectasis; R18.8 Other ascites; Z79.899 Other long term (current) drug therapy
CPT/HCPCS: 36415; 71260; 74177; 80053; 81001; 82150; 83690; 85025; 85610; 87086; 93005; 96361; 96374; 96375; 99284; J1170; J1940; J2405; J7040

== ENCOUNTER 2017-08-11 17:43 | Emergency (ER) | payer MEDICARE ==
[2017-08-11] MEDS ORDERED: Ondansetron 4 MG/2 ML SDV IVPUSH ONE (18:22)
[2017-08-11] MEDS ORDERED: HYDROmorphone 2 MG/ML Syringe IVPUSH ONE (18:22)
[2017-08-11] MEDS ORDERED: Furosemide 40 MG/4 ML VIAL IVPUSH ONE (18:23)
[2017-08-11 19:15] LABS: CHLORIDE,CL 103 mmol/L (98-110); SODIUM,NA 134 mmol/L (136-146)
--- NOTE | 2017-08-11 19:49 | EDM.PDOC ---
ED HPI GENERAL MEDICAL PROBLEM - General Chief Complaint: Abdominal Pain Stated Complaint: STOMACH PAIN Time Seen by Provider: 08/11/17 17:50 Source of Information: Reports: Patient History Limitations: Reports: No Limitations - History of Present Illness INITIAL COMMENTS - FREE TEXT/NARRATIVE: History of present illness: [52-year-old female comes in complaining of swollen abdomen. Patient has been seen in this ER before for ascites and indicates she is struggling with same issues and is willing to be seen and tapped and/or transferred she just indicates she can no longer tolerate the pain] Review of systems: As per history of present illness and below otherwise all systems reviewed and negative. Past medical history: As per history of present illness and as reviewed below otherwise noncontributory. Surgical history: As per history of present illness and as reviewed below otherwise noncontributory. Social history: No reported history of drug or alcohol abuse. Family history: As per history of present illness and as reviewed below otherwise noncontributory. Physical exam: HEENT: Atraumatic, normocephalic, pupils reactive, negative for conjunctival pallor or scleral icterus, mucous membranes moist, throat clear, neck supple, nontender, trachea midline. Lungs: Clear to auscultation, breath sounds equal bilaterally, chest nontender. Heart: S1S2, regular, negative for clicks, rubs, or JVD. Abdomen: Firm, distended, tender and slightly tympanic. Positive for hepatosplenomegaly. Negative for costovertebral tenderness. Pelvis: Stable nontender. Genitourinary: Deferred. Rectal: Deferred. Extremities: Atraumatic, negative for cords or calf pain. Neurovascular unremarkable. Neuro: Awake, alert, oriented. Cranial nerves II through XII unremarkable. Cerebellum unremarkable. Motor and sensory unremarkable throughout. Exam nonfocal. Diagnostics: [BC, CMP, amylase, lipase, CT of the abdomen] Therapeutics: [Dilaudid, Zofran, Lasix] Impression: [#1 ascites] Plan: [Discharge to home with follow-up appointment with Dr. Dumas as well as referral to GI at [facility]] Definitive disposition and diagnosis as appropriate pending reevaluation and review of above. Abdominal Pain Score (Numeric/FACES): 7 - Related Data Allergies Allergy/AdvReac Type Severity Reaction Status Date / Time No Known Allergies Allergy Verified 08/11/17 18:08 Home Meds: Home Meds Spironolactone [Aldactone] 25 mg PO DAILY 04/27/17 [History] Lactulose [Kristalose] 20 gm PO DAILY 07/04/17 [History] Pantoprazole Sodium [Protonix] 40 mg PO DAILY 07/04/17 [History] Lactulose [Chronulac] 20 gm PO DAILY #1 cup 07/08/17 [Rx] Furosemide 20 mg PO DAILY 08/07/17 [History] Propranolol [Inderal] 10 mg PO DAILY 08/07/17 [History] Past Medical History - Past Health History Medical/Surgical History: Denies Medical/Surgical History HEENT 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: Other (See Below) Other HEENT History: Dry eyes syndrome, wears reading eyeglasses Cardiovascular 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: None Respiratory 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: None Gastrointestinal 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: Cirrhosis, Hepatitis, Other (See Below) Other Gastrointestinal History: esophageal varicies Genitourinary 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: Other (See Below) Other Genitourinary History: had UTI when she was a teenager 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 , Neurological 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: Other (See Below) Other Neuro History: Started to have a bad headache recently Psychiatric 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: Anxiety Endocrine/Metabolic 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: None Hematologic 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: None Immunologic 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: None Oncologic (Cancer) 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: None Dermatologic 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: Other (See Below) Other Dermatologic History: dry skin - Infectious Disease History Infectious Disease 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: Hepatitis C - Past Surgical History Head Surgeries/Procedures: Reports: None HEENT Surgical 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: None GI Surgical 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: Colonoscopy, EGD, Esophageal Dilatation Musculoskeletal Surgical 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: None Social & Family History - Family History Family Medical History: Noncontributory Neurological: Reports: Alzheimers Disease, Dementia - Tobacco Use Smoking Status *Q: Never Smoker Years of Tobacco use: 5 Packs/Tins Daily: 0.1 Used Tobacco, but Quit: No Second Hand Smoke Exposure: No - Caffeine Use Caffeine Use: Reports: None Caffeine Use Comment: 1 cup every other day - Recreational Drug Use Recreational Drug Use: No ED ROS GENERAL - Review of Systems Review Of Systems: See Below (History of present illness) ED EXAM, GENERAL - Physical Exam Exam: See Below (See history of present illness) Course - Vital Signs Last Recorded V/S: Last Vital Signs Temp 36.7 C 08/11/17 21:00 Pulse 63 08/11/17 21:00 Resp 18 08/11/17 21:00 BP 135/58 L 08/11/17 21:00 Pulse Ox 94 L 08/11/17 21:00 - Orders/Labs/Meds Orders: Active Orders 24 hr Category Date Time Status Abdomen Pelvis wo Cont [CT] Stat Exams 08/11/17 19:26 Taken Labs: Laboratory Tests 08/11/17 08/11/17 Range/Units 18:45 18:45 WBC 5.07 (4.0-11.0) K/uL RBC 4.67 (4.30-5.90) M/uL Hgb 15.8 (12.0-16.0) g/dL Hct 45.0 (36.0-46.0) % MCV 96.4 (80.0-98.0) fL MCH 33.8 H (27.0-32.0) pg MCHC 35.1 (31.0-37.0) g/dL RDW Std Deviation 54.3 (28.0-62.0) fl RDW Coeff of Tracey 16 H (11.0-15.0) % Plt Count 57 L (150-400) K/uL MPV 12.00 (7.40-12.00) fL Neut % (Auto) 61.9 (48.0-80.0) % Lymph % (Auto) 26.4 (16.0-40.0) % [place] % (Auto) 9.9 (0.0-15.0) % Eos % (Auto) 1.4 (0.0-7.0) % Baso % (Auto) 0.4 (0.0-1.5) % Neut # (Auto) 3.1 (1.4-5.7) K/uL Lymph # (Auto) 1.3 (0.6-2.4) K/uL [place] # (Auto) 0.5 (0.0-0.8) K/uL Eos # (Auto) 0.1 (0.0-0.7) K/uL Baso # (Auto) 0.0 (0.0-0.1) K/uL Nucleated RBC % 0.0 /100WBC Nucleated RBCs # 0 K/uL Sodium 134 L (136-146) mmol/L Potassium 4.2 (3.5-5.1) mmol/L Chloride 103 (98-110) mmol/L Carbon Dioxide 23 (21-31) mmol/L BUN 9 (6.0-23.0) mg/dL Creatinine 0.6 (0.6-1.5) mg/dL Est Cr Clr Drug Dosing 84.43 mL/min Estimated GFR (MDRD) > 60.0 ml/min Glucose 115 H (60-110) mg/dL Calcium 8.2 L (8.8-10.8) mg/dL Total Bilirubin 3.0 H (0.1-1.5) mg/dL AST 56 H (5-40) IU/L ALT 32 (8-54) IU/L Alkaline Phosphatase 142 (40-150) Total Protein 7.2 (6.0-8.0) g/dL Albumin 2.6 L (3.5-5.0) g/dL Globulin 4.6 H (2.0-3.5) g/dL Albumin/Globulin Ratio 0.6 L (1.3-2.8) Amylase 81 (10-90) U/L Lipase 138 H (7-80) U/L Meds: Medications Discontinued Medications Generic Name Dose Route Start Last Admin Trade Name Oziel PRN Reason Stop Dose Admin Furosemide 40 mg 08/11/17 18:23 08/11/17 19:00 Lasix IVPUSH 08/11/17 18:24 40 mg NOW ONE Administration Hydromorphone HCl 1 mg 08/11/17 18:22 08/11/17 19:00 Dilaudid IVPUSH 08/11/17 18:23 1 mg ONETIME ONE Administration Ondansetron HCl 4 mg 08/11/17 18:22 08/11/17 18:59 Zofran IVPUSH 08/11/17 18:23 4 mg ONETIME ONE Administration Departure - Departure Time of Disposition: 22:16 Disposition: Home, Self-Care 01 Condition: Good Clinical Impression: Abdominal pain Ascites Qualifiers: Ascites type: other type Qualified Code(s): R18.8 - Other ascites - Discharge Information Instructions: Abdominal Pain, Adult, [id number] Referrals: PCP,None [Primary Care Provider] - Forms: ED Department Discharge Additional Instructions: The following information is given to patients seen in the emergency department who are being discharged to home. This information is to outline your options for follow-up care. We provide all patients seen in our emergency department with a follow-up referral. The need for follow-up, as well as the timing and circumstances, are variable depending upon the specifics of your emergency department visit. If you don't have a primary care physician on staff, we will provide you with a referral. We always advise you to contact your personal physician following an emergency department visit to inform them of the circumstance of the visit and for follow-up with them and/or the need for any referrals to a consulting specialist. The emergency department will also refer you to a specialist when appropriate. This referral assures that you have the opportunity for follow-up care with a specialist. All of these measure are taken in an effort to provide you with optimal care, which includes your follow-up. Under all circumstances we always encourage you to contact your private physician who remains a resource for coordinating your care. When calling for follow-up care, please make the office aware that this follow-up is from your recent emergency room visit. If for any reason you are refused follow-up, please contact the [facility] Emergency Department at and asked to speak to the emergency department charge nurse. Follow-up with Dr. Dumas as discussed You're being given a referral to the GI clinic in [facility] for follow- up for your chronic ascites and liver issues Please return to the ER as needed as discussed Gastroenterology at [facility] [address] PH:[phone] - My Orders Last 24 Hours: My Active Orders 08/11/17 19:26 Abdomen Pelvis wo Cont [CT] Stat - Assessment/Plan Last 24 Hours: My Active Orders 08/11/17 19:26 Abdomen Pelvis wo Cont [CT] Stat
--- NOTE | 2017-08-11 22:27 | PCM.CONS ---
H&P History of Present Illness - General Date of Service: 08/11/17 - History of Present Illness Initial Comments - Free Text/Narative: 56 yo female with pmh of liver cirrhosis who has had multiple admission due to chronic abdominal pain and colitis. She presents to the ED with a complaint of abdominal pain and ascities for past month. She has requested paracentesis as she believes it is the fluid in her abdomen that is causing her pain. She reports her cloths do not fit her. Her last paracentesis was four months ago. She follows [facility] but patient reports [facility] has not referred her for paracentesis as she did not need it. She denies any fever, emesis, diarrhea, blood in stool, or shortness of breath. Abdominal Pain Score (Numeric/FACES): 7 - Related Data Allergies/Adverse Reactions: Allergies Allergy/AdvReac Type Severity Reaction Status Date / Time No Known Allergies Allergy Verified 08/11/17 18:08 Home Medications: Home Meds Spironolactone [Aldactone] 25 mg PO DAILY 04/27/17 [History] Lactulose [Kristalose] 20 gm PO DAILY 07/04/17 [History] Pantoprazole Sodium [Protonix] 40 mg PO DAILY 07/04/17 [History] Lactulose [Chronulac] 20 gm PO DAILY #1 cup 07/08/17 [Rx] Furosemide 20 mg PO DAILY 08/07/17 [History] Propranolol [Inderal] 10 mg PO DAILY 08/07/17 [History] Past Medical History - Past Health History Medical/Surgical History: Denies Medical/Surgical History HEENT 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: Other (See Below) Other HEENT History: Dry eyes syndrome, wears reading eyeglasses Cardiovascular 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: None Respiratory 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: None Gastrointestinal 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: Cirrhosis, Hepatitis, Other (See Below) Other Gastrointestinal History: esophageal varicies Genitourinary 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: Other (See Below) Other Genitourinary History: had UTI when she was a teenager 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 , Neurological 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: Other (See Below) Other Neuro History: Started to have a bad headache recently Psychiatric 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: Anxiety Endocrine/Metabolic 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: None Hematologic 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: None Immunologic 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: None Oncologic (Cancer) 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: None Dermatologic 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: Other (See Below) Other Dermatologic History: dry skin - Infectious Disease History Infectious Disease 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: Hepatitis C - Past Surgical History Head Surgeries/Procedures: Reports: None HEENT Surgical 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: None GI Surgical 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: Colonoscopy, EGD, Esophageal Dilatation Musculoskeletal Surgical 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: None Social & Family History - Family History Family Medical History: Noncontributory Neurological: Reports: Alzheimers Disease, Dementia - Tobacco Use Smoking Status *Q: Never Smoker Years of Tobacco use: 5 Packs/Tins Daily: 0.1 Used Tobacco, but Quit: No Second Hand Smoke Exposure: No - Caffeine Use Caffeine Use: Reports: None Caffeine Use Comment: 1 cup every other day - Recreational Drug Use Recreational Drug Use: No H&P Review of Systems - Review of Systems: Review Of Systems: ROS reveals no pertinent complaints other than HPI. Exam - Exam Exam: See Below - Vital Signs Vital Signs: Last Vital Signs Temp 36.7 C 08/11/17 21:00 Pulse 63 08/11/17 21:00 Resp 18 08/11/17 21:00 BP 135/58 L 08/11/17 21:00 Pulse Ox 94 L 08/11/17 21:00 Weight: 49.895 kg - Exam General: Alert, Oriented HEENT: Posterior Pharynx Clear Neck: Supple Lungs: Clear to Auscultation, Normal Respiratory Effort Cardiovascular: Regular Rate, Regular Rhythm GI/Abdominal Exam: Normal Bowel Sounds, Soft, Non-Tender, No Mass, Other (no fluid wave). No: Distended, Guarding, Rigid, Rebound, Tender Extremities: Non-Tender, No Pedal Edema - Patient Data Lab Results Last 24 hrs: Laboratory Results - last 24 hr 08/11/17 08/11/17 Range/Units 18:45 18:45 WBC 5.07 (4.0-11.0) K/uL RBC 4.67 (4.30-5.90) M/uL Hgb 15.8 (12.0-16.0) g/dL Hct 45.0 (36.0-46.0) % MCV 96.4 (80.0-98.0) fL MCH 33.8 H (27.0-32.0) pg MCHC 35.1 (31.0-37.0) g/dL RDW Std Deviation 54.3 (28.0-62.0) fl RDW Coeff of Tracey 16 H (11.0-15.0) % Plt Count 57 L (150-400) K/uL MPV 12.00 (7.40-12.00) fL Neut % (Auto) 61.9 (48.0-80.0) % Lymph % (Auto) 26.4 (16.0-40.0) % [place] % (Auto) 9.9 (0.0-15.0) % Eos % (Auto) 1.4 (0.0-7.0) % Baso % (Auto) 0.4 (0.0-1.5) % Neut # (Auto) 3.1 (1.4-5.7) K/uL Lymph # (Auto) 1.3 (0.6-2.4) K/uL [place] # (Auto) 0.5 (0.0-0.8) K/uL Eos # (Auto) 0.1 (0.0-0.7) K/uL Baso # (Auto) 0.0 (0.0-0.1) K/uL Nucleated RBC % 0.0 /100WBC Nucleated RBCs # 0 K/uL Sodium 134 L (136-146) mmol/L Potassium 4.2 (3.5-5.1) mmol/L Chloride 103 (98-110) mmol/L Carbon Dioxide 23 (21-31) mmol/L BUN 9 (6.0-23.0) mg/dL Creatinine 0.6 (0.6-1.5) mg/dL Est Cr Clr Drug Dosing 84.43 mL/min Estimated GFR (MDRD) > 60.0 ml/min Glucose 115 H (60-110) mg/dL Calcium 8.2 L (8.8-10.8) mg/dL Total Bilirubin 3.0 H (0.1-1.5) mg/dL AST 56 H (5-40) IU/L ALT 32 (8-54) IU/L Alkaline Phosphatase 142 (40-150) Total Protein 7.2 (6.0-8.0) g/dL Albumin 2.6 L (3.5-5.0) g/dL Globulin 4.6 H (2.0-3.5) g/dL Albumin/Globulin Ratio 0.6 L (1.3-2.8) Amylase 81 (10-90) U/L Lipase 138 H (7-80) U/L Result Diagrams: 08/11/17 18:45 08/11/17 18:45 Consult PN Assessment/Plan Procedures: Procedures AGENT NOS ASSAY W/OPTIC (07/05/17) AIRWAY INHALATION TREATMENT (07/05/17) ASPIRATE PLEURA W/ IMAGING (07/05/17) ASSAY OF AMMONIA (07/05/17) ASSAY OF AMYLASE (08/07/17) ASSAY OF LIPASE (08/07/17) ASSAY OF MAGNESIUM (04/27/17) ASSAY OF PROTEIN OTHER (07/05/17) ASSAY OF TROPONIN QUANT (07/05/17) BLOOD CULTURE FOR BACTERIA (03/09/17) BLOOD TYPING SEROLOGIC ABO (04/21/17) BLOOD TYPING SEROLOGIC RH(D) (04/21/17) BODY FLUID CELL COUNT (07/05/17) CHEST X-RAY 1 VIEW FRONTAL (07/05/17) CLOSTRIDIUM AG IA (07/05/17) COMPLETE CBC AUTOMATED (07/05/17) COMPLETE CBC W/AUTO DIFF WBC (08/07/17) COMPREHEN METABOLIC PANEL (08/07/17) CT ABD & PELV W/CONTRAST (08/07/17) CT ABD & PELVIS W/O CONTRAST (11/22/16) CT HEAD/BRAIN W/O DYE (04/27/17) CT THORAX W/DYE (08/07/17) ELECTROCARDIOGRAM TRACING (08/07/17) EMERGENCY DEPT VISIT (08/07/17) EMERGENCY DEPT VISIT (07/05/17) EMERGENCY DEPT VISIT (04/27/17) EMERGENCY DEPT VISIT (04/21/17) EMERGENCY DEPT VISIT (04/20/17) EMERGENCY DEPT VISIT (03/09/17) EMERGENCY DEPT VISIT (11/22/16) GLUCOSE OTHER FLUID (07/05/17) HYDRATE IV INFUSION ADD-ON (08/07/17) IIV4 VACC NO PRSV 0.5 ML IM (07/13/17) IMMUNIZATION ADMIN (02/15/17) LACTATE (LD) (LDH) ENZYME (07/05/17) OFFICE/OUTPATIENT VISIT EST (07/13/17) OFFICE/OUTPATIENT VISIT NEW (11/12/16) PROTHROMBIN TIME (08/07/17) RBC ANTIBODY SCREEN (04/21/17) ROUTINE VENIPUNCTURE (08/07/17) RPR S/N/AX/GEN/TRNK2.6-7.5CM (02/15/17) STOOL CULTR AEROBIC BACT EA (07/05/17) TDAP VACCINE 7 YRS/> IM (02/15/17) THER/PROPH/DIAG INJ IV PUSH (08/07/17) THER/PROPH/DIAG INJ SC/IM (04/27/17) THER/PROPH/DIAG IV INF ADDON (11/22/16) THER/PROPH/DIAG IV INF INIT (04/21/17) THROMBOPLASTIN TIME PARTIAL (07/05/17) TX/PRO/DX INJ NEW DRUG ADDON (08/07/17) TX/PRO/DX INJ SAME DRUG BONE PROCESS OPERATOR (04/21/17) TX/PROPH/DG ADDL SEQ IV INF (11/22/16) URINALYSIS AUTO W/SCOPE (08/07/17) URINE CULTURE/COLONY COUNT (08/07/17) US EXAM ABDOM COMPLETE (06/28/17) X-RAY EXAM OF FINGER(S) (03/09/17) X-RAY EXAM SERIES ABDOMEN (07/13/17) Problem List Initiated/Reviewed/Updated: Yes Plan: 56 yo female with Hep C liver cirrhosis who presents with chronic abdominal pain. Patient is requesting paracentesis but there is minimal ascities on exam. I recommend to the patient to increase her lasix to BID for a few days and follow up with her GI specialist and [facility]
[2017-08-11 22:35] VITALS: BP 123/76
--- NOTE | 2017-08-12 15:43 | CT ---
EXAM DATE: 08/11/17 PATIENT'S AGE: 56 Patient: SAVANNAH SANTOYO Facility: [place], [place] Site . Site : [id number] Study: CT Abdomen/Pelvis [id number]/28/2017 8:02:52 PM Ordering Physician: Doctor Coto Final Report: INDICATION: Abdominal pain. TECHNIQUE: CT abdomen and pelvis without contrast. COMPARISON: Recent CT study dated 08/07/2017. FINDINGS: Lower chest: Emphysematous changes with large right pleural effusion. No free air. Size of right pleural effusion grossly unchanged from 4 days prior. Trace pericardial effusion. Calcified coronary artery disease involving the LAD. Liver: Cirrhotic, atrophic appearance to the liver. Evaluation for focal liver lesion limited without IV contrast. Underlying portal hypertension with a recannulized umbilical vein. Moderate amount of abdominal and pelvic ascites, unchanged. Spleen: Spleen is not enlarged. Pancreas: Unremarkable. Gallbladder and bile ducts: Likely tiny gallstone, series 201, image 72. No abnormal biliary dilatation. Adrenal glands: Unremarkable. Kidneys: Unremarkable. No kidney or ureteral stones and no hydronephrosis. GI tract: No bowel obstruction. No abnormal bowel wall thickening, allowing for underlying ascites and lack of enteric contrast enhancement. Likely normal appendix with intraluminal air, series 201, image 111. Vascular structures: Limited evaluation without IV contrast. Moderate calcified plaque involving the abdominal aorta without aneurysmal dilatation. Portal hypertension with a recannulized umbilical vein. Lymph nodes: Unremarkable. Miscellaneous: Moderate abdominal and pelvic ascites. No air identified within the ascites fluid. Pelvic Organs: Uterus are not remarkable. Ovaries not clearly identified. Bladder within normal limits. Bones: Unremarkable for age. IMPRESSION: 1. Cirrhotic liver with moderate abdominal and pelvic ascites with underlying portal hypertension. 2. Due to technical issues, study performed without any IV contrast. 3. Large right pleural effusion, unchanged from 08/07/2017. 4. Likely cholelithiasis. 5. Normal appendix. Overall, no significant interval changes from 4 days prior. Dictated by Zen Hernandez MD @ 08/11/2017 8:43:30 PM Dictated by: Zen Hernandez MD @ 08/11/2017 20:43:39 (Electronic Signature) Report Signed by Proxy. [facility]
== END 2017-08-11 22:30 | disposition home or self-care (01) ==
LOC: MW.ED 17:43
DX: R18.8 Other ascites (principal); Z79.899 Other long term (current) drug therapy
CPT/HCPCS: 36415; 74176; 80053; 82150; 83690; 85025; 96374; 96375; 99285; J1170; J1940; J2405; 99283

== ENCOUNTER 2017-10-13 18:51 | Observation (INO) | payer MEDICARE ==
--- NOTE | 2017-10-13 19:10 | EDM.PDOC ---
ED HPI GENERAL MEDICAL PROBLEM - General Chief Complaint: General Stated Complaint: CONFUSED Time Seen by Provider: 10/13/17 19:10 Source of Information: Reports: Patient - History of Present Illness INITIAL COMMENTS - FREE TEXT/NARRATIVE: HISTORY AND PHYSICAL: History of present illness: [Patient presents with some confusion/delirium/forgetfulness over the last couple of days she has a history of hepatitis C and liver cirrhosis, she is followed by GI specialist in mind that and is actually scheduled for paracentesis tomorrow Patient complains of some abdominal pain 4 out of 10 diffuse which is not unusual looking back on her charts this similar complaint she has had. She has had ultrasound last month that did reveal cholelithiasis and a thickened gallbladder wall attributed to portal hypertension. No current fever nausea vomiting chills sweats no chest pain shortness of breath headache dizziness palpitation no bowel or urine symptoms Review of systems: As per history of present illness and below otherwise all systems reviewed and negative. Past medical history: As per history of present illness and as reviewed below otherwise noncontributory. Surgical history: As per history of present illness and as reviewed below otherwise noncontributory. Social history: No reported history of drug or alcohol abuse. Family history: As per history of present illness and as reviewed below otherwise noncontributory. Physical exam: HEENT: Atraumatic, normocephalic, pupils reactive, negative for conjunctival pallor or scleral icterus, mucous membranes moist, throat clear, neck supple, nontender, trachea midline. Lungs: Clear to auscultation, breath sounds equal bilaterally, chest nontender. Heart: S1S2, regular, negative for clicks, rubs, or JVD. Abdomen: Soft, nondistended, nontender. Negative for masses or hepatosplenomegaly. Negative for costovertebral tenderness. Pelvis: Stable nontender. Genitourinary: Deferred. Rectal: Deferred. Extremities: Atraumatic, negative for cords or calf pain. Neurovascular unremarkable. Neuro: Awake, alert, oriented. Cranial nerves II through XII unremarkable. Cerebellum unremarkable. Motor and sensory unremarkable throughout. Exam nonfocal. Diagnostics: [CBC CMP UA drug screen ]Chest 1 view Therapeutics: [1 L normal saline bolus Normal saline 1 25 mL per hour] Impression: [Delirium] Temperature was elevated at 100.2 on initial exam this has come down to 99 without any particular treatment Patient will be admitted for observation Definitive disposition and diagnosis as appropriate pending reevaluation and review of above. right side Pain Score (Numeric/FACES): 8 - Related Data Allergies Allergy/AdvReac Type Severity Reaction Status Date / Time No Known Allergies Allergy Verified 10/13/17 19:08 Home Meds: Home Meds Spironolactone [Aldactone] 25 mg PO DAILY 04/27/17 [History] Lactulose [Kristalose] 20 gm PO DAILY 07/04/17 [History] Pantoprazole Sodium [Protonix] 40 mg PO DAILY 07/04/17 [History] Lactulose [Chronulac] 20 gm PO DAILY #1 cup 07/08/17 [Rx] Furosemide 20 mg PO DAILY 08/07/17 [History] Propranolol [Inderal] 10 mg PO DAILY 08/07/17 [History] Past Medical History - Past Health History Medical/Surgical History: Denies Medical/Surgical History HEENT 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: Other (See Below) Other HEENT History: Dry eyes syndrome, wears reading eyeglasses Cardiovascular 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: None Respiratory 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: None Gastrointestinal 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: Cirrhosis, Hepatitis, Other (See Below) Other Gastrointestinal History: esophageal varicies Genitourinary 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: Other (See Below) Other Genitourinary History: had UTI when she was a teenager 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 CONSULTANT 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: 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 , Neurological 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: Other (See Below) Other Neuro History: Started to have a bad headache recently Psychiatric 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: Anxiety Endocrine/Metabolic 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: None Hematologic 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: None Immunologic 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: None Oncologic (Cancer) 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: None Dermatologic 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: Other (See Below) Other Dermatologic History: dry skin - Infectious Disease History Infectious Disease 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: Hepatitis C - Past Surgical History Head Surgeries/Procedures: Reports: None HEENT Surgical 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: None GI Surgical 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: Colonoscopy, EGD, Esophageal Dilatation Musculoskeletal Surgical 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: None Social & Family History - Family History Family Medical History: Noncontributory Neurological: Reports: Alzheimers Disease, Dementia - Tobacco Use Smoking Status *Q: Never Smoker Years of Tobacco use: 5 Packs/Tins Daily: 0.1 Used Tobacco, but Quit: No Second Hand Smoke Exposure: No - Caffeine Use Caffeine Use: Reports: None Caffeine Use Comment: 1 cup every other day - Recreational Drug Use Recreational Drug Use: No ED ROS GENERAL - Review of Systems Review Of Systems: ROS reveals no pertinent complaints other than HPI. ED EXAM, GENERAL - Physical Exam Exam: See Below Course - Vital Signs Last Recorded V/S: Last Vital Signs Temp 99.7 F 10/13/17 21:51 Pulse 77 10/13/17 21:51 Resp 18 10/13/17 21:51 BP 100/59 L 10/13/17 21:51 Pulse Ox 96 10/13/17 21:51 - Orders/Labs/Meds Orders: Active Orders 24 hr Category Date Time Status EKG Documentation Completion [RC] STAT Care 10/13/17 19:17 Active Chest 1V Frontal [CR] Stat Exams 10/13/17 19:17 Taken CULTURE BLOOD [BC] Stat Lab 10/13/17 20:30 Received CULTURE BLOOD [BC] Stat Lab 10/13/17 20:43 Received Sodium Chloride 0.9% [Normal Saline] 500 ml Med 10/13/17 19:15 Active IV STAT Blood Culture x2 Reflex Set [OM.PC] Stat Oth 10/13/17 20:19 Ordered Medication Orders Sodium Chloride (Normal Saline) 500 mls @ 999 mls/hr IV STAT GER Last Admin: 10/13/17 19:45 Dose: 999 mls/hr Labs: Laboratory Tests 10/13/17 10/13/17 10/13/17 Range/Units 19:19 19:19 20:43 WBC 5.99 (4.0-11.0) K/uL RBC 3.83 L (4.30-5.90) M/uL Hgb 13.2 (12.0-16.0) g/dL Hct 37.7 (36.0-46.0) % MCV 98.4 H (80.0-98.0) fL MCH 34.5 H (27.0-32.0) pg MCHC 35.0 (31.0-37.0) g/dL RDW Std Deviation 62.6 H (28.0-62.0) fl RDW Coeff of Tracey 17 H (11.0-15.0) % Plt Count 61 L (150-400) K/uL MPV 9.90 (7.40-12.00) fL Add Manual Diff YES Neutrophils % (Manual) 64 (48.0-80.0) % Lymphocytes % (Manual) 18 (16.0-40.0) % Monocytes % (Manual) 15 (0.0-15.0) % Eosinophils % (Manual) 2 (0.0-7.0) % Basophils % (Manual) 1 (0.0-1.5) % Nucleated RBC % 0.0 /100WBC Absolute Seg Neuts 3.8 (1.4-5.7) Lymphocytes # (Manual) 1.1 (0.6-2.4) Monocytes # (Manual) 0.9 H (0.0-0.8) Eosinophils # (Manual) 0.1 (0.0-0.7) Basophils # (Manual) 0.1 (0.0-0.1) Nucleated RBCs # 0 K/uL INR Sodium (136-145) mmol/L Potassium (3.5-5.1) mmol/L Chloride (98-107) mmol/L Carbon Dioxide (21.0-32.0) mmol/L BUN (7.0-18.0) mg/dL Creatinine (0.6-1.0) mg/dL Est Cr Clr Drug Dosing Estimated GFR (MDRD) ml/min Glucose (74-106) mg/dL Calcium (8.5-10.1) mg/dL Total Bilirubin (0.2-1.0) mg/dL AST (15-37) U/L ALT (14-63) U/L Alkaline Phosphatase (46-116) U/L Ammonia (19-54) ug/dL Troponin I (0.000-0.056) ng/mL Total Protein (6.4-8.2) g/dL Albumin (3.4-5.0) g/dL Globulin (2.0-3.5) g/dL Albumin/Globulin Ratio (1.3-2.8) Urine Color YELLOW Urine Appearance CLEAR Urine pH 6.0 (5.0-8.0) Ur Specific [place] 1.025 (1.001-1.035) Urine Protein NEGATIVE (NEGATIVE) mg/dL Urine Glucose (UA) NEGATIVE (NEGATIVE) mg/dL Urine Ketones NEGATIVE (NEGATIVE) mg/dL Urine Occult Blood SMALL H (NEGATIVE) Urine Nitrite NEGATIVE (NEGATIVE) Urine Bilirubin SMALL H (NEGATIVE) Urine Ictotest NEGATIVE Urine Urobilinogen >=8.0 H (<2.0) EU/dL Ur Leukocyte Esterase NEGATIVE (NEGATIVE) Urine RBC 1-2 (0-2/HPF) Urine WBC 0-1 (0-5/HPF) Ur Epithelial Cells FEW (NONE-FEW) Urine Bacteria FEW (NEGATIVE) Urine Opiates Screen NEGATIVE (NEGATIVE) Ur Oxycodone Screen NEGATIVE (NEGATIVE) Urine Methadone Screen NEGATIVE (NEGATIVE) Ur Barbiturates Screen NEGATIVE (NEGATIVE) Ur Phencyclidine Scrn NEGATIVE (NEGATIVE) Ur Amphetamine Screen NEGATIVE (NEGATIVE) U Methamphetamines Scrn NEGATIVE (NEGATIVE) U Benzodiazepines Scrn NEGATIVE (NEGATIVE) U Cocaine Metab Screen NEGATIVE (NEGATIVE) U Marijuana (THC) Screen NEGATIVE (NEGATIVE) Ethyl Alcohol mg/dL 10/13/17 10/13/17 10/13/17 Range/Units 20:43 20:43 20:43 WBC (4.0-11.0) K/uL RBC (4.30-5.90) M/uL Hgb (12.0-16.0) g/dL Hct (36.0-46.0) % MCV (80.0-98.0) fL MCH (27.0-32.0) pg MCHC (31.0-37.0) g/dL RDW Std Deviation (28.0-62.0) fl RDW Coeff of Tracey (11.0-15.0) % Plt Count (150-400) K/uL MPV (7.40-12.00) fL Add Manual Diff Neutrophils % (Manual) (48.0-80.0) % Lymphocytes % (Manual) (16.0-40.0) % Monocytes % (Manual) (0.0-15.0) % Eosinophils % (Manual) (0.0-7.0) % Basophils % (Manual) (0.0-1.5) % Nucleated RBC % /100WBC Absolute Seg Neuts (1.4-5.7) Lymphocytes # (Manual) (0.6-2.4) Monocytes # (Manual) (0.0-0.8) Eosinophils # (Manual) (0.0-0.7) Basophils # (Manual) (0.0-0.1) Nucleated RBCs # K/uL INR 1.40 Sodium 141 (136-145) mmol/L Potassium 4.0 (3.5-5.1) mmol/L Chloride 111 H (98-107) mmol/L Carbon Dioxide 23.5 (21.0-32.0) mmol/L BUN 15 (7.0-18.0) mg/dL Creatinine 0.9 (0.6-1.0) mg/dL Est Cr Clr Drug Dosing TNP Estimated GFR (MDRD) > 60.0 ml/min Glucose 104 (74-106) mg/dL Calcium 8.8 (8.5-10.1) mg/dL Total Bilirubin 4.2 H (0.2-1.0) mg/dL AST 79 H (15-37) U/L ALT 45 (14-63) U/L Alkaline Phosphatase 140 H (46-116) U/L Ammonia 67 H (19-54) ug/dL Troponin I (0.000-0.056) ng/mL Total Protein 6.7 (6.4-8.2) g/dL Albumin 2.3 L (3.4-5.0) g/dL Globulin 4.4 H (2.0-3.5) g/dL Albumin/Globulin Ratio 0.5 L (1.3-2.8) Urine Color Urine Appearance Urine pH (5.0-8.0) Ur Specific [place] (1.001-1.035) Urine Protein (NEGATIVE) mg/dL Urine Glucose (UA) (NEGATIVE) mg/dL Urine Ketones (NEGATIVE) mg/dL Urine Occult Blood (NEGATIVE) Urine Nitrite (NEGATIVE) Urine Bilirubin (NEGATIVE) Urine Ictotest Urine Urobilinogen (<2.0) EU/dL Ur Leukocyte Esterase (NEGATIVE) Urine RBC (0-2/HPF) Urine WBC (0-5/HPF) Ur Epithelial Cells (NONE-FEW) Urine Bacteria (NEGATIVE) Urine Opiates Screen (NEGATIVE) Ur Oxycodone Screen (NEGATIVE) Urine Methadone Screen (NEGATIVE) Ur Barbiturates Screen (NEGATIVE) Ur Phencyclidine Scrn (NEGATIVE) Ur Amphetamine Screen (NEGATIVE) U Methamphetamines Scrn (NEGATIVE) U Benzodiazepines Scrn (NEGATIVE) U Cocaine Metab Screen (NEGATIVE) U Marijuana (THC) Screen (NEGATIVE) Ethyl Alcohol mg/dL 10/13/17 10/13/17 Range/Units 20:43 20:43 WBC (4.0-11.0) K/uL RBC (4.30-5.90) M/uL Hgb (12.0-16.0) g/dL Hct (36.0-46.0) % MCV (80.0-98.0) fL MCH (27.0-32.0) pg MCHC (31.0-37.0) g/dL RDW Std Deviation (28.0-62.0) fl RDW Coeff of Tracey (11.0-15.0) % Plt Count (150-400) K/uL MPV (7.40-12.00) fL Add Manual Diff Neutrophils % (Manual) (48.0-80.0) % Lymphocytes % (Manual) (16.0-40.0) % Monocytes % (Manual) (0.0-15.0) % Eosinophils % (Manual) (0.0-7.0) % Basophils % (Manual) (0.0-1.5) % Nucleated RBC % /100WBC Absolute Seg Neuts (1.4-5.7) Lymphocytes # (Manual) (0.6-2.4) Monocytes # (Manual) (0.0-0.8) Eosinophils # (Manual) (0.0-0.7) Basophils # (Manual) (0.0-0.1) Nucleated RBCs # K/uL INR Sodium (136-145) mmol/L Potassium (3.5-5.1) mmol/L Chloride (98-107) mmol/L Carbon Dioxide (21.0-32.0) mmol/L BUN (7.0-18.0) mg/dL Creatinine (0.6-1.0) mg/dL Est Cr Clr Drug Dosing Estimated GFR (MDRD) ml/min Glucose (74-106) mg/dL Calcium (8.5-10.1) mg/dL Total Bilirubin (0.2-1.0) mg/dL AST (15-37) U/L ALT (14-63) U/L Alkaline Phosphatase (46-116) U/L Ammonia (19-54) ug/dL Troponin I < 0.050 (0.000-0.056) ng/mL Total Protein (6.4-8.2) g/dL Albumin (3.4-5.0) g/dL Globulin (2.0-3.5) g/dL Albumin/Globulin Ratio (1.3-2.8) Urine Color Urine Appearance Urine pH (5.0-8.0) Ur Specific [place] (1.001-1.035) Urine Protein (NEGATIVE) mg/dL Urine Glucose (UA) (NEGATIVE) mg/dL Urine Ketones (NEGATIVE) mg/dL Urine Occult Blood (NEGATIVE) Urine Nitrite (NEGATIVE) Urine Bilirubin (NEGATIVE) Urine Ictotest Urine Urobilinogen (<2.0) EU/dL Ur Leukocyte Esterase (NEGATIVE) Urine RBC (0-2/HPF) Urine WBC (0-5/HPF) Ur Epithelial Cells (NONE-FEW) Urine Bacteria (NEGATIVE) Urine Opiates Screen (NEGATIVE) Ur Oxycodone Screen (NEGATIVE) Urine Methadone Screen (NEGATIVE) Ur Barbiturates Screen (NEGATIVE) Ur Phencyclidine Scrn (NEGATIVE) Ur Amphetamine Screen (NEGATIVE) U Methamphetamines Scrn (NEGATIVE) U Benzodiazepines Scrn (NEGATIVE) U Cocaine Metab Screen (NEGATIVE) U Marijuana (THC) Screen (NEGATIVE) Ethyl Alcohol <3 mg/dL Meds: Medications Generic Name Dose Route Start Last Admin Trade Name Freq PRN Reason Stop Dose Admin Sodium Chloride 500 mls @ 999 mls/hr 10/13/17 19:15 10/13/17 19:45 Normal Saline IV 999 mls/hr STAT GER Administration Departure - Departure Time of Disposition: 21:55 Disposition: Refer to Observation Condition: Poor Clinical Impression: Abdominal pain, Cholelithiases, Confusion - Discharge Information Referrals: PCP,None [Primary Care Provider] - Forms: ED Department Discharge - My Orders Last 24 Hours: My Active Orders 10/13/17 19:15 Sodium Chloride 0.9% [Normal Saline] 500 ml IV STAT 10/13/17 19:17 EKG Documentation Completion [RC] STAT Chest 1V Frontal [CR] Stat 10/13/17 20:19 Blood Culture x2 Reflex Set [OM.PC] Stat 10/13/17 20:30 CULTURE BLOOD [BC] Stat 10/13/17 20:43 CULTURE BLOOD [BC] Stat - Assessment/Plan Last 24 Hours: My Active Orders 10/13/17 19:15 Sodium Chloride 0.9% [Normal Saline] 500 ml IV STAT 10/13/17 19:17 EKG Documentation Completion [RC] STAT Chest 1V Frontal [CR] Stat 10/13/17 20:19 Blood Culture x2 Reflex Set [OM.PC] Stat 10/13/17 20:30 CULTURE BLOOD [BC] Stat 10/13/17 20:43 CULTURE BLOOD [BC] Stat
[2017-10-13] MEDS ORDERED: Sodium Chloride 0.9% 500 ML IV SCH (19:15)
[2017-10-13 21:09] LABS: CHLORIDE,CL 111 mmol/L (98-107); SODIUM,NA 141 mmol/L (136-145)
[2017-10-13] MEDS ORDERED: Sodium Chloride 0.9% 1,000 ML IV SCH ×2 (22:00)
[2017-10-13] MEDS ORDERED: traMADol 50 MG Tab PO PRN (23:29)
[2017-10-13] MEDS ORDERED: Ondansetron 4 MG/2 ML SDV IVPUSH PRN (23:30)
[2017-10-13] MEDS ORDERED: Sodium Chloride 0.9% 2.5 ML Syringe FLUSH PRN (23:34)
[2017-10-13] MEDS ORDERED: Sodium Chloride 0.9% 10 ML Syringe FLUSH PRN (23:34)
[2017-10-14 07:54] VITALS: BP 101/54
[2017-10-14 08:16] LABS: CHLORIDE,CL 112 mmol/L (98-107); SODIUM,NA 142 mmol/L (136-145)
--- NOTE | 2017-10-14 08:35 | PCM.HP ---
<RafaelDarren pond Z - Last Filed: 10/14/17 18:23> H&P History of Present Illness - General Date of Service: 10/14/17 Source of Information: Patient History Limitations: Reports: No Limitations - History of Present Illness Initial Comments - Free Text/Narative: This is 57-year-old female that was admitted from the ED to the floor due to confusion. Patient had a CT of the abdomen that was done which did show a pelvic mass. When I arrived at the nursing station this morning to assess the patient and do the history and physical the patient was adamant about leaving she did not want anything done to her. Patient when I walked into the room to speak with her was already in her dress close refusing to let me assess her refusing to let me explained to her that we needed to do a proper assessment I did indicate to her that there was a pelvic mass seen on the CT which she stated that she needed to go to her appointment in my not today for a paracentesis and that it didn't matter what we said that she would be leaving. The patient was alert and oriented when she was making this decision the nursing staff was present. right side Pain Score (Numeric/FACES): 8 - Related Data Allergies/Adverse Reactions: Allergies Allergy/AdvReac Type Severity Reaction Status Date / Time No Known Allergies Allergy Verified 10/13/17 19:08 Home Medications: Home Meds Spironolactone [Aldactone] 25 mg PO DAILY 04/27/17 [History] Lactulose [Kristalose] 20 gm PO DAILY 07/04/17 [History] Pantoprazole Sodium [Protonix] 40 mg PO DAILY 07/04/17 [History] Lactulose [Chronulac] 20 gm PO DAILY #1 cup 07/08/17 [Rx] Furosemide 20 mg PO DAILY 08/07/17 [History] Propranolol [Inderal] 10 mg PO DAILY 08/07/17 [History] Past Medical History - Past Health History Medical/Surgical History: Denies Medical/Surgical History HEENT 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: Other (See Below) Other HEENT History: Dry eyes syndrome, wears reading eyeglasses Cardiovascular 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: None Respiratory 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: None Gastrointestinal 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: Cirrhosis, Hepatitis, Other (See Below) Other Gastrointestinal History: esophageal varicies Genitourinary 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: Other (See Below) Other Genitourinary History: had UTI when she was a teenager, "kidney surgery" 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 , Neurological 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: Other (See Below) Other Neuro History: Started to have a bad headache recently Psychiatric 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: Anxiety, Other (See Below) Other Psychiatric History: confusion started 3 days ago Endocrine/Metabolic 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: None Hematologic History: Reports: None Immunologic History: Reports: None Oncologic (Cancer) History: Reports: None Dermatologic History: Reports: Other (See Below) Other Dermatologic History: dry skin - Infectious Disease History Infectious Disease History: Reports: Hepatitis C - Past Surgical History Head Surgeries/Procedures: Reports: None HEENT Surgical History: Reports: None Respiratory Surgical History: Reports: None GI Surgical History: Reports: Colonoscopy, EGD, Esophageal Dilatation Musculoskeletal Surgical History: Reports: None Social & Family History - Family History Family Medical History: Noncontributory Neurological: Reports: Alzheimers Disease, Dementia - Tobacco Use Smoking Status *Q: Former Smoker Years of Tobacco use: 7 Packs/Tins Daily: 0.1 Used Tobacco, but Quit: No Second Hand Smoke Exposure: No - Caffeine Use Caffeine Use: Reports: Soda Caffeine Use Comment: 1 cup every other day - Recreational Drug Use Recreational Drug Use: No H&P Review of Systems - Review of Systems: Review Of Systems: Unable To Obtain Exam - Exam Exam: Not Obtained - Vital Signs Vital Signs: Last Vital Signs Temp 36.2 C 10/14/17 07:53 Pulse 60 10/14/17 07:53 Resp 20 10/14/17 07:53 BP 101/54 L 10/14/17 07:53 Pulse Ox 91 L 10/14/17 07:53 Weight: 50.485 kg - Patient Data Lab Results Last 24 hrs: Laboratory Results - last 24 hr 10/14/17 10/14/17 Range/Units 07:15 07:15 WBC 4.18 (4.0-11.0) K/uL RBC 3.52 L (4.30-5.90) M/uL Hgb 12.0 (12.0-16.0) g/dL Hct 34.4 L (36.0-46.0) % MCV 97.7 (80.0-98.0) fL MCH 34.1 H (27.0-32.0) pg MCHC 34.9 (31.0-37.0) g/dL RDW Std Deviation 61.3 (28.0-62.0) fl RDW Coeff of Tracey 17 H (11.0-15.0) % Plt Count 51 L (150-400) K/uL MPV 11.00 (7.40-12.00) fL Neut % (Auto) 42.8 L (48.0-80.0) % Lymph % (Auto) 40.9 H (16.0-40.0) % [place] % (Auto) 13.4 (0.0-15.0) % Eos % (Auto) 2.4 (0.0-7.0) % Baso % (Auto) 0.5 (0.0-1.5) % Neut # (Auto) 1.8 (1.4-5.7) K/uL Lymph # (Auto) 1.7 (0.6-2.4) K/uL [place] # (Auto) 0.6 (0.0-0.8) K/uL Eos # (Auto) 0.1 (0.0-0.7) K/uL Baso # (Auto) 0.0 (0.0-0.1) K/uL Nucleated RBC % 0.0 /100WBC Nucleated RBCs # 0 K/uL Sodium 142 (136-145) mmol/L Potassium 3.7 (3.5-5.1) mmol/L Chloride 112 H (98-107) mmol/L Carbon Dioxide 24.2 (21.0-32.0) mmol/L BUN 12 (7.0-18.0) mg/dL Creatinine 0.7 (0.6-1.0) mg/dL Est Cr Clr Drug Dosing 72.37 mL/min Estimated GFR (MDRD) > 60.0 ml/min Glucose 88 (74-106) mg/dL Calcium 7.9 L (8.5-10.1) mg/dL Total Bilirubin 3.1 H (0.2-1.0) mg/dL AST 69 H (15-37) U/L ALT 35 (14-63) U/L Alkaline Phosphatase 116 (46-116) U/L Total Protein 5.6 L (6.4-8.2) g/dL Albumin 1.8 L (3.4-5.0) g/dL Globulin 3.8 H (2.0-3.5) g/dL Albumin/Globulin Ratio 0.5 L (1.3-2.8) Result Diagrams: 10/14/17 07:15 10/14/17 07:15 *Q Meaningful Use (ADM) - VTE *Q VTE Criteria *Q: - Stroke *Q Stroke Criteria *Q: - AMI *Q AMI Criteria *Q: Problem List Initiated/Reviewed/Updated: Yes Orders Last 24hrs: Active Orders 24 hr Category Date Time Status EKG Documentation Completion [RC] STAT Care 10/13/17 23:22 Active Regular Diet [DIET] Diet 10/14/17 Breakfast Active Abdomen Pelvis wo Cont [CT] Routine Exams 10/14/17 01:46 Taken Ondansetron [Zofran] Med 10/13/17 23:30 Active 4 mg IVPUSH Q3H PRN Sodium Chloride 0.9% [Saline Flush] Med 10/13/17 23:34 Active 10 ml FLUSH ASDIRECTED PRN Sodium Chloride 0.9% [Saline Flush] Med 10/13/17 23:34 Active 2.5 ml FLUSH ASDIRECTED PRN traMADol [Ultram] Med 10/13/17 23:29 Active 50 mg PO Q6H PRN Convert IV to Saline Lock [OM.PC] Routine Oth 10/13/17 23:34 Ordered Medication Orders Sodium Chloride (Normal Saline) 500 mls @ 999 mls/hr IV STAT GER Last Admin: 10/13/17 19:45 Dose: 999 mls/hr Ondansetron HCl (Zofran) 4 mg IVPUSH Q3H PRN PRN Reason: Nausea/Vomiting Sodium Chloride (Saline Flush) 10 ml FLUSH ASDIRECTED PRN PRN Reason: Keep Vein Open Sodium Chloride (Saline Flush) 2.5 ml FLUSH ASDIRECTED PRN PRN Reason: Keep Vein Open Tramadol HCl (Ultram) 50 mg PO Q6H PRN PRN Reason: Pain Last Admin: 10/14/17 00:12 Dose: 50 mg Assessment/Plan Comment:: 87-year-old female presenting with confusion and history of liver cirrhosis and ascites presenting with a new onset pelvic mass appreciated on the CT abdomen. Patient left the facility AMA despite trying to explain to the patient that it was very important for us to assess her for her confusion, liver dysfunction, and pelvic mass that was seen on CT. Patient refused and was adamant about going home because she wanted to go to her appointment in my not with her GI and she stated that they would do a better job in assessing her then we could hear. Patient was adamant about leaving despite us extensively trying to explain to her the importance of being fully evaluated. I have however made an appointment outpatient for the patient to assess the pelvic mass at Dr. Torres office FACILITIES COORDINATOR on 10/26/2017 at 9:30. I have called the patient's phone and patient did not picker / packer however have left an extensive message and will try to get hold of the patient again to ensure that she understands that she needs to be assessed by FACILITIES COORDINATOR. <Yeyo White - Last Filed: 10/19/17 11:04> Exam - Vital Signs Vital Signs: Last Vital Signs Temp 36.2 C 10/14/17 07:53 Pulse 60 10/14/17 07:53 Resp 20 10/14/17 07:53 BP 101/54 L 10/14/17 07:53 Pulse Ox 91 L 10/14/17 07:53 - Patient Data Result Diagrams: 10/14/17 07:15 10/14/17 07:15 *Q Meaningful Use (ADM) - VTE *Q VTE Criteria *Q: - Stroke *Q Stroke Criteria *Q: - AMI *Q AMI Criteria *Q:
--- NOTE | 2017-10-14 12:41 | CR ---
EXAM DATE: 10/13/17 PATIENT'S AGE: 57 [facility] Facility: [place], [place] Site . Site : [id number] Study: XRay Chest [id number] 8:26:23 PM Ordering Physician: aJcob Garcia Final Report: INDICATION: rt side chest pain, AMS TECHNIQUE: Chest 1 view COMPARISON: August 25, 2017 FINDINGS: Cardiovascular and mediastinum: Heart size and vasculature are normal in caliber and appearance. Mediastinum is within normal limits. Lungs and pleural space: Right-sided pleural effusion with associated compressive atelectasis. Right middle lobe consolidation. No pneumothorax. Bones and soft tissues: No significant findings. IMPRESSION: Right-sided pleural effusion with associated compressive atelectasis. Right middle lobe consolidation Dictated by Umer Fernández MD @ 10/13/2017 8:27:43 PM Dictated by: Umer Fernández MD @ 10/13/2017 20:27:55 (Electronic Signature) Report Signed by Proxy. [facility]
--- NOTE | 2017-10-14 12:42 | CT ---
[facility] [place] DATE: 10/13/17 PATIENT'S AGE: 57 Patient: SAVANNAH SANTOYO Facility: [place], [place] Site . Site : [id number] Study: CT Abdomen/Pelvis [id number]/2/2018 2:25:04 AM Ordering Physician: Christopher Orona Final Report: INDICATION: Acute abdominal pain TECHNIQUE: CT abdomen and pelvis without contrast. COMPARISON: 08/11/2017 FINDINGS: Lower chest: A moderate to large right pleural effusion again seen with mild adjacent right lower lobe atelectasis. Apparently complete right middle lobe atelectasis. Emphysematous changes. Liver: A cirrhotic liver again seen. Spleen: Mild splenomegaly measuring 13.4 centimeters. A calcified splenic granuloma Pancreas: Unremarkable. Gallbladder and bile ducts: Cholelithiasis. Adrenal glands: Unremarkable. Kidneys: No hydronephrosis or discrete urolithiasis. A subcentimeter fat attenuation left renal lesion again seen, compatible with a small angiomyolipoma GI tract: Moderately distended fluid and debris-filled stomach. Wall thickening of small bowel segments and the duodenum. No findings of appendicitis. Areas of colonic wall thickening. Vascular structures: Arthrosclerotic changes. Multiple collateral vessels again seen consistent with portal hypertension. Lymph nodes: Several shotty upper abdominal lymph nodes, nonspecific. Miscellaneous: Moderate ascites and diffuse peritoneal edema. No free air. Subcutaneous edema. Pelvic Organs: A 4.5 x 3.6 x 5.1 centimeter left adnexal mass containing low density component and a focus of increased attenuation superiorly on image 101. A 1.6 x 1.4 centimeter soft tissue structure in the right pelvis on image 100 probably represents the right ovary. No gross uterine or bladder abnormality seen. Bones: No significant change. IMPRESSION: Cirrhosis and portal hypertension again seen. Moderate ascites and diffuse peritoneal edema. Wall thickening involving small bowel and colonic segments, nonspecific in the setting of cirrhosis and portal hypertension. Correlate clinically for enterocolitis. A 5 centimeter left adnexal mass, highly concerning for neoplasm. Recommend sonographic evaluation and gynecological consultation. A moderate to large right pleural effusion again seen. Complete right middle lobe atelectasis. Dictated by Tyrone Kyle MD @ 10/14/2017 2:42:28 AM Dictated by: Tyrone Kyle MD @ 10/14/2017 02:42:41 (Electronic Signature) Report Signed by Proxy. [facility]
== END 2017-10-14 09:17 | disposition home or self-care (01) ==
LOC: MW.ED 18:51 → MW.MS 22:05
PROVIDERS: ADMIT Internal Medicine; ATTEND Internal Medicine
DX: R41.0 Disorientation, unspecified (principal); R19.00 Intra-abdominal and pelvic swelling, mass and lump, unspecified site; K74.60 Unspecified cirrhosis of liver; F41.9 Anxiety disorder, unspecified; B19.20 Unspecified viral hepatitis C without hepatic coma; R18.8 Other ascites; Z79.899 Other long term (current) drug therapy; Z87.891 Personal history of nicotine dependence
CPT/HCPCS: 36415; 71045; 74176; 80053; 80305; 81001; 82140; 84484; 85025; 85610; 87040; 93005; 96360; 96361; 99285; A9270; G0378; G0480; J7040; 99283

== ENCOUNTER 2017-10-28 16:39 | Emergency (ER) | payer MEDICARE ==
[2017-10-28] MEDS ORDERED: Sodium Chloride 0.9% 1,000 ML IV ONE (16:51)
[2017-10-28] MEDS ORDERED: Ketorolac 30 MG/ML SDV IVPUSH ONE (16:55)
[2017-10-28 17:35] LABS: CHLORIDE,CL 107 mmol/L (98-107); SODIUM,NA 139 mmol/L (136-145)
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
[2017-10-28 18:33] VITALS: BP 101/71
== END 2017-10-28 18:43 | disposition home or self-care (01) ==
LOC: MW.ED 16:39
DX: R10.9 Unspecified abdominal pain (principal); Z79.899 Other long term (current) drug therapy
CPT/HCPCS: 36415; 80053; 80305; 81001; 82150; 83690; 85025; 96361; 96374; 99284; J1885; J7040; 99283